=== PATIENT | male | born 1955 | race Caucasian/White ===

== ENCOUNTER 2021-09-03 08:51 | Inpatient (IN) | payer BC, OTHER ==
--- OUTSIDE RECORDS SUMMARY | 2021-09-03 08:55 | XMS REPORT | Continuity of Care Document ---
:1955 Author Organization [facility] t Address [address] [place] [address] Care Team Providers Name Role Phone GADHIA Attending Clinician Unavailable Doctor Unassigned, Name Attending Clinician Unavailable AMELIA Attending Clinician Unavailable MD VIGNESH THAYER Attending Clinician Unavailable Maya James PA-C Attending Clinician Marti LYN, M Attending Clinician Singer ENGLE Attending Clinician Catrina CARRILLO Attending Clinician Otf Fernandez MD Attending Clinician Attending Clinician Unavailable TONY Admitting Clinician Unavailable MD TONY Admitting Clinician Unavailable Otf Fernandez MD Admitting Clinician Payers Payer Name Policy Type Policy Number Effective Date Expiration Date S ource Problems Condition Condition Condition Status Onset Resolution Last Treating Co mments Source Name Details Category Date Date Treatment Clinician Date Acute Acute Disease Active Univers arterial arterial 6- ity of ischemic ischemic 00:00: [place] stroke, stroke, 00 Medical multifocal multifocal Br anch , , posterior posterior circulatio circulatio n n Occlusion 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 00:00: [place] of right of right 00 Medica l vertebral vertebral Bran ch artery artery Stroke of Stroke of Disease Active Uni vers uncertain uncertain - [place] of pathology pathology [place] High High Disease Active Univers cholestero cholestero it y of l l [facility] Meniere Meniere Disease Active Univers disease disease ity of [facility] Diabetes Diabetes Disease Active Unive rs ity of [facility] Allergies, Adverse Reactions, Alerts Allergy Allergy Status Severity Reaction(s) Onset Inactive Treating Comm ents Source Name Type Date Date Clinician NO KNOWN Drug Active Univers ALLERGIE Class ity of S [facility] Social History Social Habit Start Date Stop Date Quantity Comments Source Exposure to Not sure University of SARS-CoV-2 [place] Medical (event) Branch Tobacco use and 2021-01-08 2021-01-08 Never used Universit y of exposure 00:00:00 00:00:00 [facility] Alcohol intake 2021-01-08 2021-01-08 Current University of 00:00:00 00:00:00 non-drinker of [facility] alcohol Branch (finding) Tobacco Comment 2018-05-08 2018-05-08 Quit in 2015 Univers ity of 00:00:00 00:00:00 [facility] [birth year] [facility] Smoking Status Start Date Stop Date Source Former smoker 2021-01-08 00:00:00 2021-01-08 00:00:00 Universi ty [facility] Medications Ordered Filled Start Stop Current Ordering Indication Dosage Frequency Signature Comments Components Source Medication Medication Date Date Medication? Clinician (SIG) Name Name atorvastati Yes 80mg 80 mg, Univ ers n (LIPITOR) 6-29 Oral, QHS, it y of tablet 80 02:00: First dose [place] mg 00 (after Medical last Branch modificati on) on Tue01/12/21 at 2100, Until Discontinu ed, Routine glipiZIDE Yes 5mg Take 5 mg Uni vers (GLUCOTROL) 6-28 by mouth 3 it y of 5 mg tablet 23:11: (three) [place] 58 times Medical daily Branch before meals. Thyroid, Yes 120mg Take 120 Univ ers Pork, 6-28 mg by ity of (ARMOUR 23:11: mouth [place] THYROID) 58 daily. Medical 120 mg Tab Branch warfarin Yes 7.5mg Take 7.5 Univ ers (COUMADIN) 6-28 mg by ity of 7.5 mg 23:11: mouth. [place] tablet 58 Medical Branch metformin Yes 500mg Take 500 Uni vers ER 6-28 mg by ity of (GLUCOPHAGE 23:11: mouth 5 [place] as -XR) 500 mg 58 (five) Medica l 24 hr times Branch tablet daily. thyroid Yes 30mg Take 30 mg Univ ers (ARMOUR 6-28 by mouth ity of THYROID) 30 23:11: [place]. [place] mg tablet 58 Medical Branch Cinnamon Yes 1000mg Take 1,000 U nivers Bark 6-28 mg by ity of (CINNAMON) 23:11: mouth [place] 500 mg Cap 58 daily. Medical Branch triamterene Yes 1{tbl} Take 1 [place] -hydrochlor 6-28 tablet by ity of othiazid 23:11: mouth [place] 37.5-25 mg 58 daily. Medical tablet Branch multivit-mi Yes 1{tbl} Take 1 [place] n/FA/lycope 6-28 tablet by ity of n/lutein 23:11: mouth [place] (CENTRUM 58 daily. Medical SILVER MEN Branch ORAL) glipiZIDE Yes 10mg Take 10 mg [place] 10 mg 6-28 by mouth 3 ity of tablet 23:11: (three) [place] 58 times Medical daily Branch before meals. famotidine Yes 20mg Take 20 mg U nivers (PEPCID) 20 6-28 by mouth ity of mg tablet 23:11: daily. [place] 58 Medical Branch magnesium Yes 400mg Take 400 Uni vers carb,citrat 6-28 mg by ity of e,oxide 23:11: mouth [place] (MAGNESIUM 58 daily. Medical COMPLEX Branch ORAL) glipiZIDE Yes 5mg Take 5 mg Uni vers (GLUCOTROL) 6-28 by mouth 3 it y of 5 mg tablet 23:11: (three) [place] 58 times Medical daily Branch before meals. Thyroid, Yes 120mg Take 120 Univ ers Pork, 6-28 mg by ity of (ARMOUR 23:11: mouth [place] THYROID) 58 daily. Medical 120 mg Tab Branch warfarin Yes 7.5mg Take 7.5 Univ ers (COUMADIN) 6-28 mg by ity of 7.5 mg 23:11: mouth. [place] tablet 58 Medical Branch metformin Yes 500mg Take 500 Uni vers ER 6-28 mg by ity of (GLUCOPHAGE 23:11: mouth 5 [place] as -XR) 500 mg 58 (five) Medica l 24 hr times Branch tablet daily. thyroid Yes 30mg Take 30 mg Univ ers (ARMOUR 6-28 by mouth ity of THYROID) 30 23:11: [place]. [place] mg tablet 58 Medical Branch Cinnamon Yes 1000mg Take 1,000 U nivers Bark 6-28 mg by ity of (CINNAMON) 23:11: mouth [place] 500 mg Cap 58 daily. Medical Branch triamterene Yes 1{tbl} Take 1 [place] -hydrochlor 6-28 tablet by ity of othiazid 23:11: mouth [place] 37.5-25 mg 58 daily. Medical tablet Branch multivit-mi Yes 1{tbl} Take 1 [place] n/FA/lycope 6-28 tablet by ity of n/lutein 23:11: mouth [place] (CENTRUM 58 daily. Medical SILVER MEN Branch ORAL) glipiZIDE Yes 10mg Take 10 mg [place] 10 mg 6-28 by mouth 3 ity of tablet 23:11: (three) [place] 58 times Medical daily Branch before meals. famotidine Yes 20mg Take 20 mg U nivers (PEPCID) 20 6-28 by mouth ity of mg tablet 23:11: daily. [place] 58 Medical Branch magnesium Yes 400mg Take 400 Uni vers carb,citrat 6-28 mg by ity of e,oxide 23:11: mouth [place] (MAGNESIUM 58 daily. Medical COMPLEX Branch ORAL) glipiZIDE Yes 5mg Take 5 mg Uni vers (GLUCOTROL) 6-28 by mouth 3 it y of 5 mg tablet 23:11: (three) [place] 58 times Medical daily Branch before meals. Thyroid, Yes 120mg Take 120 Univ ers Pork, 6-28 mg by ity of (ARMOUR 23:11: mouth [place] THYROID) 58 daily. Medical 120 mg Tab Branch warfarin Yes 7.5mg Take 7.5 Univ ers (COUMADIN) 6-28 mg by ity of 7.5 mg 23:11: mouth. [place] tablet 58 Medical Branch metformin Yes 500mg Take 500 Uni vers ER 6-28 mg by ity of (GLUCOPHAGE 23:11: mouth 5 [place] as -XR) 500 mg 58 (five) Medica l 24 hr times Branch tablet daily. thyroid Yes 30mg Take 30 mg Univ ers (ARMOUR 6-28 by mouth ity of THYROID) 30 23:11: [place]. [place] mg tablet 58 Medical Branch Cinnamon Yes 1000mg Take 1,000 U nivers Bark 6-28 mg by ity of (CINNAMON) 23:11: mouth [place] 500 mg Cap 58 daily. Medical Branch triamterene Yes 1{tbl} Take 1 [place] -hydrochlor 6-28 tablet by ity of othiazid 23:11: mouth [place] 37.5-25 mg 58 daily. Medical tablet Branch multivit-mi Yes 1{tbl} Take 1 [place] n/FA/lycope 6-28 tablet by ity of n/lutein 23:11: mouth [place] (CENTRUM 58 daily. Medical SILVER MEN Branch ORAL) glipiZIDE Yes 10mg Take 10 mg [place] 10 mg 6-28 by mouth 3 ity of tablet 23:11: (three) [place] 58 times Medical daily Branch before meals. famotidine Yes 20mg Take 20 mg U nivers (PEPCID) 20 6-28 by mouth ity of mg tablet 23:11: daily. [place] 58 Medical Branch magnesium Yes 400mg Take 400 Uni vers carb,citrat 6-28 mg by ity of e,oxide 23:11: mouth [place] (MAGNESIUM 58 daily. Medical COMPLEX Branch ORAL) glipiZIDE Yes 5mg Take 5 mg Uni vers (GLUCOTROL) 6-28 by mouth 3 it y of 5 mg tablet 23:11: (three) [place] 58 times Medical daily Branch before meals. Thyroid, 0 Yes 120mg Take 120 Univ ers Pork, 6-28 mg by ity of (ARMOUR 23:11: mouth [place] THYROID) 58 daily. Medical 120 mg Tab Branch warfarin Yes 7.5mg Take 7.5 Univ ers (COUMADIN) 6-28 mg by ity of 7.5 mg 23:11: mouth. [place] tablet 58 Medical Branch metformin Yes 500mg Take 500 Uni vers ER 6-28 mg by ity of (GLUCOPHAGE 23:11: mouth 5 [place] as -XR) 500 mg 58 (five) Medica l 24 hr times Branch tablet daily. thyroid Yes 30mg Take 30 mg Univ ers (ARMOUR 6-28 by mouth ity of THYROID) 30 23:11: daily. [place] mg tablet 58 Medical Branch Cinnamon Yes 1000mg Take 1,000 U nivers Bark 6-28 mg by ity of (CINNAMON) 23:11: mouth [place] 500 mg Cap 58 daily. Medical Branch triamterene Yes 1{tbl} Take 1 [place] -hydrochlor 6-28 tablet by ity of othiazid 23:11: mouth [place] 37.5-25 mg 58 daily. Medical tablet Branch multivit-mi Yes 1{tbl} Take 1 [place] n/FA/lycope 6-28 tablet by ity of n/lutein 23:11: mouth [place] (CENTRUM 58 daily. Medical SILVER MEN Branch ORAL) glipiZIDE Yes 10mg Take 10 mg [place] 10 mg 6-28 by mouth 3 ity of tablet 23:11: (three) [place] 58 times Medical daily Branch before meals. famotidine Yes 20mg Take 20 mg U nivers (PEPCID) 20 6-28 by mouth ity of mg tablet 23:11: daily. [place] 58 Medical Branch magnesium Yes 400mg Take 400 Uni vers carb,citrat 6-28 mg by ity of e,oxide 23:11: mouth [place] (MAGNESIUM 58 daily. Medical COMPLEX Branch ORAL) warfarin Yes 7.5mg 7.5 mg, Unive rs (COUMADIN) 6-28 Oral, ity of tablet 7.5 22:00: DAILY AT [place] mg 00 1700, Medical First dose Branch (after last modificati on) on Tue01/12/21 at 1700, Until Discontinu ed, Routine
INR Goal Range: 2-3
IND ICATION (More than one indication for warfarin can be selected): DVT and/or PE ezetimibe-s 2020-2020- No 1{tbl} Take 1 Tab Univers imvastatin 6-28 06-28 by mouth ity of 10-80 19:09: 00:00 at [place] (VYTORIN 34 :00 bedtime. Medical ) Branch 10-80 mg tablet atorvastati 2021- No [id number] 80mg Take 1 Univers n 80 mg 01-12 tablet by ity of tablet 00:00: 04:59 mouth at [place] 00 :00 bedtime Medical for 360 Branch days. atorvastati 2021- No [id number] 80mg Take 1 Univers n 80 mg 01-12 tablet by ity of tablet 00:00: 04:59 mouth at [place] 00 :00 bedtime Medical for 360 Branch days. atorvastati 2021- No [id number] 80mg Take 1 Univers n 80 mg 01-12 tablet by ity of tablet 00:00: 04:59 mouth at [place] 00 :00 bedtime Medical for 360 Branch days. atorvastati 2021- No [id number] 80mg Take 1 Univers n 80 mg 01-12 tablet by ity of tablet 00:00: 04:59 mouth at [place] 00 :00 bedtime Medical for 360 Branch days. warfarin 2020- No 10mg 10 mg, Univer s (COUMADIN) 01-11 Oral, ity of tablet 10 22:00: 12:11 DAILY AT [place] as mg 00 :32 1700, Medical First dose Branch (after last modificati on) on 01/11/21 at 1700, Until Discontinu ed, Routine
INR Goal Range: 2-3
IND ICATION (More than one indication for warfarin can be selected): DVT and/or PE aspirin 81 2020- No [id number] 81mg Take 1 Univers mg chewable 01-11 tablet by it y of tablet 00:00: 04:59 mouth [place] 00 :00 daily for Medical 90 days. Branch vitamin 2020- No [id number] 1000ug Take 1 Univers B-12 1,000 01-11 tablet by ity of mcg tablet 00:00: 04:59 mouth [place] 00 :00 daily for Medical 90 days. Branch aspirin 81 2020- No [id number] 81mg Take 1 Univers mg chewable 01-11 tablet by it y of tablet 00:00: 04:59 mouth [place] 00 :00 daily for Medical 90 days. Branch vitamin 2020- No [id number] 1000ug Take 1 Univers B-12 1,000 01-11 tablet by ity of mcg tablet 00:00: 04:59 mouth [place] 00 :00 daily for Medical 90 days. Branch aspirin 81 2020- No [id number] 81mg Take 1 Univers mg chewable 01-11 tablet by it y of tablet 00:00: 04:59 mouth [place] 00 :00 daily for Medical 90 days. Branch vitamin 2020- No [id number] 1000ug Take 1 Univers B-12 1,000 01-11 tablet by ity of mcg tablet 00:00: 04:59 mouth [place] 00 :00 daily for Medical 90 days. Branch aspirin 81 2020- No [id number] 81mg Take 1 Univers mg chewable 01-11 tablet by it y of tablet 00:00: 04:59 mouth [place] 00 :00 daily for Medical 90 days. Branch vitamin 2020- No [id number] 1000ug Take 1 Univers B-12 1,000 01-11 tablet by ity of mcg tablet 00:00: 04:59 mouth [place] 00 :00 daily for Medical 90 days. Branch warfarin 2020- No 7.5mg 7.5 mg, Univ ers (COUMADIN) 01-10 Oral, ity of tablet 7.5 22:00: 13:58 DAILY AT [place] mg 00 :12 1700, Medical First dose Branch on 01/10/21 at 1700, Until Discontinu ed, Routine
INR Goal Range: 2-3
IND ICATION (More than one indication for warfarin can be selected): DVT and/or PE vitamin 2020- Yes 1000ug 1,000 mcg, [place] B-12 01-10 Oral, ity of (CYANOCOBAL 14:00: DAILY, [place] SANTO) 00 First dose Medical tablet on Sat Branch 1,000 mcg 01/10/21 at 0900, Until Discontinu ed, Routine polyethylen Yes 17g 17 g, Unive rs e glycol 01-10 Oral, ity of 3350 powder 14:00: DAILY, [place] 17 g 00 First dose Medical on Tue Branch 01/10/21 at 0900, Until Discontinu ed, Routine atorvastati 2020- No [id number] 40mg Take 1 Univers n 40 mg 01-10 tablet by ity of tablet 00:00: 00:00 mouth at [place] 00 :00 bedtime Medical for 90 Branch days. barium 2020- No [id number] 10mL 10 mL, Uni vers sulfate-NO 01-09 Oral, ity of CHARGE- 19:15: 19:20 ONCE, 1 [place] (VARIBAR 00 :00 dose, Fri Medica l NECTOR) 40 01/09/21 at Bra nch % (w/v) 1415, oral Routine suspension 10 mL barium 2020- No [id number] 40g 40 g, Univ ers sulfate 01-09 Oral, ity of (VARIBAR 19:15: 19:20 ONCE, 1 [place] THIN 00 :00 dose, Fri Medical LIQUID) 81 01/09/21 at Bra nch % (w/w) 1415, oral powder Routine 40 g sulfur 2020- No [id number] 5mL 5 mL, Univ ers hexafluorid 01-09 Intravenou i ty of e microsphr 17:15: 17:15 s, ONCE, 1 [place] (LUMASON) 00 :00 dose, Fri Medic al injection 5 01/09/21 at Br anch mL 1215, Routine
member of technical staff approving Restricted medication : MARIA LUISA GARCIA SALAM Saline Yes [id number] 6mL 6 mL, Unive rs Bubble 01-09 Injection, ity of Study 17:05: SEE-INSTRU [place] 59 CTIONS, Medical Starting Branch Tue01/09/21 at 1205, Until Discontinu ed, Routine aspirin Yes 81mg 81 mg, Univers chewable 01-09 Oral, ity of tablet 81 14:00: DAILY, [place] mg 00 First dose Medical on Fri Branch 01/09/21 at 0900, Until Discontinu ed, Routine sennosides- Yes 1{tbl} 1 tablet, [facility] docusate 01-09 Enteral, ity of sodium 14:00: DAILY, [place] (SENOKOT-S) 00 First dose Me dical 8.6-50 mg on Tue Branch per tablet 01/09/21 at 1 tablet 0900, Until Discontinu ed, Routine thyroid Yes 30mg 30 mg, Univers (ARMOUR 01-09 Oral, ity of THYROID) 11:00: QAM-0600, [place] tablet 30 00 First dose Medi nia mg on Tue Branch 01/09/21 at 0600, Until Discontinu ed, Routine atorvastati 2020- No 40mg 40 mg, Uni vers n (LIPITOR) 01-09 06-28 Oral, QHS, i ty of tablet 40 02:00: 18:59 First dose [place] mg 00 :01 on [facility] 01/08/21 at Branch 2100, Until Discontinu ed, Routine famotidine Yes 20mg 20 mg, Unive rs (PEPCID AC) 01-09 Oral, BID, it y of tablet 20 01:00: First dose [place] mg 00 on [facility] 01/08/21 at Branch 2000, Until Discontinu ed, Routine
Indicatio n for use: None of the above chlorhexidi Yes 15mL 15 mL, Univ ers ne -24 Oral ity of (PERIDEX) 23:00: ([place] 0.12 % 00 Spit Out), Medical mouthwash Q6H, First Bran ch 15 mL dose on [facility] 01/08/21 at 1800, Until Discontinu ed, Routine Sliding Yes Subcutaneo Univ ers Scale 6-24 us, TID ity of Insulin - 22:00: MEALS+HS, [place] Lispro 00 First dose Medical (HumaLOG) + on [facility] Branch Fsbg 01/08/21 at Testing 1700, Until Discontinu ed, Routine NaCl 0.9% 2020- No 1000mL at 42 Univ ers (NS) IV 01-08 06-27 mL/hr, IV ity of infusion 21:15: 03:37 Infusion, [place] 1,000 mL 00 :35 CONTINUOUS Medic al , Starting Branch [place] 01/08/21 at 1615, Until 01/10/21 at 2237, Routine enoxaparin No 1mg/kg 100 mg [place] (LOVENOX) 01-08 (rounded ity o f injection 20:15: 15:37 [place] 99.8 [place] 100 mg 00 :05 mg = 1 Medical mg/kg Branch ?99.8 kg), Subcutaneo us, Q12H ABX, First dose on [place] 01/08/21 at 1515, Until Discontinu ed, Routine famotidine 2020- No 40mg Take 40 mg Univers (PEPCID) 40 01-08 by mouth ity of mg tablet 20:02: 00:00 daily. [place] 39 :00 Medical Branch acetaminoph Yes 650mg 650 mg, [place] en 01-08 Enteral, ity of (TYLENOL) 19:55: Q6HPRN, [place] 160 mg/5 mL 06 Starting Medi nia liquid 650 [place] Branch mg 01/08/21 at 1455, Until Discontinu ed, Routine, Pain (scale 4-6), Temp >37.5 niCARdipine No 2.5mg/h 2.5-15 Univers (CARDENE 01-08 mg/hr ity of I.V.) 40 mg 19:35: 21:43 (12.5-75 [place] in NaCL 200 39 :40 mL/hr), IV Me dical mL (RTU) Infusion, Branch infusion TITRATE, SBP < 140, Starting [place] 01/08/21 at 1435
Initiate infusion at 2.5 mg/hr.&nbs p; Ti trate by 2.5 mg/hr every 5 minutes to 15 minutes as needed to achieve and maintain goal blood pressure. Maximum dose = 15 mg/hr. If goal not maintained at maximum allowed dose, contact prescriber .
clopidogreL No 300mg 300 mg, U nivers (PLAVIX) 01-08 Oral, ity of tablet 300 19:30: 18:34 ONCE, 1 [place] mg 00 :00 dose, [place] Medical 01/08/21 at Branch 1430, Routine aspirin 2020- No 325mg 325 mg, Unive rs E.C. 01-08 Oral, ity of (ECOTRIN) 19:30: 18:34 ONCE, 1 [place] tablet 325 00 :00 dose, [place] Medi nia mg 01/08/21 at Branch 1430, STAT iopamidol 2020- No [id number] 100mL 100 mL, Univers (ISOVUE 01-08 Intravenou ity o f 370-500 mL) 19:15: 17:55 s, ONCE, 1 [place] injection 00 :00 dose, [place] Medic al 100 mL 01/08/21 at Branch 1415, Routine metoclopram 2020- No 10mg 10 mg, Uni vers sahara HCl 01-08 Slow IV ity of (REGLAN) 19:00: 17:58 Push, [place] injection 00 :00 ONCE, 1 Medical 10 mg dose, [place] Branch 01/08/21 at 1400, CARMEN ondansetron 2020- No 4mg 4 mg, Slow Univers (ZOFRAN 01-08 IV Push, ity of (PF)) 18:45: 17:48 ONCE, 1 [place] injection 4 00 :00 dose, [place] Med ical mg 01/08/21 at Branch 1345, CARMEN NaCl 0.9% Yes 5mL 5 mL, Slow [place] (NS) 01-08 IV Push, ity of injection 5 17:30: PRN - SEE [place] mL 00 INSTRUCTIO Medical NS, Branch Starting [place] 01/08/21 at 1230, Until Discontinu ed, 10 mL Vital Signs Vital Name Observation Time Observation Value Comments Source Systolic blood 2021-01-12 20:28:00 137 mm[Hg] Univer sity of pressure [facility] Diastolic blood 2021-01-12 20:28:00 74 mm[Hg] Unive rsity of pressure [facility] Heart rate 2021-01-12 20:28:00 74 /min [facility] Body temperature 2021-01-12 20:28:00 [facility].17 [facility] Res[facility] rate 2021-01-12 20:28:00 16 /min [facility] Oxygen saturation in 2021-01-12 20:28:00 96 /min [facility] Arterial blood by [facility] Pulse oximetry Branch Body weight 2021-01-09 13:00:00 99.791 kg [facility] BMI 2021-01-09 13:00:00 29.84 kg/m2 [facility] Body height 2021-01-08 21:54:00 182.9 cm [facility] Procedures Procedure Date / Time Performing Clinician Source Performed EXTERNAL PROVIDER 2021-01-22 05:01:00 Doctor Unassigned, No [facility] RECORDS [facility] POCT GLUCOSE (AUTOMATED) 2021-01-12 20:29:00 Bryn Fernandez Uni versity of [facility] POCT GLUCOSE (AUTOMATED) 2021-01-12 17:34:00 Bryn Fernandez Uni versity of [facility] POCT GLUCOSE (AUTOMATED) 2021-01-12 12:30:00 Bryn Fernandez Uni versity of [facility] PROTHROMBIN TIME / INR 2021-01-12 10:34:00 Azra More Uni versity of [facility] POCT GLUCOSE (AUTOMATED) 2021-01-12 01:44:00 Bryn Fernandez Uni versity of [facility] POCT GLUCOSE (AUTOMATED) 2021-01-11 22:45:00 Bryn Fernandez Uni versity of [facility] POCT GLUCOSE (AUTOMATED) 2021-01-11 17:32:00 Roberta Fernandeznd Uni versity of [facility] POCT GLUCOSE (AUTOMATED) 2021-01-11 13:40:00 Roberta Fernandeznd Uni versity of [facility] PROTHROMBIN TIME / INR 2021-01-11 08:39:00 Azra More Uni versity of [facility] POCT GLUCOSE (AUTOMATED) 2021-01-11 01:31:00 Bryn Fernandez Uni versity of [facility] POCT GLUCOSE (AUTOMATED) 2021-01-10 22:13:00 Bryn Fernandez Uni [facility] PROTHROMBIN TIME / INR 2021-01-10 16:22:00 [facility] 2021-01-10 12:33:00 [facility] 2021-01-10 04:46:00 Bryn Fernandez [facility] POCT GLUCOSE (AUTOMATED) 2021-01-09 22:55:00 [facility] [place] MODIFIED BARIUM 2021-01-09 19:31:30 Zac Tilley iversmichael [facility] POCT GLUCOSE (AUTOMATED) 2021-01-09 17:00:00 Nikolay Fritz [facility] acute hospital TRANSTHORACIC ECHO (TTE) 2021-01-09 14:05:00 Arnoldo Tilley [facility] COMPLETE W/ CONTRAST Medical [facility] POCT GLUCOSE (AUTOMATED) 2021-01-09 12:43:00 Nikolay Fritz General acute hospital PROTHROMBIN TIME / INR 2021-01-09 08:35:00 Karla Tilley [facility] ACTIVATED PARTIAL 2021-01-09 08:35:00 Zac Tilley [facility] VITAMIN B12, LEVEL 2021-01-09 07:56:00 Rashmi Araujo [facility] FREE T4 2021-01-09 07:56:00 [facility] BASIC METABOLIC PANEL 2021-01-09 07:56:00 Zac Tilley [facility] (NA, K, CL, CO2, Medical Branch GLUCOSE, BUN, CREATININE, CA) CBC WITH DIFF 2021-01-09 07:56:00 [facility] FREE T3 2021-01-09 07:56:00 Julia James Salmon o [facility] MR STROKE BRAIN WO 2021-01-09 05:35:00 [facility] (AUTOM[facility]) 2021-01-09 01:47:00 Nikolay Fritz [facility] acute hospital URINE DRUG (IMMUNOASSAY) 2021-01-08 22:36:00 Arnoldo Tilley [facility] - COMPREHENSIVE DRUG Medical [facility] SCREEN URINALYSIS 2021-01-08 22:36:00 Zac Tilley [facility] POCT GLUCOSE (AUTOMATED) 2021-01-08 21:34:00 Nikolay Fritz [facility] acute hospital HB ECG ROUTINE & RHYTHM 2021-01-08 21:32:01 Blanquita Tilley [facility] STRIP [facility] XR STROKE CHEST 1 VW 2021-01-08 18:08:41 Poncho Perera [facility] CT STROKE ANGIOGRAM HEAD 2021-01-08 18:05:58 Poncho Perera [facility] acute [facility] CT STROKE ANGIOGRAM NECK 2021-01-08 18:05:58 Poncho Perera General acute hospital COVID-19 (ID NOW RAPID 2021-01-08 18:05:00 [facility] TESTING) Medical Branch LAB ONLY COVID 2021-01-08 18:05:00 Poncho Perera [facility] INTERPRETATION [facility] CONSENT/REFUSAL FOR 2021-01-08 17:56:41 Doctor Unassigned, No [facility] DIAGNOSIS AND TREATMENT Name Medical B[place] NOTICE OF PRIVACY 2021-01-08 17:55:48 Doctor Unassigned, No [facility] PRACTICES Name [facility] CT STROKE HEAD WO 2021-01-08 17:52:29 Poncho Perera [facility] CONTRAST Medical Branch MAGNESIUM 2021-01-08 17:38:00 Zac Tilley [facility] TROPONIN I 2021-01-08 17:38:00 Poncho Perera [facility] THYROID STIMULATING 2021-01-08 17:38:00 Zac Tilley [facility] HORMONE [facility] BASIC METABOLIC PANEL 2021-01-08 17:38:00 Poncho Perera [facility] (NA, K, CL, CO2, Medical Branch GLUCOSE, BUN, CREATININE, CA) LIPID PANEL 2021-01-08 17:38:00 Zac Tilley [facility] ([id number])(TOTAL Medical Branch CHOLESTEROL, TRIGLYCERIDES, HDL) CBC WITHOUT DIFF 2021-01-08 17:38:00 Poncho Perera [facility] GLYCOSYLATED HEMOGLOBIN 2021-01-08 17:38:00 Blanquita Tilley [facility] (A1C) [facility] PROTHROMBIN TIME / INR 2021-01-08 17:38:00 Poncho Perera [facility] ACTIVATED PARTIAL 2021-01-08 17:38:00 Pnocho [facility] [facility], located within [facility] FREE T3 2021-01-08 17:38:00 [facility] 2021-01-08 17:37:00 Doctor Unassigned, No [facility] Name [facility] HB ECG ROUTINE & RHYTHM 2021-01-08 17:28:57 Poncho Perera [facility] STRIP [facility] Branch AGREEMENTS 2021-01-08 05:01:00 Doctor Unassigned, No [facility] AUTHORIZATIONS AND Name Medical [facility] h IRREVOCABLE ASSIGNMENTS (FORM 2001) Encounters Start End Encounter Admission Attending Care Care Encounter Source Date/Time Date/Time Type Type Clinicians Facility Department ID 2021-09-02 2021-09-02 Outpatient [facility] [id number] [address] [place] 00:00:00 00:00:00 JENNIFER 523 Method i 2021-06-26 2021-06-26 Outpatient [facility] [id number] [address] [place] 00:00:00 00:00:00 JENNIFER 752 Method i 2021-06-26 2021-06-26 Outpatient [facility] [id number] [address] [place] 00:00:00 00:00:00 938 Method i 2021-06-26 2021-06-26 Outpatient [facility] [id number] [address] [place] 00:00:00 00:00:00 JENNIFER 750 Method i 2021-02-25 2021-02-25 Outpatient [facility] [id number] [address] [place] 00:00:00 00:00:[address] 2021-01-22 2021-01-22 Orders Doctor SOCRATES 1.2.840.114 [id number] [facility] 00:00:00 00:00:00 Only Unassigned, MARIA L 350.1.13.10 ity of [place] [facility] 4.2.7.2.[phone] [facility] 009 Branch 2021-01-14 2021-01-21 [id number] [address] [place] 00:00:00 00:00:00 DRAGAN [address] 2021-01-13 2021-01-13 Telephone Bulgarian, JOYAIT 1.2.840.114 [id number] Univers 00:00:00 00:00:00 [facility] 350.1.13.10 i [place] [place] [phone] [facility] 803 Branch 2021-01-13 2021-01-13 Transition Lola Kidd 1.2.840.114 [id number] Univers 00:00:00 00:00:00 of Care Mia Mar 350.1.13.10 [place] [place] [phone] [facility] 403 Branch 2021-01-08 2021-01-12 Hospital Poncho Perera 1.2.840.1 [id number] Univers 12:42:00 17:30:00 Encounter Nikolay Fritz 350.1.13.[address] [facility] 4.2.7 .2.[address] [place] [phone] [facility] 098 Branch 2021-01-08 2021-01-08 Emergency X , [facility] ERT [id number] Univers 12:42:00 12:42:00 PONCHO rodriguez [facility] Results Test Description Test Time Test Comments Results Result Comments Source SARS-CoV-2 (COVID-19) RNA [Presence] in Respiratory sp ecimen by 2021-01-15 11:33:35 BRYCE with probe detection Test Item Value Reference Range Interpretation Comme nts SARS-CoV-2 (COVID-19) RNA [Presence] in Respiratory Not detected No t-Detected specimen by BRYCE with probe detection (test code = 55090-3) Whether patient is employed in a healthcare setting (test code = 28609-2) Whether the patient has symptoms related to condition of interest (test code = 86236-9) Patient was hospitalized because of this condition (test code = 77236-7) Whether the patient was admitted to intensive care unit (ICU) for condition of interest (test code = 12790-8) Whether patient resides in a congregate care setting (test code = 32562-5) FREE [id number] 21:32:59 Test Item Value Reference Range Interpretation Comments FREE T3 (test code = 5423158949) 2.93 pg/mL 2.77-5.27 Lab Interpretation (test code = Normal 04762-9) [facility] GLUCOSE (AUTOMATED)2021-01-12 20:31:14 Test Item Value Reference Range Interpretation Comments POCT GLU (test code = 0858245331) 141 mg/dL 70-110 H Lab Interpretation (test code = Abnormal 06702-4) [facility] GLUCOSE (AUTOMATED)2021-01-12 17:35:15 Test Item Value Reference Range Interpretation Comments POCT GLU (test code = 5756672000) 121 mg/dL 70-110 H Lab Interpretation (test code = Abnormal 74057-3) [facility] BARIUM SWALLOW, (COOKIE)2021-01-12 15:29:31 Laryngeal penetration without aspiration to thin and nectar thick liquids. Please see the separate speech pathologist's report for recommendations andadditional findings. Preliminary Report Dictated by Resident: Jose Jordan I reviewed this study and agree. Jacquelyn, Neto Jasso MD., have reviewed this study and agree with theabove report.EXAM: [place] MODIFIED BARIUM SWALLOW HISTORY: 65 years-old; Male;dysphagia TECHNIQUE: A video swallowing exam with fluoroscopy was performed inconjunction with the speech pathologist who administered multipleconsistencies of barium. COMPARISON: None FINDINGS: Parti al elevation of the larynx and partial inversion of the epiglottis wasseen during the swallowing mechanism. Laryngeal penetration without evidence of aspiration is seen to thin andnectar thick liquids.No penetration is seen to pudding or solids. Postsurgical changes of posterior cervical spinal fusion are partiallyvisualized. [facility], Radiant Results Inft User - 01/12/2021 10:30 AM CDT EXAM: [place] MODIFIED BARIUM SWALLOWHISTORY: 65 years-old; Male; dysphagia TECHNIQUE: A video swallowing exam with fluoroscopy was performed inconjunction with the speech pathologist who administered multipleconsistencies of barium. COMPARISON: NoneFINDINGS:Partial elevation of the larynx and partial inversion of the epiglottis wasseen during the swallowing mechanism.Laryngeal penetration without evidence of aspiration is seen to thin andnectar thick liquids. No penetration is seen to pudding or solids.Postsurgical changes of posterior cervical spinal fusion are partiallyvisualized.IMPRESSIONLaryngeal penetration without aspiration to thin and nectar thick liquids.Please see the separate speech pathologist's report for recommendations andadditional findings.Preliminary Report Dictated by Resident: Jose Rutherford reviewed this study and agree.INeto MD., have reviewed this study and agree with theabove report.[facility] GLUCOSE (AUTOMATED)2021-01-12 12:32:11 Test Item Value Reference Range Interpretation Comments POCT GLU (test code = 5861980197) 109 mg/dL 70-110 Lab Interpretation (test code = Normal 80667-8) [facility] / [id number] 10:45:18 Test Item Value Reference Range Interpretation Comments PROTIME PATIENT (test See_Comment H [Auto mated message] code = 5964-2) The system Quovo generated this result transmitted ref erence range: 10.1 - 1 2.6 Seconds. The reference range was not used to int erpret this result as normal/abnormal . INR (test code = 6301-6) Nor mal INR <1.1; Warfarin Therap eutic range 2.0 to 3. 0 or 2.5 to 3.5, dep ending upon the indica tions. Lab Interpretation (test Abnormal code = 27799-5) [facility] GLUCOSE (AUTOMATED)2021-01-12 01:46:23 Test Item Value Reference Range Interpretation Comments POCT GLU (test code = 1610949495) 122 mg/dL 70-110 H Lab Interpretation (test code = Abnormal 89826-6) [facility] GLUCOSE (AUTOMATED)2021-01-11 22:46:49 Test Item Value Reference Range Interpretation Comments POCT GLU (test code = 1937408185) 96 mg/dL 70-110 Lab Interpretation (test code = Normal 11315-5) [facility] GLUCOSE (AUTOMATED)2021-01-11 17:39:16 Test Item Value Reference Range Interpretation Comments POCT GLU (test code = 5579861102) 146 mg/dL 70-110 H Lab Interpretation (test code = Abnormal 50015-0) [facility] GLUCOSE (AUTOMATED)2021-01-11 13:43:14 Test Item Value Reference Range Interpretation Comments POCT GLU (test code = 0974742281) 119 mg/dL 70-110 H Lab Interpretation (test code = Abnormal 32297-1) [facility] HospitalPROT[facility]OMBIN [facility] / [id number] 08:54:02 Test Item Value Reference Range Interpretation Comments PROTIME PATIENT (test See_Comment H [Auto mated message] code = 5964-2) The system Quovo generated this result transmitted ref erence range: 10.1 - 1 2.6 Seconds. The reference range was not used to int erpret this result as normal/abnormal . INR (test code = 6301-6) Nor mal INR <1.1; Warfarin Therap eutic range 2.0 to 3. 0 or 2.5 to 3.5, dep ending upon the indica tions. Lab Interpretation (test Abnormal code = 70515-0) [facility] GLUCOSE (AUTOMATED)2021-01-11 01:31:58 Test Item Value Reference Range Interpretation Comments POCT GLU (test code = 7060435933) 210 mg/dL 70-110 H Lab Interpretation (test code = Abnormal 99983-0) [facility] Hospital[facility] ONLY COVID [id number] 01:17:28COVID DMT InterpretationInterpretation/Recommendations: Molecular NAAT Tests for Active Infection with the SARS-CoV-2 Virus: The patient has currently tested negative for the SARS-CoV-2 virus that causes COVID-19 illness. This most likely indicates that the patient does not have an active infection with the SARS-CoV-2 virus. However, infection is not completely ruled out as the false negative rate for molecular NAAT testing using a nasopharyngeal sample can be up to 30%, mostly dependent on the timing of sample collection in relation to illness onset and any deficiencies in sampling techniques. If the patient has symptoms concerning for COVID-19 illness, a repeat NAAT test (PCR, Rapid ID Now, etc.) should be performed, at which time the SARS-CoV-2 virus - if present - may have reached a detectable viral load (usually peaking by the end of the first week of symptoms). Tests for IgM and/or IgGAntibodies to the SARS-CoV-2 Virus: If the patient develops COVID-19 illness in the future, testingfor IgM and IgG antibodies approximately 3 weeks after illness onset will likely indicate if the patient has produced antibodies to the SARS-CoV-2 virus. However, some patients may take longer to develop detectable antibodies, while some patients who were infected with SARS-CoV-2 may never develop antibodies. While antibodies to SARS-CoV-2 may provide some degree of immunity, at this time the strength and duration of the antibody response is unknown. ? ? Interpretation Result Comments:These interpretation comments are basedupon all COVID-19 testing the patient has had at [facility], including molecular NAAT testing (more commonly known as PCR testing and Rapid ID Now testing) and antibody testing. It does not take into accountany testing that a patient has had outside of the [facility] medical record. [facility] SERVICESCOVID [id number] Rapid ID NOW (no units) ? ? Date ? Value ? 01/08/2021 ? Not Detected ? [facility]AUT[facility])2021-01-10 22:14:44 Test Item Value Reference Range Interpretation Comments POCT GLU (test code = 9022638360) 103 mg/dL 70-110 Lab Interpretation (test code = Normal 33626-5) [facility] HospitalPROTHROMBIN TIME / [id number] 16:48:17 Test Item Value Reference Range Interpretation Comments PROTIME PATIENT (test See_Comment H [Auto mated message] code = 5964-2) The system Quovo generated this result transmitted ref erence range: 10.1 - 1 2.6 Seconds. The reference range was not used to int erpret this result as normal/abnormal . INR (test code = 6301-6) Nor mal INR <1.1; Warfarin Therap eutic range 2.0 to 3. 0 or 2.5 to 3.5, dep ending upon the indica tions. Lab Interpretation (test Abnormal code = 79888-7) [facility] GLUCOSE (AUTOMATED)2021-01-10 12:34:37 Test Item Value Reference Range Interpretation Comments POCT GLU (test code = 0637699085) 106 mg/dL 70-110 Lab Interpretation (test code = Normal 81852-1) [facility] GLUCOSE (AUTOMATED)2021-01-10 04:47:26 Test Item Value Reference Range Interpretation Comments POCT GLU (test code = 9345080804) 118 mg/dL 70-110 H Lab Interpretation (test code = Abnormal 93140-9) [facility] GLUCOSE (AUTOMATED)2021-01-09 23:01:40 Test Item Value Reference Range Interpretation Comments POCT GLU (test code = 1981790232) 143 mg/dL 70-110 H Lab Interpretation (test code = Abnormal 00345-9) [facility] GLUCOSE (AUTOMATED)2021-01-09 17:03:09 Test Item Value Reference Range Interpretation Comments POCT GLU (test code = 8630754479) 177 mg/dL 70-110 H Lab Interpretation (test code = Abnormal 02606-1) [facility] HospitalVITAMIN B12, [id number] 14:03:51 Test Item Value Reference Range Interpretation Comments VIT B12 (test code = 471 pg/mL 240-930 8170719203) NAVI (test code = NAVI) Biotin has been reported to cause a positive bias, interpret results relative to patient's use of biotin. Lab Interpretation (test Normal code = 89353-9) [facility] HospitalMR STROKE BRAIN WO [id number] 13:19:55 Impression: No acute intracranial abnormality. No acute/subacute infarct. Left frontal convexity 0.9cm meningioma. Likely supra and infratentorial foci of chronic microhemorrhages in nonspecific distribution with amyloid angiopathy and hypertensive etiologiesin the differential. Preliminary Report Dictated by Resident: Carmel Orozco MD., have reviewed this study and agree with theabove report.EXAMINATION: MR STROKE BRAIN WO CONTRAST HISTORY: Neuro deficit, acute, stroke suspected COMPARISON: ?CT head without contrast 01/08/2021 TECHNIQUE: Multiplanar and multisequence MRI imaging of the brain wasobtained without contrast. FINDINGS: The ventricles and cerebral sulci are normal in caliber and configuration.Left frontal convexity 0.9 cm T1 hyperintense dural based lesion withdiffusion restriction and susceptibility signal loss consistent withmeningioma. No intracranial mass effect, midline shift, hydrocephalus orpathological extra-axial fluid collection is present. The basal cisternsare unremarkable. No restricted diffusion is present to suggest acute infarct. Scattered deepwhite matter T2/FLAIR hyperintensities are nonspecific and likelyrepresents sequela of chronic microvascular ischemia. Supra andinfratentorial foci of susceptibility signal loss likely representmicrohemorrhages. Loss of intradural right vertebral artery flow void. No abnormal fluidsignal is present in the mastoid air cells or paranasal air sinuses. Rightpseudophakia. [facility], Radiant Results Inft User - 01/09/2021 8:21 AM CDT EXAMINATION: MR STROKE BRAIN WO CONTRASTHISTORY: Neuro deficit, acute, stroke suspected COMPARISON: CT head without contrast 01/08/2021TECHNIQUE: Multiplanar and multisequence MRI imaging of the brain wasobtained without contrast.FINDINGS:The ventricles and cerebral sulci are normal in caliber and configuration.Left fro ntal convexity 0.9 cm T1 hyperintense dural based lesion withdiffusion restriction and susceptibility signal loss consistent withmeningioma. No intracranial mass effect, midline shift, hydrocephalus orpathological extra- axial fluid collection is present. The basal cisternsare unremarkable.No restricted diffusion is present to suggest acute infarct. Scattered deepwhite matter T2/FLAIR hyperintensitiesare nonspecific and likelyrepresents sequela of chronic microvascular ischemia. Supra andinfratentorial foci of susceptibility signal loss likely representmicrohemorrhages.Loss of intradural right vertebral artery flow void. No abnormal fluidsignal is present in the mastoid air cells or paranasal air sinuses. Rightpseudophakia. IMPRESSIONImpression:No acute intracranial abnormality. No acute/subacuteinfarct.Left frontal convexity 0.9 cm meningioma.Likely supra and infratentorial foci of chronic microhemorrhages in nonspecific distribution with amyloid angiopathy and hypertensive etiologiesin the differential.Preliminary Report Dictated by Resident: Lucho Bridges MD., have reviewed this study and agree with theabove report. [facility] GLUCOSE (AUTOMATED)2021-01-09 12:46:12 Test Item Value Reference Range Interpretation Comments POCT GLU (test code = 9405343132) 108 mg/dL 70-110 Lab Interpretation (test code = Normal 31327-1) [facility] [id number] 11:12:35 Test Item Value Reference Range Interpretation Comments FREE T4 (test code = See_Comment [Autom ated message] 2833077532) The system etrigg generated this result transmitted ref erence range: 0.78 - 2 .20 ng/dL:. The ref erence range was not u sed to interpret this result as normal/abnor mal. Lab Interpretation (test Normal code = 02328-1) [facility] METABOLIC PANEL (NA, K, CL, CO2, GLUCOSE, BUN, CREATININE, CA)2021-01-09 10:58:35 Test Item Value Reference Range Interpretation Comments NA (test code = 140 mmol/L 135-145 6753600883) K (test code = 4.5 mmol/L 3.5-5.0 4526833178) CL (test code = 100 mmol/L 98-108 6348604451) CO2 TOTAL (test code = 33 mmol/L 23-31 H 9369771475) AGAP (test code = 2-16 3764906457) BUN (test code = 15 mg/dL 7-23 2231433852) GLUCOSE (test code = 102 mg/dL 70-110 8866469086) CREATININE (test code = 0.89 mg/dL 0.60-1.25 6991427483) CALCIUM (test code = 9.4 mg/dL 8.6-10.6 4994225291) eGFR (test code = mL/min/1.73m2 8815666372) NAVI (test code = NAVI) Association of Glomerular Filtration Rate (GFR) and Staging of Kidney Disease* + --+ --+ ------+| GFR (mL/min/1.73 m2) ?| With Kidney Damage ?| ?Without Kidney Damage+ --------+ --------+ +| ?>90 ?| ?Stage one ?| ? Normal ?+ ---+ ---+ -------+| ?60-89 ?| ?Stage two ?| ? Decreased GFR ? + --+ --+ ------+| ?30-59 ?| ?Stage three ?| ? Stage three ? + --+ --+ ------+| ?15-29 ?| ?Stage four ? | ? Stage four ?+ ---+ ---+ -------+| ?<15 (or dialysis) ? ?| ?Stage five ? | ? Stage five ?+ ---+ ---+ -------+ *Each stage assumes the associated GFR level has been in effect for at least three months. ?Stages 1 to 5, with or without kidney disease, indicate chronic kidney disease. Notes: Determination of stages one and two (with eGFR >59mL/min/1.73 m2) requires estimation of kidney damage for at least three months as defined by structural or functional abnormalities of the kidney, manifested by either:Pathological abnormalities or Markers of kidney damage (including abnormalities in the composition of the blood or urine or abnormalities in imaging tests). Lab Interpretation Abnormal (test code = 25512-1) [facility] [id number] 08:53:41 Test Item Value Reference Range Interpretation Comments FREE T3 (test code = 3836337374) 3.88 pg/mL 2.77-5.27 Lab Interpretation (test code = Normal 11458-5) [facility] HospitalPROTHROMBIN TIME / [id number] 08:52:45 Test Item Value Reference Range Interpretation Comments PROTIME PATIENT (test See_Comment H [Auto mated message] code = 5964-2) The system Quovo generated this result transmitted ref erence range: 10.1 - 1 2.6 Seconds. The reference range was not used to int erpret this result as normal/abnormal . INR (test code = 6301-6) Nor mal INR <1.1; Warfarin Therap eutic range 2.0 to 3. 0 or 2.5 to 3.5, dep ending upon the indica tions. Lab Interpretation (test Abnormal code = 82131-1) [facility] HospitalACTIVATED PARTIAL THRMPLAS [id number] 08:52:45 Test Item Value Reference Range Interpretation Comments APTT Patient (test code See_Comment H [Au tomated message] = 5683-2) The system nodilaic h generated this result transmitted ref erence range: 26 - 36 Seconds. The reference range was not used to int erpret this result as normal/abnormal . Lab Interpretation (test Abnormal code = 88893-4) [facility] HospitalCBC WITH [id number] 08:06:38 Test Item Value Reference Range Interpretation Comments WBC (test code = See_Comment [Automated 7306-2) message] The sy stem which generated this result transmitted reference range : 4.20 - 10.70 10*3/?L. The reference range was not used to interpret this result as normal/abnormal . RBC (test code = See_Comment [Automated 989-8) message] The sy stem which generated this result transmitted reference range : 4.26 - 5.52 10*6/?L. The reference range was not used to interpret this result as normal/abnormal . HGB (test code = 14.1 g/dL 12.2-16.4 718-7) HCT (test code = 44.3 % 38.4-49.3 4544-3) MCV (test code = 81.7 fL 81.7-95.6 787-2) MCH (test code = 26.0 pg 26.1-32.7 L 785-6) MCHC (test code = 31.8 g/dL 31.2-35.0 786-4) RDW-SD (test code = 43.8 fL 38.5-51.6 65449-4) RDW-CV (test code = 15.1 % 12.1-15.4 788-0) PLT (test code = See_Comment [Automated 777-3) message] The sy stem which generated this result transmitted reference range : 150 - 328 10*3/ ?L. The reference r katerine was not used to interpret this result as normal/abnormal . MPV (test code = 9.5 fL 9.8-13.0 L 14801-1) NRBC/100 WBC (test See_Comment [Automat ed code = 8152080460) message] The system which generated this result transmitted reference range : 0.0 - 10.0 /100 WBCs. The refer ence range was not u sed to interpret th is result as normal/abnormal . NRBC x10^3 (test code <0.01 See_Comment [Auto mated = 5267024100) message] The s ystem which generated this result transmitted reference range : 10*3/?L. The reference range was not used to interpret this result as normal/abnormal . GRAN MAT (NEUT) % 73.1 % (test code = 770-8) IMM GRAN % (test code 0.30 % = 7972639913) LYMPH % (test code = 14.0 % 736-9) MONO % (test code = 10.7 % 5905-5) EOS % (test code = 1.1 % 713-8) BASO % (test code = 0.8 % 706-2) GRAN MAT x10^3(ANC) 5.76 10*3/uL 1.99-6.95 (test code = 0062009290) IMM GRAN x10^3 (test <0.03 0.00-0.06 code = 9255853030) LYMPH x10^3 (test code 1.10 10*3/uL 1.09-3.23 = 731-0) MONO x10^3 (test code 0.84 10*3/uL 0.36-1.02 = 742-7) EOS x10^3 (test code = 0.09 10*3/uL 0.06-0.53 711-2) BASO x10^3 (test code 0.06 10*3/uL 0.01-0.09 = 704-7) Lab Interpretation Abnormal (test code = 13792-6) [facility] HospitalPOCT GLUCOSE (AUTOMATED)2021-01-09 01:57:48 Test Item Value Reference Range Interpretation Comments POCT GLU (test code = 4707426778) 90 mg/dL 70-110 Lab Interpretation (test code = Normal 61789-1) [facility] HospitalGLYCOSYLATED HEMOGLOBIN (A1C)2021-01-09 01:36:48 Test Item Value Reference Range Interpretation Comments HGB A1C (test code = 8.6 % 4.0-5.7 H 4548-4) NAVI (test code = NAVI) Reference RangesNormal: <5.7%Prediabetes: 5.7 - 6.4%Diabetes: > 6.5% Lab Interpretation (test Abnormal code = 08661-5) [facility] HospitalTHYROID STIMULATING [id number] 00:20:20 Test Item Value Reference Range Interpretation Comments TSH (test code = <0.02 See_Comment L Biotin has been 6878685116) reported to cau se a negative bias, interpret resul ts relative to pat valeri's use of biotin. [Automated mess age] The system etrigg generated this result transmitted ref erence range: 0.45 - 4 .70 mIU/L. The refe rence range was not u sed to interpret this result as normal/abnor mal. Lab Interpretation (test Abnormal code = 41548-1) [facility] HospitalURINALYSIS2021-06-24 23:25:30 Test Item Value Reference Range Interpretation Comments APPEARANCE (test code = Hazy Clear A 1262631565) COLOR (test code = Straw Yellow A 8096165195) PH (test code = 4.8-8.0 8997095122) SP GRAVITY (test code = 1.003-1.030 9922120380) GLU U QUAL (test code = Normal Normal 6126154902) BLOOD (test code = Negative Negative 7355935831) KETONES (test code = Negative Negative 1294436733) PROTEIN (test code = Negative Negative 2887-8) UROBILIN (test code = Normal Normal 9133324295) BILIRUBIN (test code = Negative Negative 8791018802) NITRITE (test code = Negative Negative 2123787065) LEUK AARON (test code = Negative Negative 3996242070) RBC/HPF (test code = See_Comment [Autom ated message] 5043360712) The system etrigg generated this result transmitted ref erence range: 0 - 3 HP F. The reference range was not used to int erpret this result as normal/abnormal . WBC/HPF (test code = See_Comment [Autom ated message] 8298859282) The system etrigg generated this result transmitted ref erence range: 0 - 5 HP F. The reference range was not used to int erpret this result as normal/abnormal . BACTERIA (test code = Negative Negative 4190384869) Lab Interpretation (test Abnormal code = 97807-7) [facility] HospitalDRUG SCREEN PANEL 2 [id number] 23:23:43 Test Item Value Reference Range Interpretation Comments AMPHET (test code = Negative Negative 3808365984) TONIE U (test code = Negative Negative 8494283179) BENZO U (test code = Negative Negative 7966832305) Cocaine Metabolite (test Negative Negative code = 2144290490) METHADONE (test code = Negative Negative 3021451556) OPIATES (test code = Negative Negative 7965890281) PCP (test code = Negative Negative 1305973462) THC (test code = Negative Negative 7655716103) NAVI (test code = NAVI) Urine Drug Cutoff Ranges Cocaine: ? 150 ng/mLBenzodiazepines: ? ? 200 ng/mLMethadone: ? 300 ng/mLAmphetamine: ? 1,000 ng/mLOpiates: ? 300 ng/mLCannabinoids: ?50 ng/mLPhencyclidine: ? ? ? 25 ng/mLBarbiturates: ?200 ng/mL The results are to be used only for medical (i.e., treatment) purposes. Unconfirmed screening results must not be used for non-medical purposes (e.g., employment testing, legal testing). Lab Interpretation (test Normal code = 59726-6) [facility] Hospital[facility] (27549)(TOTAL CHOLESTEROL, TRIGLYCERIDES, HDL)2021-01-08 22:10:58 Test Item Value Reference Range Interpretation Comments CHOL (test code = 139 mg/dL 120-200 4780241099) HDL (test code = 35 mg/dL >40 L 0502058273) HDLC RATIO (test code = See_Comment [Au tomated message] [id number]) The system etrigg generated this result transmit shanta reference range : <=5.0. The refe rence range was not u sed to interpret th is result as normal/abnormal . TRIG (test code = 165 mg/dL 30-170 8482513994) LDL CHOL (test code = 71 mg/dL See_Comment [Auto mated message] 55535-7) The system etrigg generated this result transmit shanta reference range : <=160. The refe rence range was not u sed to interpret th is result as normal/abnormal . VLDL (test code = 33 mg/dL 5-60 7300863599) Lab Interpretation (test Abnormal code = 12487-7) [facility] GLUCOSE (AUTOMATED)2021-01-08 21:37:29 Test Item Value Reference Range Interpretation Comments POCT GLU (test code = 9441755317) 179 mg/dL 70-110 H Lab Interpretation (test code = Abnormal 29519-5) [facility] ACUTE STROKE HEAD WO [id number] 20:25:08 No acute intracranial findings. A small meningioma is seen overlying the left frontal lobe. No underlyingparenchymal changes are seen. Preliminary Report Dictated by Resident: Usman Alex I, Zak England MD., have reviewed this study and agree with the abovereport.CT STROKE HEAD WO CONTRAST HISTORY: 65 years-old Male; Neuro deficit, acute, stroke suspected, ataxia. COMPARISON: None. TECHNIQUE: Axial CT of the head was performed. Coronal and sagittalreformatted images were generated. FINDINGS: The ventricles and cerebral sulci are normal in caliber and configuration.No hydrocephalus, midline shift or pathological extra-axial fluidcollection is present. The basal cisterns are unremarkable. There is no acute intracranial hemorrhage or significant mass effect.Scattered periventricular hypodensities are nonspecific, but likelyrepresent sequelae of microvascular ischemic disease. The simon-white matterdifferentiation is preserved. A partially calcified meningioma is seen overlying the leftfrontal lobe,measuring 1.2 cm (2:19). No underlying parenchymal changes are seen. The ASPECTS score is estimated to be 10. The mastoid air cells and paranasal air sinuses are clear. [facility], Radiant Results Inft User - 01/08/2021 3:[address] STROKE HEAD WO CONTRASTHISTORY: 65 years-old Male; Neuro deficit, acute, stroke suspected, ataxia.COMPARISON: None.TECHNIQUE: Axial CT of the head was performed. Coronal and sagittalreformatted imageswere generated.FINDINGS:The ventricles and cerebral sulci are normal in caliber and configuration.Nohydrocephalus, midline shift or pathological extra-axial fluidcollection is present. The basal cisterns are unremarkable.There is no acute intracranial hemorrhage or significant mass effect.Scattered pe riventricular hypodensities are nonspecific, but likelyrepresent sequelae of microvascular ischemic disease. The simon-white matterdifferentiation is preserved.A partially calcified meningioma is seen overlying the left frontal lobe,measuring 1.2 cm (2:19). No underlying parenchymal changes are seen.The ASPECTS score is estimated to be 10.The mastoid air cells and paranasal air sinuses are clear. IMPRESSIONNo acute intracranial findings. A small meningioma is seen overlying the left frontal lobe. No underlyingparenchymal changes are seen.Preliminary Report Dictated by Resident: Zak Li MD., have reviewed this study and agree with the abovereport. [facility]2021-[facility] 20:15:38 Test Item Value Reference Range Interpretation Comments MAGNESIUM (test code = 9718487165) 1.8 mg/dL 1.7-2.4 Lab Interpretation (test code = Normal 24955-4) [facility] ANG[facility] [id number] 20:02:27 Severe stenosis is identified at the origin of the right vertebral arterywith nonvisualization of the right intracranial vertebral artery. Thesefindings would indicate occlusion or very high-grade stenosis at thesesegments. The remaining right vertebral artery demonstrates contrastopacification. Severe narrowing of the right common carotid artery at its origin withnoncalcified atherosclerotic disease. The stenosis at this site is close to80% and consistent with flow limitation. Moderate to severe narrowing of the left posterior cerebral artery seen inits P2 segment. This is greater than 50% and concerning for flowlimitation. No other flow-limiting stenosis is identified in the head and neckarteries. Jbfe-do-quyfmudi multifocal atherosclerotic disease is seen, withsome vessels approaching 50% narrowing. These are discussed in the body thereport. The findings of this study have been discussed with and acknowledged by over the phone on 01/09/2020 at 13:20 ?with readback. Preliminary Report Dictated by Resident: Zak Rosario MD., have reviewed this study and agree with the abovereport.CT STROKE ANGIOGRAM NECK, CT STROKE ANGIOGRAM HEAD HISTORY: 65 years-old; Male; Acute Stroke Rad: please obtain POCTcreatinine prior to CTA head/neck TECHNIQUE: CTA of the head and neck with coronal, sagittal reformats, andMIPS reconstruction was performed. COMPARISON: ?None. FINDINGS: CTA NECK: There is a three-vessel aortic arch. The vessels originating from the archare patent. Zdtn-cc-tbveykhi atherosclerotic disease is seen in this regionwhich is a mixture of calcified andnoncalcified atherosclerotic disease. Scattered mild atherosclerotic disease is seen in the left subclavianartery with moderate narrowing of the right distal subclavian artery isseen. No flow-limiting s tenosis is identified. Moderate to severe narrowing of the right common carotid artery shortlyafter its origin (6:178). This is close to 80% and meets criteria for flowlimitation. The common carotid artery distal to this demonstrates mildmultifocal atherosclerotic disease without other significant stenosis. Mild calcified atherosclerotic disease is seen in the right carotidbifurcation with less than 50% stenosis. Mild multifocal atherosclerotic disease is seen of the left common carotidartery, most conspicuous at its origin. The stenosis is less than 50% andnot flow-limiting. Mild atherosclerotic disease is identified in the leftcarotid bifurcation. This is less than 50% are not flow-limiting. The leftcervical ICA is patent. The arteries originate from the subclavian arteries bilaterally. Moderateatherosclerotic disease is suspected in the left vertebral artery originwhich is borderline for flowlimitation. The left vertebral artery isdominant. Severe atherosclerotic disease is seen at the origin of the right vertebralartery with partial nonvisualization. Distal to this point the rightsubclavian artery demonstrates contrast opacification. No other cervicalstenosis is identified in the right vertebral artery. ? CTA HEAD: Mild to moderate calcified atherosclerotic disease is seen in the cavernousand supraclinoid ICAs. The stenosis is more prominent in the supraclinoidsegments bilaterally, where it is close to 50% and borderline for flowlimitation. An anterior communicating artery is seen. The NIKOLAY and MCAbranches are unremarkable. Incidentally noted is a meningioma overlying theleft frontallobe measuring 1.4 cm (3:56). No sizable posterior communicating arteries identified. There is severestenosis of the left CURB MACHINE OPERATOR in its P2 segment. The distal branches are patent. The right CURB MACHINE OPERATOR and basilar artery are normal in caliber. There is nonvisualization of the right intracranial vertebral artery themajority of its course with small amount of opacification in its distalsegment, likely due to retrograde filling. The left intracranial vertebralartery demonstrates moderate atherosclerotic disease without flow-limitingstenosis. Bilateral AICA/PICA variants are suspected. The intracranialvenous sinuses are grossly patent. [facility], Radiant Results Inft User - 01/08/2021 3:[address] STROKE ANGIOGRAM NECK, CT STROKE ANGIOGRAM HEADHISTORY: 65 years-old; Male; Acute Stroke Rad: please obtain POCTcreatinine prior to CTA head/neckTECHNIQUE: CTA of the head and neck with coronal, sagittal reformats, andMIPS reconstruction was performed.COMPARISON: None.FINDINGS:CTA NECK:There is a three-vessel aortic arch. The vessels originating from the arc hare patent. Wpmt-bp-smdwwcoo atherosclerotic disease is seen in this regionwhich is a mixture of calcified and noncalcified atherosclerotic disease.Scattered mild atherosclerotic disease is seen in the left subclavianartery with moderate narrowing of the right distal subclavian artery isseen. No flow-limiting stenosis is identified.Moderate to severe narrowing of the right common carotid artery shortlyafter its origin (6:178). This is close to 80% and meets criteria for flowlimitation. The common carotid artery distal to this demonstrates mildmultifocal atherosclerotic disease without other significant stenosis.Mild calcified atherosclerotic disease is seen in the right carotidbifurcation with less than 50% stenosis.Mild multifocal atherosclerotic disease is seen of the left common carotidartery, most conspicuous at its origin. The stenosis is less than 50% andnot flow-limiting. Mild atherosclerotic disease is identified in the leftcarotid bifurcation. This is less than 50% are not flow-limiting. The leftcervical ICA is patent.The arteries originate from the subclavian arteries bilaterally. Moderateatherosclerotic disease is suspected in the left vertebral artery originwhich is borderline for flow limitation. The left vertebral artery isdominant.Severe atherosclerotic disease is seen at theorigin of the right vertebralartery with partial nonvisualization. Distal to this point the rightsubclavian artery demonstrates contrast opacification. No other cervicalstenosis is identified in the right vertebral artery. CTA HEAD: Mild to moderate calcified atherosclerotic disease is seen in the cavernousand supraclinoid ICAs. The stenosis is more prominent in the supraclinoidsegments bilaterally,where it is close to 50% and borderline for flowlimitation. An anterior communicating artery is seen. The NIKOLAY and MCAbranches are unremarkable. Incidentally noted is a meningioma overlying theleft frontal lobe measuring 1.4 cm (3:56).No sizable posterior communicating arteries identified. There is severestenosis of the left CURB MACHINE OPERATOR in its P2 segment. The distal branches are patent.The right CURB MACHINE OPERATOR and basilar artery are normal in caliber.There is nonvisualization of the right intracranial vertebral artery t hemajority of its course with small amount of opacification in its distalsegment, likely due to retrograde filling. The left intracranial vertebralartery demonstrates moderate atherosclerotic disease without flow- limitingstenosis. Bilateral AICA/PICA variants are suspected. The intracranialvenous sinuses are grossly patent.IMPRESSIONSevere stenosis is identified at the origin of the right vertebral arterywith nonvisualization of the right intracranial vertebral artery. Thesefindings would indicate occlusion or very high-grade stenosis at thesesegments. The remaining right vertebral artery demonstrates contrastopacification.Severe narrowing of the right common carotid artery at its origin withnoncalcified atherosclerotic disease. The stenosis at this site is close to80% and consistent with flow kaufman itation.Moderate to severe narrowing of the left posterior cerebral artery seen inits P2 segment. This is greater than 50% and concerning for flowlimitation.No other flow-limiting stenosis is identified in the head and neckarteries. Wtnl-zc-sfvhaqjs multifocal atherosclerotic disease is seen, withsomevessels approaching 50% narrowing. These are discussed in the body thereport.The findings of this study have been discussed with and acknowledged by over the phone on 01/09/2020 at 13:20 withreadback.Preliminary Report Dictated by Resident: Zak Li MD., have reviewed this study and agree with the abovereport.[facility] [id number] 20:02:27 Severe stenosis is identified at the origin of the right vertebral arterywith nonvisualization of the right intracranial vertebral artery. Thesefindings would indicate occlusion or very high-grade sten osis at thesesegments. The remaining right vertebral artery demonstrates contrastopacification. Severe narrowing of the right common carotid artery at its origin withnoncalcified atherosclerotic disease. The stenosis at this site is close to80% and consistent with flow limitation. Moderate to severe narrowing of the left posterior cerebral artery seen inits P2 segment. This is greater than 50% and concerning for flowlimitation. No other flow-limiting stenosis is identified in the head and neckarteries. Skdi-pa-olhwsxke multifocal atherosclerotic disease is seen, withsome vessels approaching 50% narrowing. These are discussed in the body thereport. The findings of this study have been discussed with and acknowledged by over the phone on 01/09/2020 at 13:20 ?with readback. Preliminary Report Dictated by Resident: Zak Rosario MD., have reviewed this study and agree with the abovereport.CT STROKE ANGIOGRAM NECK, CT STROKE ANGIOGRAM HEAD HISTORY: 65 years-old; Male; Acute Stroke Rad: please obtain POCTcreatinine prior to CTA head/neck TECHNIQUE: CTA of the head and neck with coronal, sagittal reformats, andMIPS reconstruction was performed. COMPARISON: ?None. FINDINGS: CTA NECK: There is a three-vessel aortic arch. The vessels originating from the archare patent. Frkt-pv-zcgrlmbi atherosclerotic disease is seen in this regionwhich is a mixture of calcified andnoncalcified atherosclerotic disease. Scattered mild atherosclerotic disease is seen in the left subclavianartery with moderate narrowing of the right distal subclavian artery isseen. No flow-limiting s tenosis is identified. Moderate to severe narrowing of the right common carotid artery shortlyafter its origin (6:178). This is close to 80% and meets criteria for flowlimitation. The common carotid artery distal to this demonstrates mildmultifocal atherosclerotic disease without other significant stenosis. Mild calcified atherosclerotic disease is seen in the right carotidbifurcation with less than 50% stenosis. Mild multifocal atherosclerotic disease is seen of the left common carotidartery, most conspicuous at its origin. The stenosis is less than 50% andnot flow-limiting. Mild atherosclerotic disease is identified in the leftcarotid bifurcation. This is less than 50% are not flow-limiting. The leftcervical ICA is patent. The arteries originate from the subclavian arteries bilaterally. Moderateatherosclerotic disease is suspected in the left vertebral artery originwhich is borderline for flowlimitation. The left vertebral artery isdominant. Severe atherosclerotic disease is seen at the origin of the right vertebralartery with partial nonvisualization. Distal to this point the rightsubclavian artery demonstrates contrast opacification. No other cervicalstenosis is identified in the right vertebral artery. ? CTA HEAD: Mild to moderate calcified atherosclerotic disease is seen in the cavernousand supraclinoid ICAs. The stenosis is more prominent in the supraclinoidsegments bilaterally, where it is close to 50% and borderline for flowlimitation. An anterior communicating artery is seen. The NIKOLAY and MCAbranches are unremarkable. Incidentally noted is a meningioma overlying theleft frontallobe measuring 1.4 cm (3:56). No sizable posterior communicating arteries identified. There is severestenosis of the left CURB MACHINE OPERATOR in its P2 segment. The distal branches are patent. The right CURB MACHINE OPERATOR and basilar artery are normal in caliber. There is nonvisualization of the right intracranial vertebral artery themajority of its course with small amount of opacification in its distalsegment, likely due to retrograde filling. The left intracranial vertebralartery demonstrates moderate atherosclerotic disease without flow-limitingstenosis. Bilateral AICA/PICA variants are suspected. The intracranialvenous sinuses are grossly patent. [facility], Radiant Results Inft User - 01/08/2021 3:[address] STROKE ANGIOGRAM NECK, CT STROKE ANGIOGRAM HEADHISTORY: 65 years-old; Male; Acute Stroke Rad: please obtain POCTcreatinine prior to CTA head/neckTECHNIQUE: CTA of the head and neck with coronal, sagittal reformats, andMIPS reconstruction was performed.COMPARISON: None.FINDINGS:CTA NECK:There is a three-vessel aortic arch. The vessels originating from the arc hare patent. Ixps-dm-fslcgcls atherosclerotic disease is seen in this regionwhich is a mixture of calcified and noncalcified atherosclerotic disease.Scattered mild atherosclerotic disease is seen in the left subclavianartery with moderate narrowing of the right distal subclavian artery isseen. No flow-limiting stenosis is identified.Moderate to severe narrowing of the right common carotid artery shortlyafter its origin (6:178). This is close to 80% and meets criteria for flowlimitation. The common carotid artery distal to this demonstrates mildmultifocal atherosclerotic disease without other significant stenosis.Mild calcified atherosclerotic disease is seen in the right carotidbifurcation with less than 50% stenosis.Mild multifocal atherosclerotic disease is seen of the left common carotidartery, most conspicuous at its origin. The stenosis is less than 50% andnot flow-limiting. Mild atherosclerotic disease is identified in the leftcarotid bifurcation. This is less than 50% are not flow-limiting. The leftcervical ICA is patent.The arteries originate from the subclavian arteries bilaterally. Moderateatherosclerotic disease is suspected in the left vertebral artery originwhich is borderline for flow limitation. The left vertebral artery isdominant.Severe atherosclerotic disease is seen at theorigin of the right vertebralartery with partial nonvisualization. Distal to this point the rightsubclavian artery demonstrates contrast opacification. No other cervicalstenosis is identified in the right vertebral artery. CTA HEAD: Mild to moderate calcified atherosclerotic disease is seen in the cavernousand supraclinoid ICAs. The stenosis is more prominent in the supraclinoidsegments bilaterally,where it is close to 50% and borderline for flowlimitation. An anterior communicating artery is seen. The NIKOLAY and MCAbranches are unremarkable. Incidentally noted is a meningioma overlying theleft frontal lobe measuring 1.4 cm (3:56).No sizable posterior communicating arteries identified. There is severestenosis of the left CURB MACHINE OPERATOR in its P2 segment. The distal branches are patent.The right CURB MACHINE OPERATOR and basilar artery are normal in caliber.There is nonvisualization of the right intracranial vertebral artery t hemajority of its course with small amount of opacification in its distalsegment, likely due to retrograde filling. The left intracranial vertebralartery demonstrates moderate atherosclerotic disease without flow- limitingstenosis. Bilateral AICA/PICA variants are suspected. The intracranialvenous sinuses are grossly patent.IMPRESSIONSevere stenosis is identified at the origin of the right vertebral arterywith nonvisualization of the right intracranial vertebral artery. Thesefindings would indicate occlusion or very high-grade stenosis at thesesegments. The remaining right vertebral artery demonstrates contrastopacification.Severe narrowing of the right common carotid artery at its origin withnoncalcified atherosclerotic disease. The stenosis at this site is close to80% and consistent with flow kaufman itation.Moderate to severe narrowing of the left posterior cerebral artery seen inits P2 segment. This is greater than 50% and concerning for flowlimitation.No other flow-limiting stenosis is identified in the head and neckarteries. Ieav-qr-xcfkafzw multifocal atherosclerotic disease is seen, withsomevessels approaching 50% narrowing. These are discussed in the body thereport.The findings of this study have been discussed with and acknowledged by over the phone on 01/09/2020 at 13:20 withreadback.Preliminary Report Dictated by Resident: Zak Li MD., have reviewed this study and agree with the abovereport.[facility] HospitalCOVID[facility] (ID NOW RAPID TESTING)2021-01-08 18:33:57 Test Item Value Reference Range Interpretation Comments SARS-CoV-2 Rapid ID NOW Not Detected Not Detected (test code = 13250-3) NAVI (test code = NAVI) ID NOW COVID-19 Assay is an isothermal nucleic acid amplification test intended for the qualitative detection of nucleic acid from SARS-CoV-2 viral RNA in nasopharyngeal (BINDER FOLDER OPERATOR) specimens. It is used under Emergency Use Authorization (EUA) by FDA. The limit of detection (LOD) of the assay is 125 Genome Equivalents/mL. A positive result is indicative of the presence of SARS-CoV-2 RNA. ?Clinical correlation with patient history and other diagnostic information is necessary to determine patient infection status. A negative (Not Detected) result does not preclude SARS-CoV-2 infection. In patients with clinical symptoms and other tests that are consistent with SARS-CoV-2 infection, negative results should be treated as presumptive negative and a new specimen should be tested with alternative PCR molecular test. Invalid: Please collect a new specimen for repeat patient testing if clinically indicated. Lab Interpretation Normal (test code = 29274-5) [facility] HospitalXR [facility] 1 [id number] 18:16:58 HISTORY: Stroke. TECHNIQUE: Portable AP view of the chest is obtained. No prior chest studyavailablefor comparison. FINDINGS: No acute pneumonia. No pneumothorax or pleural effusion orpulmonary congestion detected. Cardiac size is within upper normal limits.Questionable resection of posterior portionright first rib and bony bridgebetween mid segment of right first and second ribs. CONCLUSIONS: No signs of acute cardiopulmonary disease.[facility], Radiant Results Inft User - 01/08/2021 1:18 PM CDT HISTORY: Stroke.TECHNIQUE: Portable AP view ofthe chest is obtained. No prior chest studyavailable for comparison.FINDINGS: No acute pneumonia. Nopneumothorax or pleural effusion orpulmonary congestion detected. Cardiac size is within upper normal limits.Questionable resection of posterior portion right first rib and bony bridgebetween mid segment of right first and second ribs.CONCLUSIONS: No signs of acute cardiopulmonary disease.[facility] HospitalTroponin I - Code [id number] 18:03:34 Test Item Value Reference Interpretation Comments Range TROPONIN I (test 0.004 ng/mL See_Comment [Automated code = [id number]) message] The system which generated this result transmitted reference range : <=0.034. The reference range was not used to interpret this result as normal/abnormal . NAVI (test code = Reference (Normal) NAVI) Range (defined by the 99th percentile reference limit): <= 0.034 ng/mL Note: Cardiac troponin begins to rise 3-4 hours after the onset of ischemia. Repeat in 4-6 hours if the sample was drawn within 3-4 hours of the onset of the symptom and found normal. Diagnosis of myocardial injury is made with acute changes in cTn concentrations with at least one serial sample above the 99th percentile upper reference limit (URL), taken together with the patient's clinical presentation. Biotin has been reported to cause a negative bias, interpret results relative to patient's use of biotin. Lab Interpretation Normal (test code = 79960-8) [facility] - Code [id number] 17:53:11 Test Item Value Reference Range Interpretation Comments APTT Patient (test See_Comment [Automat ed code = 3173-2) message] The system which generated this result transmitted reference range : 23 - 38 Seconds . The reference range was not used to interpr et this result as normal/abnormal . NAVI (test code = NAVI) The RUST patient population mean normal value for aPTT is 30 seconds. Lab Interpretation Normal (test code = 54064-4) [facility] (NA, K, CL, CO2, Glucose, BUN, Creatinine, CA) - Code [id number] 17:52:11 Test Item Value Reference Range Interpretation Comments NA (test code = 136 mmol/L 135-145 6248805782) K (test code = 3.9 mmol/L 3.5-5.0 1932197858) CL (test code = 98 mmol/L 98-108 6702416029) CO2 TOTAL (test code = 26 mmol/L 23-31 9220689302) AGAP (test code = 2-16 1813964308) BUN (test code = 17 mg/dL 7-23 9979157913) GLUCOSE (test code = 178 mg/dL 70-110 H 1273444812) CREATININE (test code = 0.84 mg/dL 0.60-1.25 4039211533) CALCIUM (test code = 9.9 mg/dL 8.6-10.6 9886896905) eGFR (test code = mL/min/1.73m2 1091023677) NAVI (test code = NAVI) Association of Glomerular Filtration Rate (GFR) and Staging of Kidney Disease* + --+ --+ ------+| GFR (mL/min/1.73 m2) ?| With Kidney Damage ?| ?Without Kidney Damage+ --------+ --------+ +| ?>90 ?| ?Stage one ?| ? Normal ?+ ---+ ---+ -------+| ?60-89 ?| ?Stage two ?| ? Decreased GFR ? + --+ --+ ------+| ?30-59 ?| ?Stage three ?| ? Stage three ? + --+ --+ ------+| ?15-29 ?| ?Stage four ? | ? Stage four ?+ ---+ ---+ -------+| ?<15 (or dialysis) ? ?| ?Stage five ? | ? Stage five ?+ ---+ ---+ -------+ *Each stage assumes the associated GFR level has been in effect for at least three months. ?Stages 1 to 5, with or without kidney disease, indicate chronic kidney disease. Notes: Determination of stages one and two (with eGFR >59mL/min/1.73 m2) requires estimation of kidney damage for at least three months as defined by structural or functional abnormalities of the kidney, manifested by either:Pathological abnormalities or Markers of kidney damage (including abnormalities in the composition of the blood or urine or abnormalities in imaging tests). Lab Interpretation Abnormal (test code = 45232-6) [facility] / [facility]R - Code [id number] 17:51:11 Test Item Value Reference Range Interpretation Comments PROTIME PATIENT (test See_Comment H [Auto mated message] code = 5964-2) The system [employer] generated this result transmitted ref erence range: 12.0 - 1 4.7 Seconds. The reference range was not used to int erpret this result as normal/abnormal . INR (test code = 6301-6) Nor mal INR <1.1; Warfarin Therap eutic range 2.0 to 3. 0 or 2.5 to 3.5, dep ending upon the indica tions. Lab Interpretation (test Abnormal code = 15949-3) [facility] without [facility] - Code [id number] 17:43:29 Test Item Value Reference Range Interpretation Comments WBC (test code = 6690-2) See_Comment [A utomated message] The system etrigg generated this result transmit shanta reference range : 4.20 - 10.70 10*3/?L. The reference range was not used to interpret this result as normal/abnormal . RBC (test code = 789-8) See_Comment [Au tomated message] The system etrigg generated this result transmit shanta reference range : 4.26 - 5.52 10* 6/?L. The reference r katerine was not used to interpret this result as normal/abnormal . HGB (test code = 718-7) 14.0 g/dL 12.2-16.4 HCT (test code = 4544-3) 43.7 % 38.4-49.3 MCH (test code = 785-6) 26.2 pg 26.1-32.7 MCV (test code = 787-2) 81.7 fL 81.7-95.6 MCHC (test code = 786-4) 32.0 g/dL 31.2-35.0 PLT (test code = 777-3) See_Comment [Au tomated message] The system etrigg generated this result transmit shanta reference range : 150 - 328 10*3/?L. The reference range was not used to interpret this result as normal/abnormal . MPV (test code = 9.0 fL 9.8-13.0 L 25714-3) RDW-CV (test code = 14.8 % 12.1-15.4 788-0) RDW-SD (test code = 42.9 fL 38.5-51.6 02705-1) NRBC x10^3 (test code = <0.01 See_Comment [Au tomated message] [id number]) The system etrigg generated this result transmit shanta reference range : 10*3/?L. The reference range was not used to interpret this result as normal/abnormal . NRBC/100 WBC (test code See_Comment [Au tomated message] = [id number]) The system Yovigo generated this result transmit shanta reference range : 0.0 - 10.0 /100 WBC s. The reference r katerine was not used to interpret this result as normal/abnormal . IPF % (test code = 5653298782) Lab Interpretation (test Abnormal code = 17532-0) [facility])2021-01-08 17:41:41 Test Item Value Reference Range Interpretation Comments POCT GLU (test code = 7398468036) 170 mg/dL 70-110 H Lab Interpretation (test code = Abnormal 51881-7) [facility]"
--- NOTE | 2021-09-03 09:12 | RAD REPORT ---
EXAM DESCRIPTION: CT - Ct Stroke Brain Wo Cont - 09/03/2021 9:03 am CLINICAL HISTORY: CONFUSED COMPARISON: Head Brain W/Wo Con dated 11/17/2018; Head Brain W/Wo Con dated 01/21/2017; Iac W And Wo Con t dated 05/30/2020 TECHNIQUE: All CT scans are performed using dose optimization technique as appropriate and may inclu de automated exposure control or mA/KV adjustment according to patient size. FINDINGS: No intracranial hemorrhage, hydrocephalus or extra-axial fluid collection.No areas of brai n edema or evidence of midline shift. Chronic small vessel ischemic changes. The paranasal sinuses and mastoids are clear. The calvarium is intact. Hyperdense mass along the inne r table of the skull of the left parietal calvarium consistent with a meningioma. This is unchanged. IMPRESSION: No acute intracranial abnormality.
[2021-09-03 09:25] LABS: Hematocrit 42.5 % (39.6-49.0); Lymphocytes % 18.1 % (15.3-44.8); MPV 7.4 fL (7.6-11.3); RBC Red Blood Cell Count 5.31 M/uL (4.33-5.43)
[2021-09-03 09:29] LABS: Protime INR 1.45
--- NOTE | 2021-09-03 09:32 | RAD REPORT ---
EXAM DESCRIPTION: RAD - Chest Single View - 09/03/2021 9:26 am CLINICAL HISTORY: SOB COMPARISON: CHEST PA AND LAT 2 VIEW dated 09/15/2015 FINDINGS: Lines: None. Lungs: No evidence of edema or pneumonia. Pleural: No significant pleural effusions or pneumothorax. Cardiac: The heart size is within normal limits. Bones: No acute fractures. Other: IMPRESSION: No acute cardiopulmonary disease.
[2021-09-03] MEDS ORDERED: INSULIN -REGULAR HUMAN 50 UNIT/0.5 ML ML ONE (09:36)
[2021-09-03 09:37] LABS: Potassium 4.3 mmol/L (3.5-5.1)
--- NOTE | 2021-09-03 11:37 | ER ---
Nurse's Notes [facility] Name: Twin Gamez Age: 66 yrs Sex: Male : 1955 Arrival Date: 09/03/2021 Time: 08:52 Bed 3 Private MD: Diagnosis: Altered mental status, unspecified;Idqeeabu-Lganb-dzmei Presentation: 09/03 08:52 Acuity: CHIARA 2 08:52 Ebola Screen: Patient denies exposure to infectious person. Patient denies travel to an Ebola-affected area in the 21 days before illness onset. Risk Assessment: Do you want to hurt yourself or someone else? Patient reports no desire to harm self or others. Onset of symptoms was September 03, 2021. 08:52 Method Of Arrival: EMS: [facility] 08:54 Chief complaint: EMS states: Not feeling like self. Slurred speech noted, but may be ss residual from CVA last year. Upon arrival to ED, pt c/o dizziness and worsening slurred speech. Coronavirus screen: Client denies travel out of the [place] in the last 14 days. An acute neurological deficit is present. The charge nurse has been notified. The patients blood glucose was checked prior to arriving to the hospital and was found to be hyperglycemic. Initial Sepsis Screen: Does the patient meet any 2 criteria? No. Patient's initial sepsis screen is negative. Does the patient have a suspected source of infection? No. Patient's initial sepsis screen is negative. 08:54 Care prior to arrival: VS 155/82 BGL 282. Triage Assessment: 20:35 The onset of the patients symptoms was September 03, 2021 at 08:00. General: Appears in sm5 no apparent distress. 20:36 Neuro: Reports. 5 Stroke Activation: Symptom onset < 3 hours Physician: Stroke Attending; Name: ; Notified At: ; Arrived At: Physician: Chief Stroke Resident; Name: ; Notified At: ; Arrived At: Physician: Stroke Resident; Name: ; Notified At: ; Arrived At: Physician: ED Attending; Name: ; Notified At: ; Arrived At: Physician: ED Resident; Name: ; Notified At: ; Arrived At: Historical: - Allergies: 09:00 No Known Allergies; ss - Home Meds: 09:00 glipizide 10 mg Oral tab [Active]; triamterene-hydrochlorothiazid 37.5-25 mg Oral tab 1 ss tab once daily [Active]; [place] Thyroid 180 mg Oral tab 1 tab once daily [Active]; Metformin 500 mg tablets. 1000 mg in AM and 1500 in PM Oral [Active]; Warfarin 7.5 mg and 3.5 mg Tuesday \\\\ Tuesday Oral [Active]; aspirin 325 mg Oral TbEC 1 tab once daily [Active]; Pepcid 20 mg Oral tab 1 tab once daily [Active]; magnesium oxide 400 mg magnesium Oral tab [Active]; - PMHx: 09:00 Cancer, Lung; Diabetes - NIDDM; Hypertension; Thyroid problem; Diabetes mellitus; CVA; ss - Immunization history:: Adult Immunizations unknown. - Social history:: Smoking status: unknown. Screenin:26 Abuse screen: Denies threats or abuse. Denies injuries from another. Nutritional cb5 screening: No deficits noted. Tuberculosis screening: No symptoms or risk factors identified. 20:35 Fall Risk No fall in past 12 months (0 pts). Secondary diagnosis (15 points) CVA, IV sm5 access (20 points). Ambulatory Aid- None/Bed Rest/Nurse Assist (0 pts). Gait- Weak (10 pts.). Mental Status- Oriented to own ability (0 pts). Total Guillen Fall Scale indicates High Risk Score (45 or more points). Fall prevention measures have been instituted. Side Rails Up X 2 Placed Close to Nursing Station Frequent Obs/Assessments Occuring Family Present and informed to notify staff if the need to leave the bedside. Assessment: 08:52 General: Appears distressed, uncomfortable, obese, well groomed, well developed, cb5 Behavior is anxious, restless, confused. Pain: Denies pain. Neuro: Babinski See NIH scale. Cardiovascular: Heart tones S1 S2 Capillary refill < 3 seconds Pulses are all present. Rhythm is regular. Respiratory: No deficits noted. GI: No deficits noted. : No deficits noted. Derm: Skin is intact, with poor turgor. Musculoskeletal: No deficits noted. 08:57 Reassessment: Code Stroke called. Dr. Lora at bedside. Pt going to CT now. ss 09:20 Patient has been NPO before screening. The patient is alert, and able to follow ss commands. The patient exhibits slurred or garbled speech. Provider notified of the indication for Speech Therapy consult. The patient is exhibiting difficulty speaking. The patient does not exhibit difficulty understanding words. The patient is able to swallow own secretions with no drooling or need for suction. The patient failed the bedside swallow screening. The patient will be kept NPO until cleared by Speech Therapy or Physician. 10:14 The patient did not tolerate 90mL of water. Drooling, immediate coughing, gurgling, or cb5 clearing of the throat was noted. Bedside swallow screening discontinued. Patient kept NPO until cleared by Speech Therapy or Physician. Provider notified of bedside swallow screening results: Norris Lora MD. 11:15 Reassessment: Patient and/or family updated on plan of care and expected duration. Pain cb5 level reassessed. 12:08 General: Hospitalist at bedside with patient and family. cb5 Vital Signs: 08:52 BP 180 / 66; Pulse 97; Resp 20; Temp 98.6; Pulse Ox 98% ; Weight 113.4 kg; Height 5 ft. cb5 9 in. (175.26 cm); Pain 0/10; 09:00 BP 161 / 68; Pulse 93; Resp 20; Pulse Ox 97% ; Pain 0/10; cb5 09:30 BP 164 / 65; Pulse 89; Resp 16; Pulse Ox 98% ; Pain 0/10; cb5 09:45 BP 188 / 7; Pulse 90; Resp 18; Pulse Ox 97% ; Pain 0/10; cb5 10:00 BP 160 / 99; Pulse 88; Resp 18; Pulse Ox 96% ; Pain 0/10; cb5 10:15 BP 128 / 55; Pulse 81; Resp 16; Pulse Ox 97% ; Pain 0/10; cb5 10:30 BP 147 / 65; Pulse 79; Resp 16; Pulse Ox 97% ; Pain 0/10; cb5 11:00 BP 131 / 49; Pulse 76; Resp 16; Pulse Ox 97% ; Pain 0/10; cb5 11:30 BP 133 / 57; Pulse 75; Resp 16; Pulse Ox 98% ; Pain 0/10; cb5 12:00 BP 131 / 96; Pulse 73; Resp 16; Pulse Ox 98% ; Pain 0/10; cb5 19:00 BP 167 / 68; Pulse 73; Resp 18; Pulse Ox 97% on R/A; mk 19:55 BP 156 / 70; Pulse 73; Resp 18; Pulse Ox 98% on R/A; mk 08:52 Body Mass Index 36.92 (113.40 kg, 175.26 cm) cb5 Steven Coma Score: 19:00 Eye Response: spontaneous(4). Verbal Response: oriented(5). Motor Response: obeys mk commands(6). Total: 15. 19:55 Eye Response: spontaneous(4). Verbal Response: oriented(5). Motor Response: obeys mk commands(6). Total: 15. NIH Stroke Scale Scores: 08:52 NIHSS Score: 10 cb5 10:00 NIHSS Score: 6 cb5 ED Course: 08:52 Patient arrived in ED. ds1 08:54 Norris Lora MD is Attending Physician. kdr 09:00 Arm band placed on right wrist. ss 09:03 CT Stroke Brain w/o Contrast In Process Unspecified. EDMS 09:04 Triage completed. ss 09:15 Laura Morales, RN is Primary Nurse. ss 09:21 Basic Metabolic Panel Sent. mh5 09:21 CBC with Diff Sent. mh5 09:21 Protime (+inr) Sent. mh5 09:21 Ptt, Activated Sent. mh5 09:21 Initial lab(s) drawn, by ED staff, sent to lab. EKG done, by ED staff, reviewed by 5 Norris Lora MD. 09:22 Patient has correct armband on for positive identification. Placed in gown. Bed in low mh5 position. Call light in reach. Side rails up X2. Adult w/ patient. Warm blanket given. air sampling and monitoring on. Pulse ox on. NIBP on. 09:24 COVID-19 SARS RT PCR (Document "Date of Onset" if Symptomatic) Sent. mh5 09:24 SARS-COV-2 RT PCR Sent. mh5 09:25 COVID swab sent to lab. mh5 09:26 Stroke CXR 1 View In Process Unspecified. EDMS 09:39 SARS-COV-2 RT PCR Sent. cb5 09:53 initiated transfer to [facility]. bd 09:57 pt denied at [facility] due to no beds at this time. bd 11:36 Raphael Chun MD is Hospitalizing Provider. kdr 19:14 Report given to EBONI Murillo. cb5 19:21 Primary Nurse role handed off by Laura Morales RN mw2 20:34 No provider procedures requiring assistance completed. Patient admitted, IV remains in [address] Administered Medications: 09:35 Drug: Insulin Regular Human 6 units {Co-Signature: vg1 (Janiya Hunt RN).} Route: cb5 IVP; Site: right antecubital; Outcome: 11:36 Decision to Hospitalize by Provider. kdr 20:27 Patient left the ED. mw2 20:35 Admitted to Med/surg accompanied by tech, via stretcher, with chart. [facility] 20:35 Condition: stable 20:35 Instructed on the need for admit. NIH Stroke Scale - NIH Stroke Score Date: 09/03/2021 Time: 08:52 Total Score = 10 1a. Level of Consciousness (LOC) - 0(Alert) 1b. Level of Consciousness (LOC) (Month \\T\\ Age) - 1(One) 1c. LOC Commands (Open \\T\\ Closes Eyes/Gym Supervisor) - 1(One) 2. Best Gaze (Lateral Gaze Paresis) - 0(Normal) 3. Visual Field Loss - 0(No visual loss) 4. Facial Palsy - 1(Minor Paralysis) 5a. Left Arm: Motor (10-second hold) - 2(Drift, some effort against gravity) 5b. Right Arm: Motor (10-second hold) - 0(No drift) 6a. Left Leg: Motor (5-second hold - always test supine) - 2(Drift, some effort against gravity) 6b. Right Leg: Motor (5-second hold - always test supine) - 0(No drift) 7. Limb Ataxia (finger/nose \\T\\ heel/baum - test with eyes open) - 0(Absent) 8. Sensory Loss (pinprick arms/legs/face) - 1(Mild to moderate loss) 9. Best Language: Aphasia (description/naming/reading) - 1(Mild to moderate aphasia) 10. Dysarthria (speech clarity - read or repeat words) - 1(Mild to Moderate) 11. Extinction and Inattention (visual/tactile/auditory/spatial/personal) - 0(No abnormality) Initials: 5 NIH Stroke Scale - NIH Stroke Score Date: 09/03/2021 Time: 10:00 Total Score = 6 1a. Level of Consciousness (LOC) - 0(Alert) 1b. Level of Consciousness (LOC) (Month \\T\\ Age) - 0(Both) 1c. LOC Commands (Open \\T\\ Closes Eyes/Gym Supervisor) - 0(Both) 2. Best Gaze (Lateral Gaze Paresis) - 0(Normal) 3. Visual Field Loss - 0(No visual loss) 4. Facial Palsy - 1(Minor Paralysis) 5a. Left Arm: Motor (10-second hold) - 1(Drift) 5b. Right Arm: Motor (10-second hold) - 0(No drift) 6a. Left Leg: Motor (5-second hold - always test supine) - 1(Drift) 6b. Right Leg: Motor (5-second hold - always test supine) - 0(No drift) 7. Limb Ataxia (finger/nose \\T\\ heel/baum - test with eyes open) - 0(Absent) 8. Sensory Loss (pinprick arms/legs/face) - 1(Mild to moderate loss) 9. Best Language: Aphasia (description/naming/reading) - 1(Mild to moderate aphasia) 10. Dysarthria (speech clarity - read or repeat words) - 1(Mild to Moderate) 11. Extinction and Inattention (visual/tactile/auditory/spatial/personal) - 0(No abnormality) Initials: cb5 Signatures: Dispatcher [employer] Kaylyn Hernandez Kevin, MD MD [facility] Anayeli Man ds1 Miley Dumont RN RN ss Martinez, Maria Crystal Rangel mw2 Lidia eBebe RN RN sm5 Kotarski, Madeline, RN RN mk Boman, Colleen, RN RN cb5 Janiya Hunt RN vg1 Corrections: (The following items were deleted from the chart) 10:19 10:18 VAN Scoring: Arm Drift: cb5 cb5
--- NOTE | 2021-09-03 11:37 | EDPHYS ---
Physician Documentation [facility] Name: Twin Gamez Age: 66 yrs Sex: Male : 1955 Arrival Date: 09/03/2021 Time: 08:52 Bed 3 Private MD: ED Physician Norris Lora HPI: 09/03 09:25 This 66 yrs old Unknown Male presents to ER via EMS with complaints of S/S of Possible kdr Stroke. 09:25 The patient's problem is reported as a facial droop, on right, weakness, Speech kdr changes. Onset: The symptoms/episode began/occurred suddenly, just prior to arrival. Duration: The episode is continuous. Context: the episode(s) was witnessed, by a bystander, symptoms became apparent Just prior to arrival, occurred at home, occurred while the patient was Patient was at work. Possible contributing factors include:. The symptoms are alleviated by nothing. The symptoms are aggravated by Patient is anxious. Associated signs and symptoms: Pertinent positives: weakness, More shaking, more difficulty speaking. According to his his speech seems a little bit worse. Is residual from his prior stroke with right-sided weakness. Sometimes according to the he drags his right foot when he gets tired. Today she thinks he is anxious about this condition and his ongoing symptoms as well as having worsening of his speech. Severity of symptoms: At their worst the symptoms were mild moderate just prior to arrival, in the emergency department the symptoms are unchanged. Patient's baseline: Neuro: alert and fully oriented, Motor: Patient moves all extremities with possibly some slight weakness on the right, Ambulation: Speech: slurred, The patient has a previous history of. Patient has had a prior stroke involving the same deficits including altered speech and right-sided weakness. The patient has not recently seen a physician. Historical: - Allergies: 09:00 No Known Allergies; ss - Home Meds: 09:00 glipizide 10 mg Oral tab [Active]; triamterene-hydrochlorothiazid 37.5-25 mg Oral tab 1 ss tab once daily [Active]; [place] Thyroid 180 mg Oral tab 1 tab once daily [Active]; Metformin 500 mg tablets. 1000 mg in AM and 1500 in PM Oral [Active]; Warfarin 7.5 mg and 3.5 mg Tuesday \\T\\ Tuesday Oral [Active]; aspirin 325 mg Oral TbEC 1 tab once daily [Active]; Pepcid 20 mg Oral tab 1 tab once daily [Active]; magnesium oxide 400 mg magnesium Oral tab [Active]; - PMHx: 09:00 Cancer, Lung; Diabetes - NIDDM; Hypertension; Thyroid problem; Diabetes mellitus; CVA; ss - Immunization history:: Adult Immunizations unknown. - Social history:: Smoking status: unknown. ROS: 09:25 Constitutional: Negative for fever, chills, and weight loss, Eyes: Negative for injury, kdr pain, redness, and discharge, Neck: Negative for injury, pain, and swelling, Cardiovascular: Negative for chest pain, palpitations, and edema, Respiratory: Negative for shortness of breath, cough, wheezing, and pleuritic chest pain, Abdomen/GI: Negative for abdominal pain, nausea, vomiting, diarrhea, and constipation, Back: Negative for injury and pain, MS/Extremity: Negative for injury and deformity, Skin: Negative for injury, rash, and discoloration, Psych: Negative for depression, anxiety, suicide ideation, homicidal ideation, and hallucinations, Allergy/Immunology: Negative for hives, rash, and allergies, Endocrine: Negative for neck swelling, polydipsia, polyuria, polyphagia, and marked weight changes, Hematologic/Lymphatic: Negative for swollen nodes, abnormal bleeding, and unusual bruising. 09:25 Neuro: Positive for speech changes, weakness, Speech changes. Exam: 09:17 ECG was reviewed by the Attending Physician. kdr 09:25 Constitutional: This is a well developed, well nourished patient who is awake, alert, kdr and in no acute distress. Head/Face: Normocephalic, atraumatic. Eyes: Pupils equal round and reactive to light, extra-ocular motions intact. Lids and lashes normal. Conjunctiva and sclera are non-icteric and not injected. Cornea within normal limits. Periorbital areas with no swelling, redness, or edema. Neck: Trachea midline, no thyromegaly or masses palpated, and no cervical lymphadenopathy. Supple, full range of motion without nuchal rigidity, or vertebral point tenderness. No Meningismus. Chest/axilla: Normal chest wall appearance and motion. Nontender with no deformity. No lesions are appreciated. Cardiovascular: Regular rate and rhythm with a normal S1 and S2. No gallops, murmurs, or rubs. Normal PMI, no JVD. No pulse deficits. Respiratory: Lungs have equal breath sounds bilaterally, clear to auscultation and percussion. No rales, rhonchi or wheezes noted. No increased work of breathing, no retractions or nasal flaring. Abdomen/GI: Soft, non-tender, with normal bowel sounds. No distension or tympany. No guarding or rebound. No evidence of tenderness throughout. Back: No spinal tenderness. No costovertebral tenderness. Full range of motion. Skin: Warm, dry with normal turgor. Normal color with no rashes, no lesions, and no evidence of cellulitis. MS/ Extremity: Pulses equal, no cyanosis. Neurovascular intact. Full, normal range of motion. 09:25 Neuro: Orientation: is normal, Mentation: is normal, Motor: Gait: not tested. 11:37 Radiologist reports: No acute changes kdr Vital Signs: 08:52 BP 180 / 66; Pulse 97; Resp 20; Temp 98.6; Pulse Ox 98% ; Weight 113.4 kg; Height 5 ft. cb5 9 in. (175.26 cm); Pain 0/10; 09:00 BP 161 / 68; Pulse 93; Resp 20; Pulse Ox 97% ; Pain 0/10; cb5 09:30 BP 164 / 65; Pulse 89; Resp 16; Pulse Ox 98% ; Pain 0/10; cb5 09:45 BP 188 / 7; Pulse 90; Resp 18; Pulse Ox 97% ; Pain 0/10; cb5 10:00 BP 160 / 99; Pulse 88; Resp 18; Pulse Ox 96% ; Pain 0/10; cb5 10:15 BP 128 / 55; Pulse 81; Resp 16; Pulse Ox 97% ; Pain 0/10; cb5 10:30 BP 147 / 65; Pulse 79; Resp 16; Pulse Ox 97% ; Pain 0/10; cb5 11:00 BP 131 / 49; Pulse 76; Resp 16; Pulse Ox 97% ; Pain 0/10; cb5 11:30 BP 133 / 57; Pulse 75; Resp 16; Pulse Ox 98% ; Pain 0/10; cb5 12:00 BP 131 / 96; Pulse 73; Resp 16; Pulse Ox 98% ; Pain 0/10; cb5 19:00 BP 167 / 68; Pulse 73; Resp 18; Pulse Ox 97% on R/A; mk 19:55 BP 156 / 70; Pulse 73; Resp 18; Pulse Ox 98% on R/A; mk 08:52 Body Mass Index 36.92 (113.40 kg, 175.26 cm) cb5 NIH Stroke Scale Scores: 08:52 NIHSS Score: 10 cb5 10:00 NIHSS Score: 6 cb5 Steven Coma Score: 19:00 Eye Response: spontaneous(4). Verbal Response: oriented(5). Motor Response: obeys mk commands(6). Total: 15. 19:55 Eye Response: spontaneous(4). Verbal Response: oriented(5). Motor Response: obeys mk commands(6). Total: 15. MDM: 11:36 Patient medically screened. kdr 11:36 Data reviewed: vital signs, nurses notes, lab test result(s), radiologic studies. kdr Counseling: I had a detailed discussion with the patient and/or guardian regarding: the historical points, exam findings, and any diagnostic results supporting the discharge/admit diagnosis, lab results, radiology results, the need for further work-up and treatment in the hospital. ED course: The patient has had prior care at [facility] and requested to be transferred there. On our inquiry, we were informed that there were no beds available at this time at [facility]. Patient subsequently agreed to stay here and be admitted to Dr. Chun. I discussed with Dr. Harvey. He will see the patient in consult to evaluate his current status and consider possible work-up for epilepsy and/or seizures. 09/03 08:56 Order name: Basic Metabolic Panel [facility] 09/03 08:56 Order name: CBC with Diff kdr 09/03 08:56 Order name: Protime (+inr) kdr 09/03 08:56 Order name: Ptt, Activated kdr 09/03 09:11 Order name: COVID-19 SARS RT PCR (Document "Date of Onset" if Symptomatic) bd 09/03 09:12 Order name: SARS-COV-2 RT PCR [facility] 09/03 09:21 Order name: Glucose, Ancillary Testing; Complete Time: 09:23 [facility] 09/03 09:42 Order name: Glucose, Ancillary Testing [facility] 09/03 12:36 Order name: Hemoglobin A1c [facility] 09/03 12:36 Order name: Lipid Profile [facility] 09/03 12:36 Order name: Thyroid Stimulating Hormone [facility] 09/03 12:36 Order name: CBC with Automated Diff [facility] 09/03 12:36 Order name: CBC with Automated Diff [facility] 09/03 12:36 Order name: CBC with Automated Diff [facility] 09/03 08:56 Order name: CT Stroke Brain w/o Contrast; Complete Time: 09:23 kdr 09/03 08:56 Order name: Stroke CXR 1 View kdr 09/03 12:26 Order name: MRA Head Wo Cont [facility] 09/03 12:28 Order name: MRA Neck W/Wo Cont [facility] 09/03 12:36 Order name: CBC with Automated Diff [facility] 09/03 12:36 Order name: Comprehensive Metabolic Panel [facility] 09/03 12:36 Order name: Comprehensive Metabolic Panel [facility] 09/03 12:36 Order name: Comprehensive Metabolic Panel [facility] 09/03 12:36 Order name: Comprehensive Metabolic Panel [facility] 09/03 12:36 Order name: Protime (+INR) [facility] 09/03 12:36 Order name: Protime (+INR) [facility] 09/03 12:36 Order name: Protime (+INR) [facility] 09/03 12:36 Order name: Protime (+INR) [facility] 09/03 17:38 Order name: Glucose, Ancillary Testing [facility] 09/03 08:56 Order name: EKG; Complete Time: 08:57 kdr 09/03 08:56 Order name: Accucheck; Complete Time: 09:19 kdr 09/03 08:56 Order name: Cardiac monitoring; Complete Time: 09:19 kdr 09/03 08:56 Order name: EKG - Nurse/Tech; Complete Time: 09:20 kdr 09/03 08:56 Order name: IV Saline Lock; Complete Time: 09:20 kdr 09/03 08:56 Order name: Labs collected and sent; Complete Time: 09:20 kdr 09/03 08:56 Order name: NPO; Complete Time: 09:20 kdr 09/03 08:56 Order name: O2 Per Protocol; Complete Time: 09:20 kdr 09/03 08:56 Order name: O2 Sat Monitoring; Complete Time: 09:20 kdr 09/03 08:56 Order name: Stroke Swallow Screen; Complete Time: 09:20 kdr 09/03 12:28 Order name: Brain W/Wo Cont [facility] 09/03 12:36 Order name: CONS Physician Consult [facility] 09/03 12:36 Order name: Physical Therapy Consult [facility] 09/03 12:36 Order name: NPO [facility] 09/03 12:37 Order name: Speech Therapy Consult [facility] EC: Rate is 96 beats/min. Rhythm is regular, Sinus Rhythm with Right bundle branch block. kdr QRS Esmond is Normal. MI interval is normal. QRS interval is normal. QT interval is normal. Clinical impression: NSR w/ Non-specific ST/T Changes. Administered Medications: 09:35 Drug: Insulin Regular Human 6 units {Co-Signature: vg1 (Janiya Hunt RN).} Route: cb5 IVP; Site: right antecubital; Disposition Summary: 09/03/21 11:36 Hospitalization Ordered Hospitalization Status: Observation kdr Provider: Raphael Chun Location: Telemetry/MedSurg (observation) kdr Condition: Fair kdr Problem: new kdr Symptoms: have improved kdr Bed/Room Type: Standard [facility] Room Assignment: 201(09/03/21 18:35) bd Diagnosis - Altered mental status, unspecified kdr - Weakness - Right-sided kdr Forms: - Medication Reconciliation Form kdr - SBAR form kdr NIH Stroke Scale - NIH Stroke Score Date: 09/03/2021 Time: 08:52 Total Score = 10 1a. Level of Consciousness (LOC) - 0(Alert) 1b. Level of Consciousness (LOC) (Month \\T\\ Age) - 1(One) 1c. LOC Commands (Open \\T\\ Closes Eyes/Eye Clinic Manager) - 1(One) 2. Best Gaze (Lateral Gaze Paresis) - 0(Normal) 3. Visual Field Loss - 0(No visual loss) 4. Facial Palsy - 1(Minor Paralysis) 5a. Left Arm: Motor (10-second hold) - 2(Drift, some effort against gravity) 5b. Right Arm: Motor (10-second hold) - 0(No drift) 6a. Left Leg: Motor (5-second hold - always test supine) - 2(Drift, some effort against gravity) 6b. Right Leg: Motor (5-second hold - always test supine) - 0(No drift) 7. Limb Ataxia (finger/nose \\T\\ heel/baum - test with eyes open) - 0(Absent) 8. Sensory Loss (pinprick arms/legs/face) - 1(Mild to moderate loss) 9. Best Language: Aphasia (description/naming/reading) - 1(Mild to moderate aphasia) 10. Dysarthria (speech clarity - read or repeat words) - 1(Mild to Moderate) 11. Extinction and Inattention (visual/tactile/auditory/spatial/personal) - 0(No abnormality) Initials: cb5 NIH Stroke Scale - NIH Stroke Score Date: 09/03/2021 Time: 10:00 Total Score = 6 1a. Level of Consciousness (LOC) - 0(Alert) 1b. Level of Consciousness (LOC) (Month \\T\\ Age) - 0(Both) 1c. LOC Commands (Open \\T\\ Closes Eyes/Eye Clinic Manager) - 0(Both) 2. Best Gaze (Lateral Gaze Paresis) - 0(Normal) 3. Visual Field Loss - 0(No visual loss) 4. Facial Palsy - 1(Minor Paralysis) 5a. Left Arm: Motor (10-second hold) - 1(Drift) 5b. Right Arm: Motor (10-second hold) - 0(No drift) 6a. Left Leg: Motor (5-second hold - always test supine) - 1(Drift) 6b. Right Leg: Motor (5-second hold - always test supine) - 0(No drift) 7. Limb Ataxia (finger/nose \\T\\ heel/baum - test with eyes open) - 0(Absent) 8. Sensory Loss (pinprick arms/legs/face) - 1(Mild to moderate loss) 9. Best Language: Aphasia (description/naming/reading) - 1(Mild to moderate aphasia) 10. Dysarthria (speech clarity - read or repeat words) - 1(Mild to Moderate) 11. Extinction and Inattention (visual/tactile/auditory/spatial/personal) - 0(No abnormality) Initials: cb5 Signatures: Dispatcher [employer] EDMS Kaylyn Raya Kevin, MD MD [facility] Miley Dumont RN RN Lidia Watts RN RN sm5 Laura Morales, EBONI RN cb5 Janiya Hunt RN vg1 Corrections: (The following items were deleted from the chart) 12:26 11:40 MR STROKE PROTOCOL+MRI.RAD.BRZ ordered. EDMS EDMS 18:35 11:36 kdr bd
[2021-09-03] MEDS ORDERED: GLUCAGON 1 MG/VIAL IM PRN (12:34)
[2021-09-03] MEDS ORDERED: D50W 25 GM/50 ML SYRINGE IV PRN (12:34)
--- NOTE | 2021-09-03 13:21 | P.HP ---
Certification for Inpatient Patient admitted to: Inpatient With expected LOS: >2 Midnights Patient will require the following post-hospital care: Home Health Services Practitioner: I am a practitioner with admitting privileges, knowledge of patient current condition, hospital course, and medical plan of care. Services: Services provided to patient in accordance with Admission requirements found in Title 42 Section 412.3 of the Code of Federal Regulations Patient History Date of Service: 09/03/21 Primary Care Provider: Gerardo sánchez. Reason for admission: cva History of Present Illness: Patient of Dr. Gerardo Sánchez He has a history of diabetes, cva in December of last year. He is on Coumadin for multiple blood clots. The patient had a history of lung cancer treated by Dr. Campos. He had a follow up yesterday with his Neurologist Dr. Maya Avalos.([phone]) He had some obstructions in his carotids and possible vertebral. He was otherwise doing well. He went to work this morning felt that his sugars were low. However the patient started having some weakness and dropping o his left face. He had similar symptoms last December. However then it resolved in a day or so. He came to the ER. Had a negative CT scan. The patient has been having some improvement of his speech. However nursing reports that he failed a bedside swallow evaluation Allergies No Known Allergies Allergy (Verified 09/04/14 14:56) Home Medications: Antiox.mv No.10/Omeg3s/Lut/Dina [I-Caps with Lutein-[place] 3 Sfg] 1 each PO DAILY 09/04/14 Cyanocobalamin (Vitamin B-12) [B-12] 2,500 mcg SL DAILY 09/04/14 Ezetimibe/Simvastatin [Vytorin 10-80 mg Tablet] 1 tab PO DAILY 09/04/14 Famotidine [Pepcid] 40 mg PO DAILY 09/04/14 Furosemide [Lasix] 40 mg PO DAILY 09/04/14 Glipizide [Glipizide ER] 5 mg PO TID 09/04/14 Losartan Potassium [Cozaar*] 50 mg PO DAILY 09/04/14 Metformin ER [Glucophage ER] 500 mg PO DAILY 09/04/14 Thyroid Tab [[place] Thyroid] 30 mg PO DAILY 09/04/14 Thyroid,Pork [[place] Thyroid] 120 mg PO DAILY 09/04/14 Warfarin Sodium 7.5 mg PO DAILY 09/04/14 atenoloL [Tenormin*] 25 mg PO DAILY 09/04/14 - Past Medical/Surgical History Diabetic: Yes -: HTN -: DM -: GERD -: Hypothyroidism -: Lymphedema -: Sleep Apnea -: Obesity -: LLE [employer] 1994 -: Hernia repair -: Right shoulder -: Right knee -: Right elbow -: Bilateral hands - Social History Alcohol use: No Review of Systems 10-point ROS is otherwise unremarkable General: Weakness Neurological: Weakness, Change in Speech, Other (drooping of the left side of te face ) Physical Examination - Physical Exam General: Alert, In no apparent distress HEENT: Atraumatic, PERRLA, Mucous membr. moist/pink, EOMI, Sclerae nonicteric Neck: Supple, 2+ carotid pulse no bruit, No LAD, Without JVD or thyroid abnormality Respiratory: Clear to auscultation bilaterally, Normal air movement Cardiovascular: Regular rate/rhythm, Normal S1 S2 Gastrointestinal: Normal bowel sounds, No tenderness Musculoskeletal: No tenderness Integumentary: No rashes Neurological: Normal gait, Normal speech, Normal tone, Cranial nerves 3-12 intact, Normal affect, Abnormal speech, Abnormal strength (4/5), Abnormal tone Lymphatics: No axilla or inguinal lymphadenopathy - Studies Laboratory Data (last 24 hrs) 09/03/21 09:12: PT 16.7 H, INR 1.45, APTT 38.9 H 09/03/21 09:12: WBC 5.70, Hgb 13.9, Hct 42.5, Plt Count 233 09/03/21 09:12: Sodium 135 L, Potassium 4.3, BUN 17, Creatinine 1.15, Glucose 316 H Assessment and Plan - Problems (Diagnosis) (1) CVA (cerebral vascular accident) Current Visit: Yes Status: Acute Plan: Will admit him to the hospital. Start him on aspirin. Consult Dr. Harvey, PT. Get a speech eval. Will try to get his mra from [facility]. Have tried getting in touch with Dr. Salazar. Qualifiers: CVA mechanism: unspecified Qualified Code(s): I63.9 - Cerebral infarction, unspecified (2) Recurrent pulmonary emboli Current Visit: Yes Status: Chronic Plan: restart his warfarin. He is subtherapeutic (3) Diabetes Current Visit: No Status: Acute Plan: He is on metformin and glipizied. Will hold these for now. Will keep him on a low dose sliding scale Qualifiers: Diabetes mellitus type: type 2 Diabetes mellitus half-way insulin use: without half-way use Chronic kidney disease stage: stage 1 (4) Hypothyroidism Current Visit: No Status: Acute Plan: check a tsh and start the patient on his home medications. Qualifiers: Hypothyroidism type: unspecified Qualified Code(s): E03.9 - Hypothyroidism, unspecified Discharge Plan: Home Plan to discharge in: 48 Hours - Advance Directives Does patient have a Living Will: No Does patient have a Durable POA for Healthcare: No - Code Status/Comfort Care Code Status Assessed: Yes Code Status: Full Code Physician Review: Patient Assessed, Agree with Above Assessment and Plan Critical Care: No Time Spent Managing Pts Care (In Minutes): 50
--- NOTE | 2021-09-03 14:05 | RAD REPORT ---
EXAM DESCRIPTION: MRI - Brain W/Wo Cont - 09/03/2021 1:52 pm CLINICAL HISTORY: CONFUSED, slurred speech, left-sided weakness, history of CVA January 2021 COMPARISON: MRA Head Wo Cont dated 09/03/2021; Ct Stroke Brain Wo Cont dated 09/03/2021 TECHNIQUE: Sagittal and axial T1-weighted images were obtained. Axial PD/heavily T2-weighted and T2- FLAIR images were obtained along with axial DWI/ADC mapping sequences. Coronal heavily T2 weighted s equence obtained. Axial and coronal post-contrast T1-weighted images were also obtained. A 20 ml Mul tihance contrast following utilized. FINDINGS: No intracranial hemorrhage, mass or acute infarction. There is no edema or shift of midli ne structures. No extra-axial fluid collections. Littlejohn-matter/white matter junction is preserved. Atro phy and chronic ischemic changes are mild. Ventricles are in proportion to volume loss. Signal voids are seen as a normal finding in the major intracranial vessels. No globe or orbital content abnormali ty. Post-contrast images show no abnormal enhancement of brain parenchyma. A 13 millimeter sessile enhanc ing mass along the dura lateral left frontal lobe is an incidental meningioma. This is calcified on t he CT study. Mastoid air cells and paranasal sinuses are clear. IMPRESSION: No acute infarction changes are present. No hemorrhage, new mass lesion or other acute i ntracranial finding. Mild atrophy chronic ischemic change.
--- NOTE | 2021-09-03 14:12 | RAD REPORT ---
EXAM DESCRIPTION: MRI - MRA Neck W/Wo Cont - 09/03/2021 1:52 pm CLINICAL HISTORY: Confusion, slurred speech, stroke-like symptoms COMPARISON: CT head same date, MRI head same date TECHNIQUE: MR angiography of the cervical vasculature performed. Coronal imaging plane acquisition u tilized. A 20 MultiHance contrast volume was utilized. Coronal reformatted images were generated and reviewed. Vertical axis 3D rotational projections obtained using maximum intensity projection protoco l. FINDINGS: Aortic arch is 3 vessel configuration. Innominate and left subclavian artery origins are u nremarkable. The left common carotid artery proximal 3 cm are limited in detail due to the venous con trast contamination of the brachiocephalic vein. Greater than 50% stenosis in this region is not susp ected. Remainder of the left common carotid artery shows no significant or suspicious finding. Left i nternal carotid artery also without significant atherosclerotic change or luminal narrowing. The proximal 2.5 cm of the right common carotid artery is abnormal with significant atherosclerotic c hange and luminal narrowing estimated at 60-70%. More distal portions of the right common carotid art ymra and the right internal carotid artery show no significant disease. Approximately 50% stenosis seen at the origin of the left vertebral artery which is the dominant vess el. The much smaller right vertebral artery origin is poorly visualized and cannot be accurately asse ssed. Remainder of each vertebral artery shows no dissection or significant atherosclerotic change. B asilar artery is unremarkable. IMPRESSION: Approximately 60-70% stenosis involving the proximal most 2.5 cm of the right common car otid artery. Approximately 50% stenosis present at the origin of the left vertebral artery which is the dominant v essel. Much smaller right vertebral artery origin could not be adequately visualized.
--- NOTE | 2021-09-03 14:15 | RAD REPORT ---
EXAM DESCRIPTION: MRI - MRA Head Wo Cont - 09/03/2021 1:52 pm CLINICAL HISTORY: Slurred speech, confusion, stroke-like symptoms, history of CVA January 2021 COMPARISON: MRI brain same date, CT head same date TECHNIQUE: Axial and coronal 3D [id number] image acquisition was performed. 3D rotational images were generated with source and reconstruction images reviewed. Horizontal and vertical axis rotation al views generated using MIP protocol. FINDINGS: The dominant distal left vertebral artery and basilar artery show no abnormalities. The mu ch smaller distal right vertebral artery is incompletely visualized. No significant right posterior c erebral artery finding. There is high-grade stenosis of the left posterior cerebral artery at the P1- P2 junction. The anterior cerebral and middle cerebral arteries show no named branch occlusion or significant athe rosclerotic change. No vasculitis seen. Distal internal carotid arteries are without significant find ing. IMPRESSION: Significant stenosis seen in the left posterior cerebral artery. No other significant atherosclerotic change, named branch occlusion or vasculitis.
[2021-09-03] MEDS: NA CHLORIDE 0.9% 1,000 ML IV SCH ×2 (15:00→22:10)
[2021-09-03] MEDS ORDERED: NA CHLORIDE 0.9% 1,000 ML ONE (15:04)
--- NOTE | 2021-09-03 15:16 | P.HP ---
Date of Service: 09/03/21 Have discussed the Patient with Dr. Maya Salazar He has had a recent MRI/ MRA. 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 He did not have any sign of stroke. Dr. Avalos suspected poor blood sugar control and microvascular disease being the cause of his dizziness. Have spent an additional 20min discussing this
[2021-09-03] MEDS: INSULIN -REGULAR HUMAN 50 UNIT/0.5 ML ML SQ SCH ×2 (16:30→21:00)
[2021-09-03] MEDS ORDERED: WARFARIN SODIUM 5 MG TAB PO SCH (17:00)
[2021-09-03] MEDS ORDERED: WARFARIN SODIUM 5 MG TAB ONE (17:24)
[2021-09-03] MEDS ORDERED: ATORVASTATIN 40 MG TAB PO SCH (21:00)
[2021-09-03] MEDS ORDERED: EZETIMIBE 10 MG TAB PO SCH (21:00)
[2021-09-03 21:40] VITALS: O2SAT 98
[2021-09-04 06:55] LABS: Hematocrit 40.2 % (39.6-49.0); Lymphocytes % 15.7 % (15.3-44.8); MPV 7.7 fL (7.6-11.3); RBC Red Blood Cell Count 5.02 M/uL (4.33-5.43)
[2021-09-04 07:03] LABS: Protime INR 2.14
[2021-09-04 07:19] LABS: Albumin 2.9 g/dL (3.4-5.0); Bilirubin Total 0.4 mg/dL (0.2-1.0); Potassium 4.2 mmol/L (3.5-5.1); Protein, Total 6.5 g/dL (6.4-8.2); Thyroid Stimulating Hormone 0.006 uIU/mL (0.360-3.740)
[2021-09-04] MEDS: INSULIN -REGULAR HUMAN 50 UNIT/0.5 ML ML SQ SCH ×2 (07:30→13:08)
[2021-09-04] MEDS ORDERED: THYROID PORK 120 MG PO SCH (09:00)
[2021-09-04] MEDS ORDERED: THYROID 30 MG TAB PO SCH (09:00)
[2021-09-04] MEDS ORDERED: SIMVASTATIN PO SCH (09:00)
[2021-09-04] MEDS ORDERED: ASPIRIN EC 81 MG TAB PO SCH (09:00)
[2021-09-04] MEDS ORDERED: FAMOTIDINE 20 MG TAB PO SCH (09:00)
[2021-09-04] MEDS ORDERED: atenoloL 25 MG TAB PO SCH (09:00)
[2021-09-04] MEDS ORDERED: LOSARTAN POTASSIUM 50 MG TABLET PO SCH (09:00)
[2021-09-04] MEDS ORDERED: EZETIMIBE PO SCH (09:00)
[2021-09-04] MEDS: NA CHLORIDE 0.9% 1,000 ML IV SCH (11:09)
--- NOTE | 2021-09-04 12:13 | P.DS ---
Admission Date: 09/03/21 Discharge Date: 09/04/21 Primary Care Provider: Gerardo sánchez. Disposition: ROUTINE DISCHARGE Reason for Admission: cva - Problems (1) CVA (cerebral vascular accident) Current Visit: Yes Status: Acute Qualifiers: CVA mechanism: unspecified Qualified Code(s): I63.9 - Cerebral infarction, unspecified (2) Recurrent pulmonary emboli Current Visit: Yes Status: Chronic (3) Diabetes Current Visit: No Status: Acute Qualifiers: Diabetes mellitus type: type 2 Diabetes mellitus usp insulin use: without termite exterminator helper use Chronic kidney disease stage: stage 1 (4) Hypothyroidism Current Visit: No Status: Acute Qualifiers: Hypothyroidism type: unspecified Qualified Code(s): E03.9 - Hypothyroidism, unspecified Brief History of Present Illness: Patient of Dr. Gerardo Sánchez He has a history of diabetes, cva in December of last year. He is on Coumadin for multiple blood clots. The patient had a history of lung cancer treated by Dr. Campos. He had a follow up yesterday with his Neurologist Dr. Maya Avalos.([phone]) He had some obstructions in his carotids and possible vertebral. He was otherwise doing well. He went to work this morning felt that his sugars were low. However the patient started having some weakness and dropping o his left face. He had similar symptoms last December. However then it resolved in a day or so. He came to the ER. Had a negative CT scan. The patient has been having some improvement of his speech. However nursing reports that he failed a bedside swallow evaluation Hospital Course: Patient admitted for a tia. He had a negative ct. MRI/MRA showed no acute infract. 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 The patient has fully recovered the use of his face and strenght. Per Dr. Avalos the stenosis was on the previous MRA done sometimes in the last month. He has a suppressed tsh. will advise that he stop the 30mcg of thyroid and just continue the 120mcg of thyroid medications. Vital Signs/Physical Exam: Temp Pulse Resp BP Pulse Ox 97.1 F 76 18 158/73 H 98 09/04/21 08:00 09/04/21 08:32 09/04/21 08:00 09/04/21 08:32 09/04/21 08:00 General: Alert, In no apparent distress HEENT: Atraumatic, PERRLA, EOMI Neck: Supple, JVD not distended Respiratory: Clear to auscultation bilaterally, Normal air movement Cardiovascular: Regular rate/rhythm, Normal S1 S2 Gastrointestinal: Normal bowel sounds, No tenderness Musculoskeletal: No tenderness Integumentary: No rashes Neurological: Normal speech, Normal tone, Normal affect Lymphatics: No axilla or inguinal lymphadenopathy Laboratory Data at Discharge: WBC 6.40 K/uL (4.3-10.9) 09/04/21 06:21 Hgb 13.3 g/dL (13.6-17.9) L 09/04/21 06:21 Hct 40.2 % (39.6-49.0) 09/04/21 06:21 Plt Count 231 K/uL (152-406) 09/04/21 06:21 PT 24.8 SECONDS (9.5-12.5) H 09/04/21 06:21 INR 2.14 09/04/21 06:21 APTT 38.9 SECONDS (24.3-36.9) H 09/03/21 09:12 Sodium 137 mmol/L (136-145) 09/04/21 06:21 Potassium 4.2 mmol/L (3.5-5.1) 09/04/21 06:21 BUN 13 mg/dL (7-18) 09/04/21 06:21 Creatinine 0.89 mg/dL (0.55-1.3) 09/04/21 06:21 Glucose 180 mg/dL (74-106) H 09/04/21 06:21 Total Bilirubin 0.4 mg/dL (0.2-1.0) 09/04/21 06:21 AST 21 U/L (15-37) 09/04/21 06:21 ALT 32 U/L (12-78) 09/04/21 06:21 Alkaline Phosphatase 107 U/L (45-117) 09/04/21 06:21 Triglycerides 194 mg/dL (<150) H 09/04/21 06:21 Cholesterol 129 mg/dL (<200) 09/04/21 06:21 HDL Cholesterol 30 mg/dL (40-60) L 09/04/21 06:21 Cholesterol/HDL Ratio 4.30 09/04/21 06:21 Home Medications: Ezetimibe/Simvastatin [Vytorin 10-80 mg Tablet] 1 tab PO DAILY 09/04/14 Famotidine [Pepcid] 20 mg PO DAILY 09/04/14 Glipizide [Glipizide ER] 15 mg PO TID 09/04/14 Metformin ER [Glucophage ER] 500 mg PO SEECOM 09/04/14 Thyroid,Pork [[place] Thyroid] 180 mg PO DAILY 09/04/14 Warfarin Sodium 7.5 mg PO SEECOM 09/04/14 Aspirin Tab [Fiordaliza Aspirin*] 1 tab PO DAILY 09/03/21 Cinnamon Bark [Cinnamon] 1 cap PO DAILY 09/03/21 Magnesium Oxide [Magnesium] 400 mg PO DAILY 09/03/21 Multivit-Mins/Iron/Folic/Lycop [Centrum Men's Tablet] 1 tab PO DAILY 09/03/21 Mv-Mn/Iron/Folic Acid/Herb 190 [Vitamin D3 Complete Caplet] 400 mg PO DAILY 09/03/21 Triamterene/Hydrochlorothiazid [Triamterene-Hctz 37.5-25 mg Cp] 1 cap PO DAILY 09/03/21 Turmeric Root Extract [Turmeric Curcumin] 1 cap PO DAILY 09/03/21 Diet: ADA Activity: Ad joanie Followup: Raphael Chun MD [Primary Care Provider] - Time spent managing pt's care (in minutes): 30
[2021-09-04 12:34] VITALS: BP 165/73; TEMP 97.8
--- NOTE | 2021-09-04 13:09 | EKG ---
Test Date: 2021-09-03 Test Time: 09:09:21 Internet Security Specialist: ELLIS MEASUREMENT RESULTS: Intervals: Rate: 96 NC: 198 QRSD: 130 QT: 392 QTc: 495 [place]: P: 55 NC: 198 QRS: -41 T: 10 INTERPRETIVE STATEMENTS: Sinus rhythm with fusion complexes and premature atrial complexes with aberrant conduction Left axis deviation Right bundle branch block Abnormal ECG Compared to ECG 01/02/1998 14:57:00 Atrial premature complex(es) now present Fusion complex(es) now present Aberrant conduction of supraventricular beat(s) now present Left-axis deviation now present Right bundle-branch block now present Incomplete right bundle-branch block no longer present Electronically Signed On 09-04-21 13:03:21 ENERGY ATTORNEY by Vinny Rojo
[2021-09-04 13:11] VITALS: BMI 36.9
--- NOTE | 2021-09-04 18:57 | CON ---
Consultation called because of possible stroke. History Of Present Illness: Mr. Gamez is a 66-year-old patient with hypertension and diabetes natan kee, who has had a prior stroke and is on Coumadin, comes to [facility] with dizziness, co nfusion, and some difficulty with coordination and perhaps facial drooping as well. He said he had b een feeling a little dizzy, thought his blood sugars might have been low, but he went to work and he took 2 sugar pills, felt a little better, but when he got to work and went to a meeting, he started t o feel unwell again. Coworkers summoned emergency services and came to [facility]. He had a head CT scan that was done at 9:03 a.m. on 09/03 and he arrived at the emergency room at 8:52 on , however, the onset of his symptoms could not be clearly identified. He said somewhere early in the morning, which was several hours previously and he was not felt to be a candidate for tissue plas minogen activator as he could not determine onset of his symptoms. His initial NIH Stroke Scale was around 10 because of the aphasic component and left-sided weakness with numbness and furthermore, he was on Coumadin, which had an INR of 1.45, was subtherapeutic. He was actually loaded Cou madin and today, his INR is 2.14. The patient did say his symptoms did resolve by the time he had go t up to his room. His brain MRI done yesterday did not show an acute ischemic or hemorrhagic change. The study showed atrophy and chronic ischemic change with ventricles increase in volume and proport ion to the loss of brain. There was an incidental finding of a 13 mm sessile dural left frontal meni ngioma. His blood work revealed essentially unremarkable complete blood count with differential. Chemistries showed blood sugars to be elevated to 304 to 316. Hemoglobin A1c elevated at 9.3. Initial sodium s lightly low at 135, calcium normal at 9.1. His total cholesterol was 129, LDL cholesterol 60, HDL ch olesterol 30. Thyroid-stimulating hormone is very low at 0.006. COVID-19 testing was negative. Past Medical History: Lung cancer, [facility] Mckinney; hypothyroidism; hyperte nsion; diabetes mellitus; prior stroke. Allergies: NO KNOWN DRUG ALLERGIES. Home Medications: Glipizide 10 mg daily, triamterene/hydrochlorothiazide 37.5/25 daily, [place] Thyro id 180 mg oral tablet daily, metformin 500 mg tablets 2 in the morning and 3 at night, Coumadin 7.5 m g Tuesday through Tuesday and 3.5 mg Tuesday and Tuesday, aspirin 325 mg daily, Pepcid 20 mg daily, mag nesium oxide 400 mg daily. Family History: Noncontributory. Physical Examination: Vital Signs: Blood pressure 165/73, pulse 78, respiratory rate 18, temperature 97.8, oxygen saturati on 94% to 98% on room air. Weight 250 pounds, height 5 feet 9 inches, BMI 36.9. General: Mr. Gamez is resting in bed. His is at bedside. He is in no acute distress. HEENT: He is normocephalic, atraumatic. His sclerae are anicteric. Oropharynx is moist and pink. Neck: Supple. Chest: Clear. Heart: Regular. Extremities: Show no significant cyanosis or edema. Neurologic: He has no expressive or receptive aphasias as this point. His face appears symmetric. Slight decrease in the nasolabial fold on the left. His sensation is intact in V1, V2, V3 bilaterall y. His upper and lower extremities show no obvious differences in strength nor sensation. He has sy mmetric reflexes are depressed in the extremities. Coordination is intact and slow gait. He has goo d stance and stride. At this point, NIH Stroke Scale 2. Assessment: Mr. Gamez is a 66-year-old patient with multiple stroke risk factors, including hyper tension, diabetes mellitus with uncontrolled blood sugars, and his hypothyroidism, very low TSH, prio r stroke, and he came in with subtherapeutic level of Coumadin. Coumadin is now in a therapeutic ran ge. He is also on aspirin. Plan: 1.Continue current medication regimen. 2.He will follow up with his neurologist in [place]. 3.He was instructed on importance of being compliant with medications, in addition to having the INR checked on a regular basis. 4.He may return to work on Tuesday with no restrictions. CRISELDA/KASHIF Voice ID: [id number] Report ID: [id number]
== END 2021-09-04 14:01 | disposition home or self-care (01) | DRG 69 ==
LOC: SUPCPDRO 08:51 → ER 08:51 → ERHOLD 12:28 → 2ND 18:40
PROVIDERS: ADMIT Internal Medicine; ATTEND Internal Medicine
DX: G45.9 Transient cerebral ischemic attack, unspecified (principal); I69.351 Hemiplegia and hemiparesis following cerebral infarction affecting right dominant side; I27.82 Chronic pulmonary embolism; I12.9 Hypertensive chronic kidney disease with stage 1 through stage 4 chronic kidney disease, or unspecified chronic kidney disease; N18.1 Chronic kidney disease, stage 1; E11.22 Type 2 diabetes mellitus with diabetic chronic kidney disease; E03.9 Hypothyroidism, unspecified; F41.9 Anxiety disorder, unspecified; R29.710 NIHSS score 10; R29.810 Facial weakness; Z79.84 Long term (current) use of oral hypoglycemic drugs; Z79.01 Long term (current) use of anticoagulants; Z85.118 Personal history of other malignant neoplasm of bronchus and lung; Z79.890 Hormone replacement therapy; Z79.82 Long term (current) use of aspirin; Z79.899 Other long term (current) drug therapy; Z20.822 Contact with and (suspected) exposure to COVID-19
CPT/HCPCS: 36415; 70450; 70544; 70549; 70553; 71045; 80048; 80053; 80061; 82947; 83036; 84443; 85025; 85610; 85730; 92610; 93005; 96374; 99285; A9577; J7030; U0003

== ENCOUNTER 2023-11-07 08:16 | Observation (INO) | payer OTHER, BC ==
[2023-11-07] MEDS ORDERED: ONDANSETRON 4 MG/2 ML VIAL ONE (08:50)
[2023-11-07] MEDS ORDERED: FENTANYL CITR 100 MCG/2 ML ONE ×2 (08:51→09:59)
[2023-11-07 09:23] LABS: Absolute Eosinophils 0.1 K/uL (0-0.5); Absolute Lymphocytes (CBC) 0.8 K/uL (0.7-4.9); Absolute Monocytes 0.6 K/uL (0.1-1.3); Absolute Neutrophil 5.8 K/uL (1.8-8.0); Basophils % 0.7 % (0-1.3); Eosinophils % 1.3 % (0-4.4); Hematocrit 45.9 % (39.6-49.0); Hemoglobin 14.4 g/dL (13.6-17.9); Lymphocytes % 11.2 % (15.3-44.8); MCH 24.1 pg (27.0-35.0); MCHC 31.3 g/dL (32.0-36.0); MCV 76.8 fL (80-100); MPV 7.5 fL (7.6-11.3); Monocytes % 8.7 % (3.3-12.3); Neutrophils % 78.1 % (41.7-73.7); Platelets 257 thou/uL (152-406); RBC Red Blood Cell Count 5.98 M/uL (4.33-5.43); Red Cell Distribution Width 18.7 % (12.1-15.2)
[2023-11-07 09:27] LABS: PT Prothrombin Time 21.6 SECONDS (9.5-12.5)
--- NOTE | 2023-11-07 09:33 | RAD REPORT ---
EXAM DESCRIPTION: CT - Head C Spine Cap Wo Con - 11/07/2023 8:45 am CLINICAL HISTORY: TRAUMA COMPARISON: Lung Cancer Screening CT W/O dated 09/12/2023; Ct Stroke Brain Wo Cont dated 09/03/2021 TECHNIQUE: Head and cervical spine CT images were obtained without IV contrast. Chest, abdomen, and pelvis CT images were obtained following intravenous administration of 90 mL Isovue-300. Multiplanar reformats were generated and reviewed. All CT scans are performed using dose optimization technique as appropriate and may include automated exposure control or mA/KV adjustment according to patient size. FINDINGS: CT HEAD: No intracranial hemorrhage, mass effect, or edema. Calcified 12 mm meningioma overlying the left oper culum. Moderate patchy symmetric deep white hypodensities, nonspecific, but suggestive of chronic sma ll vessel ischemic changes. No evidence of acute territorial infarct. No midline shift or abnormal fl uid collection. The ventricles are normal in caliber and configuration for age. Basal cisterns are pa tent. Mastoid aircells and paranasal sinuses are clear. No acute skull fracture. CT CERVICAL SPINE: No acute cervical spine fracture or subluxation. Sequelae of posterior decompression and posterior ap proach hardware fusion spanning C3-C7. Vertebral body heights are well maintained. Multilevel degener ative changes contributing to degrees of neural foraminal narrowing, up to severe on the left at C6-7 . No hyperattenuating canal hematoma. Prevertebral and paraspinous soft tissues are unremarkable. CT CHEST: No pneumothorax, pulmonary contusion or pleural fluid collection. Bilobed smoothly marginated 1.9 x 1 .2 cm peribronchovascular right middle lobe nodule, stable. Fusion deformity along the right first an d second ribs is stable. No mediastinal hematoma and the aorta and pulmonary arteries are unremarkabl e. No chest will mass or abnormal axillary finding. No displaced rib fracture or other significant marian ny finding. CT ABDOMEN/ PELVIS: No evidence of traumatic injury to solid abdominal viscera. Gallbladder and biliary tree are unremark able. No bowel injury or significant finding. No free air, free fluid or abnormal fat stranding. No u rinary bladder abnormality. No significant bony finding. IMPRESSION: No acute traumatic findings. Stable incidental findings as above including a small left frontal convexity calcified meningioma and a right middle lobe bilobed 1.9 cm lung nodule.
[2023-11-07 09:42] LABS: AST/SGOT 14 U/L (15-37); Albumin 3.6 g/dL (3.4-5.0); Albumin/Globulin Ratio 0.9 (1.1-1.8); Alkaline Phosphatase 93 U/L (45-117); Anion Gap 6.2 mEq/L (5.0-15.0); BUN Blood Urea Nitrogen 25 mg/dL (7-18); Bicarbonate 33 mEq/L (21-32); Bilirubin Total 0.6 mg/dL (0.2-1.0); Globulin 4.1 g/dL (2.3-3.5); Glomerular Filtration Rate 60 ml/min (=/>90); Glucose Level 171 mg/dL (74-106); NT PRO-BNP 93 pg/mL (<125); Potassium 4.2 mEq/L (3.5-5.1); Protein, Total 7.7 g/dL (6.4-8.2); Sodium Level 135 mEq/L (136-145); Troponin High Sensitivity 13.7 pg/mL (<58.9)
[2023-11-07 09:43] LABS: ALT/SGPT < 10 U/L (16-61)
--- NOTE | 2023-11-07 10:01 | RAD REPORT ---
EXAM DESCRIPTION: Jose Rt Single View11/07/2023 9:22 am CLINICAL HISTORY: CHEST PAIN COMPARISON: Chest Pa And Lat (2 Views) dated 08/15/2023; Chest Single View dated 09/03/2021; CHEST PA AND LAT 2 VIEW dated 09/15/2015 TECHNIQUE: Portable AP view of the chest. FINDINGS: The lungs are clear. No pneumothorax or effusion. The cardiomediastinal contours are unre markable. IMPRESSION: No acute cardiopulmonary process.
--- NOTE | 2023-11-07 10:11 | ER ---
Nurse's Notes [facility] Name: Twin Gamez Age: 68 yrs Sex: Male : 1955 Arrival Date: 11/07/2023 Time: 08:16 Bed 16 Private MD: Diagnosis: Syncope;Repeated falls;Contusion of back wall of thorax Presentation: 11/06 08:18 Chief complaint: Patient states: dizzy and fell this morning. Pt states "I've fallen aa5 about 3 times over the last week and I am not sure if I hit my head or not". 08:18 Coronavirus screen: At this time, the client does not indicate any symptoms associated aa5 with coronavirus-19. Ebola Screen: Patient denies travel to an Ebola-affected area in the 21 days before illness onset. Initial Sepsis Screen: Does the patient meet any 2 criteria? No. Patient's initial sepsis screen is negative. Does the patient have a suspected source of infection? No. Patient's initial sepsis screen is negative. Risk Assessment: Do you want to hurt yourself or someone else? Patient reports no desire to harm self or others. 08:18 Acuity: CHIARA 2 aa5 08:18 Method Of Arrival: Ambulatory aa5 08:18 Onset of symptoms was October 2023. aa5 Historical: - Allergies: 08:19 No Known Allergies; aa5 - PMHx: 08:18 Cancer; Lung; Cancer; CVA; diabetes mellitus; Hypertension; Thyroid problem; aa5 Parkinson's disease; - Immunization history:: Adult Immunizations up to date. - Infectious Disease History:: Denies. - Social history:: Smoking status: Patient/guardian denies using tobacco. Screenin:30 [facility] [place] ED Fall Risk Assessment (Adult) History of falling in the last 3 months, rs5 including since admission No falls in past 3 months (0 pts) Confusion or Disorientation No (0 pts) Intoxicated or Sedated No (0 pts) Impaired Gait No (0 pts) Mobility Assist Device Used No (0 pt) Altered Elimination No (0 pt) Score/Fall Risk Level 0 - 2 = Low Risk Oriented to surroundings, Maintained a safe environment. 08:30 Abuse screen: Denies threats or abuse. Nutritional screening: No deficits noted. rs5 Tuberculosis screening: No symptoms or risk factors identified. Assessment: 08:30 General: Appears in no apparent distress. uncomfortable, Behavior is calm, cooperative. rs5 Pain: Complains of pain in upper back Pain does not radiate. Pain currently is 9 out of 10 on a pain scale. Quality of pain is described as aching, Is continuous. Neuro: Level of Consciousness is awake, alert, obeys commands, Oriented to person, place, time, situation. Cardiovascular: Patient's skin is warm and dry. Rhythm is regular. Respiratory: Airway is patent Respiratory effort is even, unlabored, Respiratory pattern is regular, symmetrical. GI: Abdomen is round non-distended, Abd is soft and non tender X 4 quads. : No signs and/or symptoms were reported regarding the genitourinary system. EENT: No signs and/or symptoms were reported regarding the EENT system. Derm: Skin is intact, Skin is pink, warm \\T\\ dry. Musculoskeletal: Range of motion: intact in all extremities, Pt states "I've fallen 3 times over the past few days and I don't know why, I just get kind of weak and I fall" no bruising or redness noted anywhere on pt's body. Pt denies LOC when he falls. 09:20 Reassessment: Patient and/or family updated on plan of care and expected duration. Pain rs5 level reassessed. Patient is alert, oriented x 3, equal unlabored respirations, skin warm/dry/pink. Patient states feeling better. Patient states symptoms have improved. 10:00 Reassessment: Patient and/or family updated on plan of care and expected duration. Pain rs5 level reassessed. Patient is alert, oriented x 3, equal unlabored respirations, skin warm/dry/pink. Pain: Complains of pain in upper back Pain currently is 8 out of 10 on a pain scale. Quality of pain is described as aching, Is continuous. 10:01 Reassessment: provider notified pt is experiencing pain. rs5 10:44 Reassessment: Patient and/or family updated on plan of care and expected duration. Pain rs5 level reassessed. Patient is alert, oriented x 3, equal unlabored respirations, skin warm/dry/pink. Patient denies pain at this time. Patient states feeling better. Patient states symptoms have improved. 12:10 Reassessment: No changes from previously documented assessment. rs5 13:15 Reassessment: No changes from previously documented assessment. rs5 Vital Signs: 08:18 BP 168 / 64; Pulse 74; Resp 19 S; Temp 97.8(TE); Pulse Ox 97% on R/A; Weight 108.86 kg aa5 (R); Height 5 ft. 8 in. (R); 13:00 BP 150 / 76; Pulse 73; Resp 18; Pulse Ox 99% on R/A; rs5 08:18 Body Mass Index 36.49 (108.86 kg, 172.72 cm) aa5 ED Course: 08:19 Patient arrived in ED. mg5 08:19 Yelena Vizcaino FNP [facility]. jh7 08:19 Blake Otero DO is Attending Physician. jh7 08:26 Arm band placed on Patient placed in an exam room, on a stretcher. aa5 08:30 Patient has correct armband on for positive identification. Placed in gown. Bed in low rs5 position. Call light in reach. Side rails up X2. 08:32 Inserted saline lock: 20 gauge in left antecubital area, using aseptic technique. Blood rs5 collected. 08:32 No provider procedures requiring assistance completed. rs5 08:38 Triage completed. aa5 08:46 CT Traumagram (Head C Spine CAP wo con) In Process Unspecified. EDMS 08:49 Jay Martinez, RN is Primary Nurse. rs5 09:23 XRAY Chest (1 view) In Process Unspecified. EDMS 10:08 Mc Fu is Hospitalizing Provider. jh7 13:40 Patient admitted, IV remains in place. rs5 Administered Medications: 08:50 Drug: Ondansetron IVP 4 mg IVP once; over 2 minutes Route: IVP; Site: left antecubital; rs5 09:05 Follow up: Response: No adverse reaction rs5 08:52 Drug: fentaNYL (PF) IVP 50 mcg IVP once Route: IVP; Site: left antecubital; rs5 09:10 Follow up: Response: No adverse reaction rs5 10:07 Drug: fentaNYL (PF) IVP 50 mcg IVP once Route: IVP; Site: left antecubital; rs5 10:30 Follow up: Response: No adverse reaction rs5 Medication: 10:44 VIS not applicable for this client. rs5 Outcome: 10:10 Decision to Hospitalize by Provider. 7 13:40 Admitted to Med/surg accompanied by tech, with chart, rs5 13:40 Condition: stable rs5 13:40 Instructed on the need for admit, Demonstrated understanding of instructions, 13:44 Patient left the ED. rs5 Signatures: Dispatcher BryanHost Brianna Chapman RN RN [email or web address] Yelena Vizcaino FNP FNP Jay Baron RN RN [id number] Martine Ramos 5 Corrections: (The following items were deleted from the chart) 08:38 08:18 PMHx: Diabetes - NIDDM; mary hernandez
--- NOTE | 2023-11-07 10:11 | EDPHYS ---
Physician Documentation [facility] Name: Twin Gamez Age: 68 yrs Sex: Male : 1955 Arrival Date: 11/07/2023 Time: 08:16 Bed 16 Private MD: ED Physician Blake Otero HPI: 11/06 08:19 This 68 yrs old Male presents to ER via Unassigned with complaints of Fall Injury, Back jh7 Pain. 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 The patient reports that he was walking his dog, suddenly became dizzy, and syncopized. He states that he woke up with his dog licking his face. Reports that this is the third fall he has had in 8 days. He states that he hit his head, has severe back pain, and reports difficulty breathing. Denies chest pain, fever, cough, loss of bowel or bladder, numbness, and tingling. Denies loss of sensation and motor function.. Historical: - Allergies: 08:19 No Known Allergies; aa5 - PMHx: 08:18 Cancer; Lung; Cancer; CVA; diabetes mellitus; Hypertension; Thyroid problem; aa5 Parkinson's disease; - Immunization history:: Adult Immunizations up to date. - Infectious Disease History:: Denies. - Social history:: Smoking status: Patient/guardian denies using tobacco. ROS: 08:19 Constitutional: Per HPI jh7 Exam: 08:19 Head/Face: Normocephalic, atraumatic. Eyes: Pupils equal round and reactive to light, jh7 extra-ocular motions intact. Lids and lashes normal. Conjunctiva and sclera are non-icteric and not injected. Cornea within normal limits. Periorbital areas with no swelling, redness, or edema. Neck: Trachea midline, no thyromegaly or masses palpated, and no cervical lymphadenopathy. Supple, full range of motion without nuchal rigidity, or vertebral point tenderness. No Meningismus. Cardiovascular: Regular rate and rhythm with a normal S1 and S2. No gallops, murmurs, or rubs. Normal PMI, no JVD. No pulse deficits. Abdomen/GI: Soft, non-tender, with normal bowel sounds. No distension or tympany. No guarding or rebound. No evidence of tenderness throughout. Skin: Warm, dry with normal turgor. Normal color with no rashes, no lesions, and no evidence of cellulitis. MS/ Extremity: Pulses equal, no cyanosis. Neurovascular intact. Full, normal range of motion. Neuro: Awake and alert, GCS 15, oriented to person, place, time, and situation. Cranial nerves II-XII grossly intact. Sensory grossly intact. 08:19 Constitutional: The patient appears alert, awake, in obvious pain, 08:19 Respiratory: the patient does not display signs of respiratory distress, Respirations: normal, Breath sounds: decreased breath sounds, that are mild, are scattered, Shallow breathing secondary to pain, 08:19 Back: pain, that is severe, of the thoracic area, T4-T6, Vital Signs: 08:18 BP 168 / 64; Pulse 74; Resp 19 S; Temp 97.8(TE); Pulse Ox 97% on R/A; Weight 108.86 kg aa5 (R); Height 5 ft. 8 in. (R); 13:00 BP 150 / 76; Pulse 73; Resp 18; Pulse Ox 99% on R/A; rs5 08:18 Body Mass Index 36.49 (108.86 kg, 172.72 cm) aa5 MDM: 08:19 Patient medically screened. [facility] 10:10 Differential diagnosis: closed head injury, contusion, fracture, multiple trauma, [facility] Syncope, vasovagal syncope, AMI, NSTEMI, electrolyte abnormality, dehydration, intracranial bleed, CVA. Data reviewed: vital signs, nurses notes, lab test result(s), EKG, radiologic studies, CT scan. Consideration of Admission/Observation Patient was admitted/placed on observation. Management of patient was discussed with the following: Hospitalist: Dr. Fu. I considered the following discharge prescriptions or medication management in the emergency department Medications were administered in the Emergency Department. See MAR. Independent interpretation of the following test(s) in the Emergency Department EKG: See my EKG interpretation above. Historians other than the Patient: Spouse/Significant Other: . Care significantly affected by the following chronic conditions: Diabetes, Hypertension. Counseling: I had a detailed discussion with the patient and/or guardian regarding the historical points, exam findings, and any diagnostic results supporting the discharge/admit diagnosis, the need for further work-up and treatment in the hospital. Response to treatment: the patient's symptoms have mildly improved after treatment. ED course: The patient remained hemodynamically stable throughout the ER visit. Reviewed all labs and CT scan. The patient will be admitted due to multiple syncopal episodes within the past 8 days. All relevant clinical information was relayed to hospitalist.. 11/06 08:31 Order name: CBC with Diff; Complete Time: 09:44 [facility] 11/06 08:31 Order name: Type And Screen; Complete Time: 09:58 [facility] 11/06 08:31 Order name: Urinalysis w/ reflexes; Complete Time: 10:56 [facility] 11/06 08:31 Order name: Troponin High Sensitivity; Complete Time: 09:44 [facility] 11/06 08:31 Order name: CMP; Complete Time: 09:44 [facility] 11/06 08:31 Order name: PT-INR; Complete Time: 09:44 [facility] 11/06 08:31 Order name: PROBNP; Complete Time: 09:44 [facility] 11/06 12:24 Order name: T4 Free; Complete Time: 12:49 EDMS 11/06 12:24 Order name: Thyroid Stimulating Hormone; Complete Time: 12:49 EDMS 11/06 12:53 Order name: Glucose, Ancillary Testing EDMS 11/06 08:31 Order name: CT Traumagram (Head C Spine CAP wo con); Complete Time: 09:44 [facility] 11/06 08:31 Order name: XRAY Chest (1 view); Complete Time: 10:03 [facility] 11/06 08:31 Order name: Labs collected and sent; Complete Time: 09:26 [facility] 11/06 08:31 Order name: EKG - Nurse/Tech; Complete Time: 09:25 [facility] EC:18 Rate is 71 beats/min. Rhythm is regular. Left axis deviation noted. CO interval is jh7 normal at 192 msec. QRS interval is normal at 150 msec. QT interval is normal at 422 msec. No Q waves. T waves are Normal. Clinical impression: Sinus Rhythm with fusion complexes and right bundle branch block. Administered Medications: 08:50 Drug: Ondansetron IVP 4 mg IVP once; over 2 minutes Route: IVP; Site: left antecubital; rs5 09:05 Follow up: Response: No adverse reaction rs5 08:52 Drug: fentaNYL (PF) IVP 50 mcg IVP once Route: IVP; Site: left antecubital; rs5 09:10 Follow up: Response: No adverse reaction rs5 10:07 Drug: fentaNYL (PF) IVP 50 mcg IVP once Route: IVP; Site: left antecubital; rs5 10:30 Follow up: Response: No adverse reaction rs5 Disposition: 12:24 I was immediately available on-site in the Emergency Department for consultation in the ms3 care of the patient. Disposition Summary: 11/07/23 10:10 Hospitalization Ordered Notes: Hospitalization Status: Inpatient Admission [facility] Provider: Mc Fu [facility] Condition: Stable [facility] Problem: new [facility] Symptoms: have worsened [facility] Bed/Room Type: Standard [facility] Location: Telemetry/MedSurg (Inpatient)(11/07/23 12:45) bd Room Assignment: [facility](11/07/23 12:45) bd Diagnosis - Syncope [facility] - Repeated falls [facility] - Contusion of back wall of thorax [facility] Forms: - Medication Reconciliation Form [facility] - SBAR form [facility] - Leadership Thank You Letter [facility] Signatures: Dispatcher [employer] EDMS Kaylyn Raya bd Brianna Flores, RN RN aa5 Blake Otero DO DO ms3 Yelena Vizcaino, BUFFET RUNNER BUFFET RUNNER 7 Jya Martinez RN RN rs5 Corrections: (The following items were deleted from the chart) 08:31 08:31 CBC+H.LAB.BRZ ordered. EDMS EDMS 08:31 08:31 TYPE AND SCREEN+BB.LAB.BRZ ordered. EDMS EDMS 08:31 08:31 Urinalysis+U.LAB.BRZ ordered. EDMS EDMS 08:31 08:31 Troponin High Sensitivity+C.LAB.BRZ ordered. EDMS EDMS 08:31 08:31 COMPREHENSIVE METABOLIC PANEL+C.LAB.BRZ ordered. EDMS EDMS 08:31 08:31 PROTIME (+INR)+COAG.LAB.BRZ ordered. EDMS EDMS 08:31 08:31 PROBNP+C.LAB.BRZ ordered. EDMS EDMS 08:32 08:31 Head C Spine Cap Wo Con+CT.RAD.BRZ ordered. EDMS EDMS 08:32 08:32 Chest Single View+RAD.RAD.BRZ ordered. 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 The patient reports that he was walking his dog, suddenly became dizzy, and syncopized. He states that he woke up with his dog licking his face. Reports that this is the third fall he has had in 8 days. He states that he hit his head, has severe back pain, and reports difficulty breathing. Denies chest pain, fever, cough, loss of bowel or bladder, numbness, and tingling. Denies loss of sensation and motor function.. [facility] 11:12 10:10 Telemetry/MedSurg (Inpatient) [facility] 11:12 10:10 [facility] 12:45 11:12 [facility] ER HOLD [facility] 12:45 11:12 ERHOLD- bd
--- NOTE | 2023-11-07 10:46 | P.HP ---
Certification for Inpatient Patient admitted to: Inpatient With expected LOS: >2 Midnights Patient will require the following post-hospital care: None Practitioner: I am a practitioner with admitting privileges, knowledge of patient current condition, hospital course, and medical plan of care. Services: Services provided to patient in accordance with Admission requirements found in Title 42 Section 412.3 of the Code of Federal Regulations Patient History Date of Service: 11/07/23 Reason for admission: syncopal episode History of Present Illness: Twin Gamez is a 68 year old male with Pmhx Lung Cancer, CVA, diabetes mellitus, Hypertension, Thyroid problem, Parkinson's disease sent to the ED with chief complaint of syncopal episodes while walking his dog. He reports suddenly becoming dizzy and then woke up with his dog licking his face. He has fallen 3 times in 8 days, each syncopal episode was while walking outside with his dog. He reports not taking his thyroid medication due to running out. He lost his PCP and needs to find a new one. His neurologist changed his Parkinson's medications due to his previous syncopal episodes and his first dose was this morning. Business Project Manager informed him of a murmur. Will evaluate further with an echo. BP 168 / 64; Pulse 74; Resp 19 S; Temp 97.8(TE); Pulse Ox 97% on R/A. Laboratory evaluation sodium 135, CO2 33, BUN/creatinine 25/1.29, GFR 60, serum glucose 171, troponin 13.7, BNP 93. CXR "The lungs are clear. No pneumothorax or effusion. The cardiomediastinal contours are unremarkable. IMPRESSION: No acute cardiopulmonary process" EKG Rate is 71 beats/min. Rhythm is regular. Left axis deviation noted. MA interval is normal at 192 msec. QRS interval is normal at 150 msec. QT interval is normal at 422 msec. No Q waves. T waves are Normal. Clinical impression: Sinus Rhythm with fusion complexes and right bundle branch block. Traumascan negative for acute findings Twin will be admitted to hospitalist service for further evaluation and treatment for syncopal episodes. Allergies No Known Allergies Allergy (Verified 09/04/14 14:56) Home Medications: Ezetimibe/Simvastatin [Vytorin 10-80 mg Tablet] 1 tab PO DAILY 09/04/14 Famotidine [Pepcid] 20 mg PO DAILY 09/04/14 Glipizide [Glipizide ER] 15 mg PO TID 09/04/14 Metformin ER [Glucophage ER] 500 mg PO SEECOM 09/04/14 Thyroid,Pork [Wisner Thyroid] 180 mg PO DAILY 09/04/14 Warfarin Sodium 7.5 mg PO SEECOM 09/04/14 Aspirin Tab [Fiordaliza Aspirin*] 1 tab PO DAILY 09/03/21 Cinnamon Bark [Cinnamon] 1 cap PO DAILY 09/03/21 Magnesium Oxide [Magnesium] 400 mg PO DAILY 09/03/21 Multivit-Mins/Iron/Folic/Lycop [Centrum Men's Tablet] 1 tab PO DAILY 09/03/21 Mv-Mn/Iron/Folic Acid/Herb 190 [Vitamin D3 Complete Caplet] 400 mg PO DAILY 09/03/21 Triamterene/Hydrochlorothiazid [Triamterene-Hctz 37.5-25 mg Cp] 1 cap PO DAILY 09/03/21 Turmeric Root Extract [Turmeric Curcumin] 1 cap PO DAILY 09/03/21 Thyroid,Pork [Wisner Thyroid] 60 mg PO DAILY 30 Days #30 tablet 09/04/21 Thyroid,Pork [Wisner Thyroid] 90 mg PO DAILY 30 Days #30 tablet 09/04/21 - Past Medical/Surgical History Diabetic: Yes -: HTN -: DM -: GERD -: Hypothyroidism -: Lymphedema -: Sleep Apnea -: Obesity -: LLE [place] Filter 1994 -: Hernia repair -: Right shoulder -: Right knee -: Right elbow -: Bilateral hands -: Cataract rt eye - Family History Father -: Heart disease Mother -: Heart disease, Lung disease, Diabetes, Kidney disease - Social History Alcohol use: No CD- Drugs: No Caffeine use: No Review of Systems Respiratory: Shortness of Breath Neurological: Other (dizzy) Physical Examination - Physical Exam General: Alert, In no apparent distress, Oriented x3 HEENT: Atraumatic, Normocephalic, PERRLA Neck: Supple, 2+ carotid pulse no bruit Respiratory: Clear to auscultation bilaterally, Normal air movement Cardiovascular: Normal pulses, Regular rate/rhythm, Normal S1 S2, Systolic murmur Capillary refill: <2 Seconds Gastrointestinal: Normal bowel sounds, Soft and benign, No tenderness, Distended (obese) Musculoskeletal: No tenderness, No warmth Integumentary: No rashes Neurological: Abnormal speech (mild aphasia) - Studies Laboratory Data (last 24 hrs) 11/07/23 11/07/23 11/07/23 09:09 09:09 09:09 WBC 7.40 Hgb 14.4 Hct 45.9 Plt Count 257 PT 21.6 H INR 2.00 Sodium 135 L Potassium 4.2 BUN 25 H Creatinine 1.29 Glucose 171 H Total Bilirubin 0.6 AST 14 L ALT < 10 L Alkaline Phosphatase 93 Assessment and Plan - Plan Assessment and plan Syncopal episode x 3 Trauma, Frequent falls History of Parkinson's -CXR "The lungs are clear. No pneumothorax or effusion. The cardiomediastinal contours are unremarkable. IMPRESSION: No acute cardiopulmonary process" -Traumascan negative for acute findings -orthostatics -ECHO -Continue home medications -Fall precaution History of diabetes mellitus -Accu-Chek with sliding scale insulin -Serum glucose 171 FELICIA -BUN/creatinine 25/1.29, GFR 60 -Gentle hydration History of lung cancer History of DVT history of CVA History of hypothyroidism -Taking Coumadin at home, INR 2 -Continue home medication -TSH/Free T4 pending DVT PPx Coumadin Full code LOS 2 days Discharge Plan: Home Plan to discharge in: 48 Hours - Advance Directives Does patient have a Living Will: No Does patient have a Durable POA for Healthcare: No
[2023-11-07 10:55] LABS: Specific Gravity 1.028 (1.005-1.030); Sqamous Epithelial None Seen /HPF (None Seen); Urine Bacteria None Seen /HPF (<20); Urine Bilirubin NEGATIVE (Negative); Urine Blood Negative (Negative); Urine Clarity Clear (Clear); Urine Color Light-Yellow (Yellow); Urine Culture Reflex Order NOT NEEDED; Urine Glucose 4+ (Over) (Negative); Urine Ketones NEGATIVE (Negative); Urine Microscopic Reflex YN ORDER UMIC; Urine Nitrite NEGATIVE (Negative); Urine Protein 1+ (Negative); Urine RBC <5 /HPF (None Seen); Urine Urobilinogen Normal (Normal); Urine WBC <5 /HPF (<5)
[2023-11-07] MEDS: INSULIN REGULAR (HUMAN) 100 UNIT/ML SQ SCH (11:30)
[2023-11-07 12:24] LABS: Thyroid Stimulating Hormone 2.81 uIU/mL (0.358-3.740)
[2023-11-07] MEDS ORDERED: HYDROCODONE/APAP 5/325 MG TAB PO PRN (14:13)
[2023-11-07] MEDS ORDERED: ACETAMINOPHEN 500 MG TAB PO PRN (14:13)
[2023-11-07] MEDS: HYDRALAZINE HCL 20 MG/ML VIAL IV PRN (14:25)
[2023-11-07] MEDS: MORPHINE 2 MG/ML SYR IV PRN (14:25)
[2023-11-07 14:33] VITALS: BMI 36.5
[2023-11-07 15:07] VITALS: O2SAT 98
[2023-11-08 04:12] LABS: Albumin 3.2 g/dL (3.4-5.0); Albumin/Globulin Ratio 0.9 (1.1-1.8); Anion Gap 12.1 mEq/L (5.0-15.0); Bilirubin Total 0.6 mg/dL (0.2-1.0); Globulin 3.6 g/dL (2.3-3.5); Magnesium 2.1 mg/dL (1.6-2.4); Phosphorus 2.9 mg/dL (2.5-4.9); Potassium 4.1 mEq/L (3.5-5.1); Protein, Total 6.8 g/dL (6.4-8.2)
[2023-11-08] MEDS: THYROID 30 MG TAB PO SCH (05:13)
[2023-11-08] MEDS: HOME MED 1 EA UNK (Dapagliflozin Propanediol [Farxiga] 10 MG Tablet) PO SCH (08:46)
[2023-11-08] MEDS: ISOSORBIDE MONO SR 30 MG TAB PO SCH (08:50)
[2023-11-08] MEDS: GLIPIZIDE S.A. 5 MG TAB PO SCH (08:50)
[2023-11-08] MEDS: METOPROLOL TAR 25 MG TAB PO SCH (08:50)
[2023-11-08] MEDS: CARBIDOPA/LEVODOPA 25/100 TAB PO SCH (10:16)
[2023-11-08 12:23] VITALS: BP 121/59; TEMP 97.1
--- NOTE | 2023-11-08 13:57 | P.DS ---
Admission Date: 11/07/23 Discharge Date: 11/08/23 Disposition: ROUTINE DISCHARGE Discharge Condition: GOOD Reason for Admission: syncopal episode Brief History of Present Illness: Twin Gamez is a 68 year old male with Pmhx Lung Cancer, CVA, diabetes mellitus, Hypertension, Thyroid problem, Parkinson's disease sent to the ED with chief complaint of syncopal episodes while walking his dog. He reports suddenly becoming dizzy and then woke up with his dog licking his face. He has fallen 3 times in 8 days, each syncopal episode was while walking outside with his dog. Hospital Course: Patient was admitted to the hospital for syncope. He reports he had a few episodes similar to this in the past few weeks. He does have history of Parkinson's and his dose of carbidopa levodopa was recently increased although some the episodes did occur prior to this dose increase. He is admitted to the hospital cardiac enzymes were negative x 3, he was monitored in telemetry and did not have significant arrhythmias. Orthostatic vital signs were obtained and negative. Patient ambulated with a walker around the floor multiple times and not have any symptoms of dizziness/near syncope. Patient/and of the other report that he does have a walker and other assistive devices at home, recommend patient uses these assistive devices at least for the next few weeks. Please continue your home medications as prescribed You should follow-up with your primary care doctor, neurologist in the next 1 to 2 weeks. Also recommend follow-up with cardiology in 1 to 2 weeks. Resume outpatient physical therapy Vital Signs/Physical Exam: Temp Pulse Resp BP Pulse Ox 97.1 F 66 14 121/59 L 92 11/08/23 12:00 11/08/23 12:00 11/08/23 12:00 11/08/23 12:11/08/23 12:00 General: Alert, In no apparent distress, Oriented x3 HEENT: Atraumatic, PERRLA Neck: Supple, JVD not distended Respiratory: Clear to auscultation bilaterally, Normal air movement Cardiovascular: Regular rate/rhythm, Normal S1 S2 Gastrointestinal: Normal bowel sounds, No tenderness Musculoskeletal: No tenderness Integumentary: No rashes Neurological: Normal speech, Normal tone, Normal affect Laboratory Data at Discharge: WBC 7.40 thou/uL (4.3-10.9) 11/07/23 09:09 Hgb 14.4 g/dL (13.6-17.9) 11/07/23 09:09 Hct 45.9 % (39.6-49.0) 11/07/23 09:09 Plt Count 257 thou/uL (152-406) 11/07/23 09:09 PT 21.6 SECONDS (9.5-12.5) H 11/07/23 09:09 INR 2.00 11/07/23 09:09 Sodium 139 mEq/L (136-145) 11/08/23 03:28 Potassium 4.1 mEq/L (3.5-5.1) 11/08/23 03:28 BUN 20 mg/dL (7-18) H 11/08/23 03:28 Creatinine 1.15 mg/dL (0.70-1.30) 11/08/23 03:28 Glucose 146 mg/dL (74-106) H 11/08/23 03:28 Phosphorus 2.9 mg/dL (2.5-4.9) 11/08/23 03:28 Magnesium 2.1 mg/dL (1.6-2.4) 11/08/23 03:28 Total Bilirubin 0.6 mg/dL (0.2-1.0) 11/08/23 03:28 AST 16 U/L (15-37) 11/08/23 03:28 ALT 18 U/L (16-61) 11/08/23 03:28 Alkaline Phosphatase 92 U/L (45-117) 11/08/23 03:28 Triglycerides 251 mg/dL (<150) H 11/08/23 03:28 Cholesterol 150 mg/dL (<200) 11/08/23 03:28 HDL Cholesterol 33 mg/dL (40-60) L 11/08/23 03:28 Cholesterol/HDL Ratio 4.55 11/08/23 03:28 Home Medications: Ezetimibe/Simvastatin [Vytorin 10-80 mg Tablet] 1 tab PO DAILY 09/04/14 Glipizide [Glipizide ER] 15 mg PO TID 09/04/14 Aspirin Tab [Fiordaliza Aspirin*] 1 tab PO DAILY 09/03/21 Cinnamon Bark [Cinnamon] 1 cap PO DAILY 09/03/21 Multivit-Mins/Iron/Folic/Lycop [Centrum Men's Tablet] 1 tab PO DAILY 09/03/21 Turmeric Root Extract [Turmeric Curcumin] 1 cap PO DAILY 09/03/21 Dapagliflozin Propanediol [Farxiga] 10 mg PO DAILY 11/07/23 Isosorbide Mononitrate [Isosorbide Mononitrate ER] 30 mg PO DAILY 11/07/23 Metoprolol Tartrate 12.5 mg PO BID 11/07/23 Thyroid,Pork [Administration Physician Thyroid] 120 mg PO DAILY 11/07/23 Triamterene/Hydrochlorothiazid [Triamterene-Hctz 37.5-25 mg Tb] 1 each PO DAILY 11/07/23 Warfarin Sodium 7.5 mg PO DAILY 11/07/23 Physician Discharge Instructions: Patient was admitted to the hospital for syncope. He reports he had a few episodes similar to this in the past few weeks. He does have history of Parkinson's and his dose of carbidopa levodopa was recently increased although some the episodes did occur prior to this dose increase. He is admitted to the hospital cardiac enzymes were negative x 3, he was monitored in telemetry and did not have significant arrhythmias. Orthostatic vital signs were obtained and negative. Patient ambulated with a walker around the floor multiple times and not have any symptoms of dizziness/near syncope. Patient/and of the other report that he does have a walker and other assistive devices at home, recommend patient uses these assistive devices at least for the next few weeks. Please continue your home medications as prescribed You should follow-up with your primary care doctor, neurologist in the next 1 to 2 weeks. Also recommend follow-up with cardiology in 1 to 2 weeks. Resume outpatient physical therapy Diet: ADA Activity: Change positions slowly Followup: Gerardo Toth MD [Primary Care Provider] - 1-2 Weeks Time spent managing pt's care (in minutes): 35
[2023-11-08] MEDS ORDERED: WARFARIN SODIUM 7.5 MG TAB PO SCH ×2 (17:00)
[2023-11-08 18:09] LABS: PT Prothrombin Time 23.4 SECONDS (9.5-12.5)
--- NOTE | 2023-11-08 20:56 | PN ---
This is a Code 44 note regarding conversion of the patient from an inpatient to an observation status . Brief Note: The patient is a 68-year-old gentleman who was admitted with syncope. The medical maribeth p was negative. The patient had started a new Parkinson's medication and was walking without the madelaine ropriate support that he needs to ambulate such as a walker, and fell. He has had multiple falls in the recent past. His workup was negative, and he was advised on not walking without his walker and t aking extreme caution, and making sure the ground that he walks on is stable for him. Upon review of the chart, I agree that this is a Code 44 and I approve the Code 44. /MODL Voice ID: [id number] Report ID: [id number]
--- NOTE | 2023-11-09 07:13 | ECHO ---
HEIGHT: 5 ft 8 in WEIGHT: 240 lb 0 oz DATE OF STUDY: 11/08/[address]: Dwayne Dill MD 2-DIMENSIONAL: YES M.MODE: YES DOPPLER: YES COLOR FLOW: YES TDS: PORTABLE: YES DEFINITY: BUBBLE STUDY: DIAGNOSIS: SYNCOPAL EPISODE TIMES THREE, MURMUR CARDIAC HISTORY: CATHERIZATION: NO SURGERY: NO PROSTHETIC VALVE: NO PACEMAKER: NO MEASUREMENTS (cm) DIASTOLIC (NORMALS) SYSTOLIC (NORMALS) IVSd 1.1 (0.6-1.2) LA Diam 3.0 (1.9-4.0) LVEF 50% LVIDd 4.3 (3.5-5.7) LVIDs 3.2 (2.0-3.5) %FS 25% LVPWd 1.2 (0.6-1.2) Ao Diam 2.9 (2.0-3.7) 2 DIMENSIONAL ASSESSMENT: RIGHT ATRIUM: NORMAL LEFT ATRIUM: NORMAL RIGHT VENTRICLE: NORMAL LEFT VENTRICLE: NORMAL TRICUSPID VALVE: NOT WELL SEEN MITRAL VALVE: MITRAL ANNULAR CALCIFICATION PULMONIC VALVE: NOT WELL SEEN AORTIC VALVE: CALCIFIED AORTIC VALVE PERICARDIAL EFFUSION: NONE AORTIC ROOT: NORMAL LEFT VENTRICULAR WALL MOTION: NORMAL DOPPLER/COLOR FLOW: SEE BELOW COMMENTS: 1. POOR WINDOWS 2. NORMAL LEFT VENTRICULAR EJECTION FRACTION 55-60% TECHNOLOGIST: SUJATA MEYER
[2023-11-12] MEDS ORDERED: WARFARIN SODIUM 2.5 MG TAB PO SCH (17:00)
[2023-11-12] MEDS ORDERED: WARFARIN SODIUM 1 MG TAB PO SCH (17:00)
== END 2023-11-08 14:16 | disposition home or self-care (01) ==
LOC: ER 08:16 → ERHOLD 10:59 → INTOOBSV 10:59 → 4TH 12:55
PROVIDERS: ADMIT Internal Medicine; ATTEND Hospitalist
DX: R55 Syncope and collapse (principal); G20.A1 Parkinson's disease without dyskinesia, without mention of fluctuations; S20.229A Contusion of unspecified back wall of thorax, initial encounter; W18.39XA Other fall on same level, initial encounter; Y93.89 Activity, other specified; Y92.9 Unspecified place or not applicable; N17.9 Acute kidney failure, unspecified; E11.9 Type 2 diabetes mellitus without complications; I10 Essential (primary) hypertension; E03.9 Hypothyroidism, unspecified; Z85.118 Personal history of other malignant neoplasm of bronchus and lung; Z83.3 Family history of diabetes mellitus; Z82.49 Family history of ischemic heart disease and other diseases of the circulatory system; Z83.6 Family history of other diseases of the respiratory system; Z84.1 Family history of disorders of kidney and ureter; Z86.73 Personal history of transient ischemic attack (TIA), and cerebral infarction without residual deficits; Z86.718 Personal history of other venous thrombosis and embolism; Z91.81 History of falling
CPT/HCPCS: 93005; 93306; 85025; 81001; 36415 ×2; 86900; 83735; 86850; 84100; 85610 ×2; 80061; 86901; 82947 ×5; 84443; 84484 ×3; 84439; 80053 ×2; 83880; 70450; 71250; 72125; 71045; 97116; 96375; 96374; 99285; J1815; J0360 ×2; J3010 ×2; J2270 ×2; J2405; G0378

== ENCOUNTER 2024-08-13 17:12 | Emergency (ER) | payer OTHER, BC ==
--- NOTE | 2024-08-13 17:47 | EDPHYS ---
Physician Documentation [facility] Name: Twin Gamez Age: 69 yrs Sex: Male : 1955 Arrival Date: 08/13/2024 Time: 17:12 Bed 19 Private MD: ED Physician Clayton Sanchez HPI: 08/13 17:33 This 69 yrs old Male presents to ER via Wheelchair with complaints of Chest Pain. cp 17:33 The patient or guardian reports chest pain that is located primarily in the anterior cp chest wall, left. Onset: 30 minute(s) ago. 17:33 The pain does not radiate. The chest pain is described as a pressure. Duration: The cp patient or guardian reports a single episode, that is still ongoing, and worsening. 17:33 Severity of pain: in the emergency department the pain is a 9 / 10. cp 17:33 Associated signs and symptoms: Pertinent positives: lower extremity swelling, Pertinent cp negatives: abdominal pain, cough, diaphoresis, syncope. Historical: - Allergies: 17:23 No Known Allergies; ap3 - PMHx: 17:23 Cancer; Cancer; CVA; Hypertension; diabetes mellitus; niidm diabetese; Parkinson's ap3 disease; Thyroid problem; - Immunization history:: Client reports receiving the 2nd dose of the Covid vaccine, Pneumococcal vaccine is up to date, Flu vaccine is up to date. - Infectious Disease History:: Denies. - Social history:: Smoking status: Patient/guardian denies using tobacco. ROS: 17:35 Cardiovascular: Positive for chest pain, Negative for edema, palpitations, cp 17:35 Eyes: Negative for injury, pain, redness, and discharge, cp 17:35 Constitutional: Negative for body aches, chills, fever, poor PO intake, 17:35 Respiratory: Negative for cough, shortness of breath, wheezing, 17:35 Abdomen/GI: Negative for abdominal pain, vomiting, diarrhea, constipation, 17:35 Neuro: Negative for altered mental status, numbness, syncope, near syncope, weakness, Exam: 17:38 Constitutional: The patient appears in no acute distress, alert, awake, cp non-diaphoretic, non-toxic, well developed, well nourished, uncomfortable, 17:38 Head/Face: Normocephalic, atraumatic. cp 17:38 Eyes: Periorbital structures: appear normal, Conjunctiva: normal, no exudate, no cp injection, Sclera: no appreciated abnormality, Lids and lashes: appear normal, bilaterally, 17:38 ENT: External ear(s): are unremarkable, Nose: is normal, Mouth: Lips: moist, Oral mucosa: moist, mild bleeding noted left lower gum line, Posterior pharynx: Airway: no evidence of obstruction, patent, Voice: is normal, 17:38 Neck: ROM/movement: is normal, is supple, without pain, no range of motions cp limitations, 17:38 Chest/axilla: Inspection: normal, 17:38 Cardiovascular: Rate: tachycardic, Rhythm: regular, Edema: ankle edema, that is mild, JVD: is not appreciated, 17:38 Respiratory: the patient does not display signs of respiratory distress, Respirations: normal, no use of accessory muscles, no retractions, labored breathing, is not present, Breath sounds: are clear throughout, no decreased breath sounds, no stridor, no wheezing, 17:38 Abdomen/GI: Inspection: abdomen appears normal, Palpation: abdomen is soft and non-tender, in all quadrants, 17:38 Neuro: Orientation: to person, place \T\ time. Mentation: is normal, Motor: moves all fours, no focal deficits, Sensation: no obvious gross deficits, Vital Signs: 17:22 BP 120 / 58; Pulse 101; Resp 19; Pulse Ox 99% on R/A; Weight 104.33 kg; Pain 9/10; ap3 17:36 BP 128 / 66; Pulse 90; Resp 20; Pulse Ox 100% on R/A; kj2 18:02 BP 134 / 65; Pulse 101; Pulse Ox 99% on R/A; ll1 18:45 BP 110 / 60; Pulse 90; Resp 20; Temp 98.2; Pulse Ox 98% on R/A; kj2 17:22 Pain Scale: Adult ap3 MDM: 17:24 Medical Screening Exam initiated cp 17:33 Differential diagnosis: acute myocardial infarction, pleurisy, pneumonia, pneumothorax, cp pulmonary embolus, stable angina, thoracic aortic disection, unstable angina. 18:00 Data reviewed: vital signs, nurses notes, EKG, I have discussed the patient's cp presentation/case with the attending Emergency Department Physician; and as a result, I will transfer patient. 18:00 Management of patient was discussed with the following: Garbage Collector Supervisor: DR Seth, cp vp software support, who recommends transfer due to concern for posterior NE. I considered the following discharge prescriptions or medication management in the emergency department Medications were administered in the Emergency Department. See MAR. Care significantly affected by the following chronic conditions: Diabetes, Hypertension. Counseling: I had a detailed discussion with the patient and/or guardian regarding the historical points, exam findings, and any diagnostic results supporting the discharge/admit diagnosis, the need to transfer to another facility, for higher level of care. 18:07 The patient was not given aspirin in the Emergency Department. cp 18:47 Consideration of Admission/Observation Escalation of care including john admission/observation considered. 08/13 17:25 Order name: Basic Metabolic Panel; Complete Time: 18:13 cp 08/13 18:24 Interpretation: Normal except: K 5.2; ANION GAP 17.2; GLUC 293; BUN 45; CRE 2.18; GFR cp 32. 08/13 17:25 Order name: CBC with Diff; Complete Time: 18:13 cp 08/13 18:24 Interpretation: Normal except: WBC 11.10; RBC 3.14; HGB 8.7; HCT 27.2; RDW 16.4; NEUT A cp 8.1. 08/13 17:25 Order name: LFT's; Complete Time: 18:13 cp 08/13 17:25 Order name: Magnesium; Complete Time: 18:13 cp 08/13 17:25 Order name: NT PRO-BNP; Complete Time: 18:13 cp 08/13 18:26 Interpretation: Reviewed. cp 08/13 17:25 Order name: PT-INR; Complete Time: 18:13 cp 08/13 18:24 Interpretation: Abnormal. cp 08/13 17:25 Order name: Troponin HS; Complete Time: 18:13 cp 08/13 18:25 Interpretation: Abnormal: Troponin HS 787.7. cp 08/13 17:25 Order name: Ptt, Activated; Complete Time: 18:13 cp 08/13 17:25 Order name: XRAY Chest (1 view); Complete Time: 18:33 cp 08/13 17:25 Order name: EKG; Complete Time: 17:26 cp 08/13 17:25 Order name: Cardiac monitoring cp 08/13 17:25 Order name: EKG - Nurse/Tech 08/13 17:25 Order name: IV Saline Lock 08/13 17:25 Order name: Labs collected and sent 08/13 17:25 Order name: O2 Per Protocol 08/13 17:25 Order name: O2 Sat Monitoring cp Administered Medications: 17:55 Drug: morphine IVP or IV 4 mg IVP once over 4 mins Route: IVP; Infused Over: 4 mins; kj2 Site: left antecubital; 18:18 Follow up: Response: No adverse reaction kj2 18:04 CANCELLED (Physician Discretion): Heparin ([place] Drip) - ([id number] units, [id number] ml) cp 12 units/kg/hr IV at calculated rate Per protocol; Max initial rate 1000 units/hr, no Bolus 18:05 Drug: Nitroglycerin IV 5 mcg/min IV at calculated rate See Administration Instructions; kj2 Standard concentration 50mg/250mL; Recommended max rate 200 mcg/min; max rate for Angina 400mcg/min; Titrate 5 mcg/min q5min to achieve goal (see titration policy); Goal parameter SBP less than 160 bpm or resolution of chest pain; low-sorbing IV tubing. Route: IV; Rate: calculated rate; Site: left antecubital; 18:48 Follow up: IV Status: Infusion continued upon transfer kj2 18:17 Drug: Ondansetron IVP 4 mg IVP once; over 2 minutes Route: IVP; Site: left antecubital; kj2 18:18 Follow up: Response: No adverse reaction kj2 18:48 Follow up: Response: No adverse reaction kj2 18:43 Drug: morphine IVP or IV 4 mg IVP once over 4 mins Route: IVP; Infused Over: 4 mins; kj2 Site: left antecubital; 18:47 Follow up: Response: Medication Administered at Departure kj2 19:11 Not Given (not given pt departed with life flight emergentlyy): insulin regular human10 kj2 units IVP once 19:11 Not Given (not given, pt departed with life flight emergentlyy): ns 0.9% 250 ml IV at kj2 calculated rate once; to be given as a bolus over 30 minutes Disposition: 18:47 Co-signature as Attending Physician, Clayton Sanchez MD I agree with the assessment and john plan of care. Disposition Summary: 08/13/24 17:46 Transfer Ordered Notes: Reason: Higher level of care cp Condition: Stable cp Problem: new cp Symptoms: have improved cp Transfer Location: [facility](08/13/24 18:39) cp Accepting Physician: DR Sanabria(08/13/24 19:13) kj2 Diagnosis - ST elevation (STEMI) myocardial infarction involving other sites - Posterior cp Wall(08/13/24 18:39) Forms: - Medication Reconciliation Form cp - SBAR form cp Signatures: Dispatcher [employer] EDClayton Haas MD MD cha Page, Corey, CHRISTINE PA cp Dariana Lam, RN RN ap3 Kim Celeste RN RN kj2 Corrections: (The following items were deleted from the chart) 17:56 17:46 Doctor cp cp 18:04 17:39 Heparin (NE Drip) 12 units/kg/hr - ([place] [id number] units, D5W IV 500 ml) IV at cp calculated rate Per protocol; Max initial rate 1000 units/hr, no Bolus ordered. cp 18:39 17:46 [facility] cp cp 18:39 17:46 ST elevation (STEMI) myocardial infarction involving other sites - Posterior cp cp 18:39 17:56 DR Summers cp 18:51 18:47 Data reviewed: vital signs, nurses notes, radiologic studies, [facility] 18:51 18:47 Independent interpretation of the following test(s) in the Emergency Department john X-Ray: My interpretation is CXR. Radiology Department Ultrasound: My interpretation is USG. [facility] 18:51 18:47 Test considered but Not performed: Labs: NO LABS , PT REFUSED. CT: NO CT DONE, PT john REFUSED , WILL COME BACK IF NEEDED, IF PAIN RETURNS. [facility] 19:13 18:39 DR Sanabria cp kj2
--- NOTE | 2024-08-13 17:47 | ER ---
Nurse's Notes [facility] Name: Twin Gamez Age: 69 yrs Sex: Male : 1955 Arrival Date: 08/13/2024 Time: 17:12 Bed 19 Private MD: Diagnosis: ST elevation (STEMI) myocardial infarction involving other sites-Posterior Wall Presentation: 08/13 17:22 Chief complaint: Patient states: he started having chest pain approx 30 minutes prior ap3 to arrival. patient reports pain to be in the middle of his chest and he rates the pain as a 9/10 on the pain scale. patient denies any nausea or vomiting at this time associated with his chest pain. Coronavirus screen: At this time, the client does not indicate any symptoms associated with coronavirus-19. Ebola Screen: No symptoms or risks identified at this time. Initial Sepsis Screen: Does the patient meet any 2 criteria? HR > 90 bpm. Does the patient have a suspected source of infection? No. Patient's initial sepsis screen is negative. Risk Assessment: Do you want to hurt yourself or someone else? Patient reports no desire to harm self or others. Onset of symptoms was August 13, 2024 at 17:00. Transition of care: patient was not received from another setting of care. 17:22 Method Of Arrival: Wheelchair ap3 17:22 Acuity: CHIARA 2 ap3 Triage Assessment: 17:23 General: Appears uncomfortable, Behavior is cooperative, appropriate for age. Pain: ap3 Complains of pain in chest Pain does not radiate. Pain currently is 9 out of 10 on a pain scale. Neuro: Level of Consciousness is awake, alert, obeys commands, Oriented to person, place, time, situation, Appropriate for age. Cardiovascular: Reports chest pain. Respiratory: Airway is patent Respiratory effort is even, unlabored, Respiratory pattern is regular, symmetrical. Historical: - Allergies: 17:23 No Known Allergies; ap3 - PMHx: 17:23 Cancer; Cancer; CVA; Hypertension; diabetes mellitus; niidm diabetese; Parkinson's ap3 disease; Thyroid problem; - Immunization history:: Client reports receiving the 2nd dose of the Covid vaccine, Pneumococcal vaccine is up to date, Flu vaccine is up to date. - Infectious Disease History:: Denies. - Social history:: Smoking status: Patient/guardian denies using tobacco. Screenin:24 Abuse screen: Denies threats or abuse. Nutritional screening: No deficits noted. ap3 Tuberculosis screening: No symptoms or risk factors identified. 17:35 [facility] ED Fall Risk Assessment (Adult) History of falling in the last 3 months, kj2 including since admission No falls in past 3 months (0 pts) Confusion or Disorientation No (0 pts) Intoxicated or Sedated No (0 pts) Impaired Gait No (0 pts) Mobility Assist Device Used No (0 pt) Altered Elimination No (0 pt) Score/Fall Risk Level 0 - 2 = Low Risk Maintained a safe environment, Hourly rounding (assess needs \T\ fall precautionary measures) done. Assessment: 17:34 Reassessment: Patient and/or family updated on plan of care and expected duration. Pain kj2 level reassessed. Patient is alert, oriented x 3, equal unlabored respirations, skin warm/dry/pink. General: Appears uncomfortable, Behavior is calm, cooperative. Pain: Complains of pain in chest Pain currently is 9 out of 10 on a pain scale. Pain began 1 hour ago. Neuro: Level of Consciousness is awake, alert, obeys commands, Oriented to person, place, time, situation. Cardiovascular: Patient's skin is warm and dry. Respiratory: Airway is patent Respiratory effort is even, unlabored. GI: Abdomen is. : No signs and/or symptoms were reported regarding the genitourinary system. 18:07 Reassessment: heparin on hold due to bleeding of gums, awaiting lab per provider Gracie [email or web address] Donna. 18:30 Reassessment: Administrative approval given By Ney transfer and line up worker. 18:43 Reassessment: Patient and/or family updated on plan of care and expected duration. Pain kj2 level reassessed. Patient is alert, oriented x 3, equal unlabored respirations, skin warm/dry/pink. morphine 4mg given, life flight arrived to transport patient. Vital Signs: 17:22 BP 120 / 58; Pulse 101; Resp 19; Pulse Ox 99% on R/A; Weight 104.33 kg; Pain 9/10; ap3 17:36 BP 128 / 66; Pulse 90; Resp 20; Pulse Ox 100% on R/A; kj2 18:02 BP 134 / 65; Pulse 101; Pulse Ox 99% on R/A; ll1 18:45 BP 110 / 60; Pulse 90; Resp 20; Temp 98.2; Pulse Ox 98% on R/A; kj2 17:22 Pain Scale: Adult ap3 ED Course: 17:13 Patient arrived in ED. ra3 17:23 Triage completed. ap3 17:24 Clayton Ferrera PA is PHCP. cp 17:24 Clayton Sanchez MD is Attending Physician. cp 17:24 EKG done, by ED staff, reviewed by Clayton Sanchez MD. ap3 17:24 Patient maintains SpO2 saturation greater than 95% on room air. ap3 17:24 Arm band placed on right wrist. ap3 17:26 Kim Celeste, EBONI is Primary Nurse. kj2 17:36 No provider procedures requiring assistance completed. kj2 17:37 Patient has correct armband on for positive identification. Provided Education on: call kj2 light. Client placed on continuous cardiac and pulse oximetry monitoring. NIBP monitoring applied. site monitor on. Pulse ox on. 17:45 Inserted saline lock: 22 gauge in left antecubital area, using aseptic technique. Blood kj2 collected. Flushed with 10 mL NS 18:00 Inserted saline lock: 22 gauge in left wrist, using aseptic technique. Flushed with 10 kj2 mL NS. 18:20 XRAY Chest (1 view) In Process Unspecified. EDMS 18:27 transfer initiated to [facility] by dr sanchez, pt denied at [facility] due to no beds bd per Evon. 18:29 transfer initiated to [facility] by kasey atkins Administered Medications: 17:55 Drug: morphine IVP or IV 4 mg IVP once over 4 mins Route: IVP; Infused Over: 4 mins; kj2 Site: left antecubital; 18:18 Follow up: Response: No adverse reaction kj2 18:04 CANCELLED (Physician Discretion): Heparin ([place] Drip) - ([id number] units, [id number] ml) cp 12 units/kg/hr IV at calculated rate Per protocol; Max initial rate 1000 units/hr, no Bolus 18:05 Drug: Nitroglycerin IV 5 mcg/min IV at calculated rate See Administration Instructions; kj2 Standard concentration 50mg/250mL; Recommended max rate 200 mcg/min; max rate for Angina 400mcg/min; Titrate 5 mcg/min q5min to achieve goal (see titration policy); Goal parameter SBP less than 160 bpm or resolution of chest pain; low-sorbing IV tubing. Route: IV; Rate: calculated rate; Site: left antecubital; 18:48 Follow up: IV Status: Infusion continued upon transfer kj2 18:17 Drug: Ondansetron IVP 4 mg IVP once; over 2 minutes Route: IVP; Site: left antecubital; kj2 18:18 Follow up: Response: No adverse reaction kj2 18:48 Follow up: Response: No adverse reaction kj2 18:43 Drug: morphine IVP or IV 4 mg IVP once over 4 mins Route: IVP; Infused Over: 4 mins; kj2 Site: left antecubital; 18:47 Follow up: Response: Medication Administered at Departure kj2 19:11 Not Given (not given pt departed with life flight emergentlyy): insulin regular human10 kj2 units IVP once 19:11 Not Given (not given, pt departed with life flight emergentlyy): ns 0.9% 250 ml IV at kj2 calculated rate once; to be given as a bolus over 30 minutes Medication: 17:36 VIS not applicable for this client. kj2 Outcome: 17:46 ER care complete, transfer ordered by MD. cp 18:44 Transferred by helicopter Note: life flight kj2 18:44 Condition: stable 18:44 Instructed on the need for transfer, 19:13 Patient left the ED. kj2 Signatures: Dispatcher [employer] EDMS Kaylyn Raya Shelby RN RN Clayton Kuo PA PA cp Dariana Lam RN RN [email or web address] Garfield Brian RN RN ll1 Radhika To ra3 Kim Celeste RN RN kj2
[2024-08-13] MEDS ORDERED: MORPHINE 4 MG/ML SYR ONE ×2 (17:53→18:41)
[2024-08-13] MEDS ORDERED: HEPARIN/D5W 25,000 UNIT/500 ML BAG IV ONE (17:54)
[2024-08-13] MEDS ORDERED: NITROGLYCERIN/D5W 50 MG/250 ML BTL IV ONE (17:54)
[2024-08-13 17:56] LABS: PT Prothrombin Time 77.7 SECONDS (9.4-12.5); PTT, Activated Partial Thromb 59.1 SECONDS (24.3-36.9)
[2024-08-13 18:02] LABS: Protime INR 7.55
[2024-08-13 18:06] LABS: Absolute Basophils 0.1 K/uL (0-0.5); Absolute Lymphocytes (CBC) 1.7 K/uL (0.7-4.9); Absolute Monocytes 1.2 K/uL (0.1-1.3); Absolute Neutrophil 8.1 K/uL (1.8-8.0); Basophils % 0.6 % (0-1.3); Eosinophils % 0.4 % (0-4.4); Hematocrit 27.2 % (39.6-49.0); Hemoglobin 8.7 g/dL (13.6-17.9); Lymphocytes % 15.6 % (15.3-44.8); MCH 27.7 pg (27.0-35.0); MCHC 32.1 g/dL (32.0-36.0); MCV 86.5 fL (80-100); Monocytes % 10.5 % (3.3-12.3); Neutrophils % 72.9 % (41.7-73.7); Nucleated Red Blood Cells % 0.1 % (0-0); Platelets 401 thou/uL (152-406); RBC Red Blood Cell Count 3.14 M/uL (4.33-5.43); Red Cell Distribution Width 16.4 % (12.1-15.2)
[2024-08-13 18:07] LABS: ALT/SGPT < 14 U/L (16-61); AST/SGOT 19 U/L (15-37); Albumin 3.4 g/dL (3.4-5.0); Albumin/Globulin Ratio 0.9 (1.1-1.8); Alkaline Phosphatase 72 U/L (45-117); Anion Gap 17.2 mEq/L (5.0-15.0); BUN Blood Urea Nitrogen 45 mg/dL (7-18); Bicarbonate 24 mEq/L (21-32); Bilirubin Direct 0.2 mg/dL (0-0.2); Bilirubin Indirect, Calculated 0.3 mg/dL (0.2-0.8); Bilirubin Total 0.5 mg/dL (0.2-1.0); Globulin 3.7 g/dL (2.3-3.5); Glomerular Filtration Rate 32 ml/min (=/>90); Glucose Level 293 mg/dL (74-106); Magnesium 2.7 mg/dL (1.6-2.4); NT PRO-BNP 1564 pg/mL (<125); Potassium 5.2 mEq/L (3.5-5.1); Protein, Total 7.1 g/dL (6.4-8.2); Sodium Level 141 mEq/L (136-145)
[2024-08-13] MEDS ORDERED: ONDANSETRON 4 MG/2 ML VIAL ONE (18:08)
[2024-08-13 18:09] LABS: Troponin High Sensitivity 787.7 pg/mL (<58.9)
--- NOTE | 2024-08-13 18:31 | RAD REPORT ---
EXAM: Chest Single View HISTORY: CHEST PAIN COMPARISON: 02/15/2024 FINDINGS: LUNGS/PLEURA: Nonspecific prominence of the pulmonary interstitium. MEDIASTINUM: The mediastinal silhouette is within normal limits. CARDIAC: The cardiac silhouette is within normal limits. UPPER ABDOMEN: No significant abnormality. BONES: No acute abnormality. LINES/TUBES/OTHER: N/A IMPRESSION: Nonspecific increased prominence of the pulmonary interstitial markings. No evidence of other markel p ulmonary edema or consolidative airspace disease.
[2024-08-14 00:59] VITALS: BP 110/60; TEMP 98.2; O2SAT 98
--- NOTE | 2024-08-15 12:33 | EKG ---
Test Date: 2024-08-13 Test Time: 17:20:11 Computerized Mill Recorder: HUSSAIN MEASUREMENT RESULTS: Intervals: Rate: 93 ND: 172 QRSD: 132 QT: 412 QTc: 512 Garfield: P: 82 ND: 172 QRS: -15 T: 35 INTERPRETIVE STATEMENTS: Normal sinus rhythm Right bundle branch block Abnormal ECG Compared to ECG 11/07/2023 09:18:29 Fusion complex(es) no longer present Left-axis deviation no longer present Electronically Signed On 08-15-24 12:30:38 BOBTAIL DRIVER by Mele Seth
== END 2024-08-13 19:13 | disposition short-term general hospital (02) ==
LOC: ER 17:12
DX: I21.29 ST elevation (STEMI) myocardial infarction involving other sites (principal); I10 Essential (primary) hypertension; G20.A1 Parkinson's disease without dyskinesia, without mention of fluctuations
CPT/HCPCS: 96365; 93005 ×3; 85025; 80048; 36415; 83735; 85610; 80076; 85730; 84484; 83880; 71045; 96375; 99285; J2405

== ENCOUNTER 2024-09-17 04:08 | Emergency (ER) | payer OTHER, BC ==
--- NOTE | 2024-09-17 05:35 | EDPHYS ---
Physician Documentation [facility] Name: Twin Gamez Age: 69 yrs Sex: Male : 1955 Arrival Date: 09/17/2024 Time: 04:08 Bed 7 Private MD: ED Physician Alphonso Fernandez HPI: 09/17 05:23 This 69 yrs old Male presents to ER via EMS with complaints of Low Blood Sugar. sp3 05:23 69-year-old male with a history of diabetes, hypertension, Parkinson's disease who just sp3 recently was discharged 2 days ago from [facility] presents with hypoglycemia episode with blood sugar dipping into the 60s. EMS arrived and administered glucagon and dextrose. Blood sugar came up to the 70s and patient is now awake and alert at baseline. Patient takes 50 mg of glipizide 3 times a day as recent dosage change. ROS otherwise negative.. Historical: - Allergies: 04:13 No Known Allergies; ha1 04:48 No Known Allergies; vc1 - Home Meds: 04:13 triamterene-hydrochlorothiazid 37.5-25 mg Oral tab 1 tab once daily [Active]; glipizide ha1 10 mg Oral tab [Active]; Atenolol Oral [Active]; lorsartin [Active]; 04:48 amiodarone 200 mg Oral tablet [Active]; aspirin 81 mg oral tablet,chewable [Active]; vc1 Dulcolax Oral [Active]; carbidopa-levodopa 25-100 mg Oral Tablet,disintegrating 3 times per day [Active]; Cinnamon oral 400 mg [Active]; clopidogrel 75 mg oral tablet [Active]; Farxiga 10 mg oral tablet [Active]; Vytorin 10-80 oral [Active]; formoterol fumarate 20 mcg/2 mL inhalation Solution for Nebulization [Active]; glipizide 10 mg Oral tablet every 8 hours [Active]; Atrovent Inhl [Active]; Metoprolol Tartrate 12.5 mg Oral every 12 hours [Active]; Miralax 17 gram/dose Oral powder [Active]; sertraline oral 75 mg [Active]; tamsulosin 0.4 mg oral capsule [Active]; [place] Thyroid 120 mg oral tablet [Active]; glipizide 5 mg oral tablet every 8 hours [Active]; isosorbide dinitrate 30 mg Oral tablet 2 times per day [Active]; Warfarin 7.5 mg and 3.5 mg Tuesday \\ Tuesday Oral [Active]; triamterene-hydrochlorothiazid 37.5-25 mg oral tablet [Active]; ezetimibe-simvastatin 10-80 mg oral tablet [Active]; multivitamin oral tablet [Active]; - PMHx: 04:13 Cancer; CVA; diabetes mellitus; Hypertension; niidm diabetese; Parkinson's disease; ha1 Thyroid problem; Cancer; BLADDER CANCER; - Immunization history:: Adult Immunizations unknown. - Infectious Disease History:: Denies. - Social history:: Smoking status: unknown. ROS: 05:24 Constitutional: Negative for fever, chills, and weight loss, Eyes: Negative for injury, sp3 pain, redness, and discharge, ENT: Negative for injury, pain, and discharge, Neck: Negative for injury, pain, and swelling, Cardiovascular: Negative for chest pain, palpitations, and edema, Respiratory: Negative for shortness of breath, cough, wheezing, and pleuritic chest pain, Abdomen/GI: Negative for abdominal pain, nausea, vomiting, diarrhea, and constipation, Back: Negative for injury and pain, : Negative for injury, bleeding, discharge, and swelling, Skin: Negative for injury, rash, and discoloration, Psych: Negative for depression, anxiety, suicide ideation, homicidal ideation, and hallucinations, Allergy/Immunology: Negative for hives, rash, and allergies, Hematologic/Lymphatic: Negative for swollen nodes, abnormal bleeding, and unusual bruising, 05:24 All other systems are negative, Exam: 05:24 Constitutional: This is a well developed, well nourished patient who is awake, alert, sp3 and in no acute distress. Head/Face: Normocephalic, atraumatic. Eyes: Pupils equal round and reactive to light, extra-ocular motions intact. Lids and lashes normal. Conjunctiva and sclera are non-icteric and not injected. Cornea within normal limits. Periorbital areas with no swelling, redness, or edema. Neck: Trachea midline, no thyromegaly or masses palpated, and no cervical lymphadenopathy. Supple, full range of motion without nuchal rigidity, or vertebral point tenderness. No Meningismus. Chest/axilla: Normal chest wall appearance and motion. Nontender with no deformity. No lesions are appreciated. Cardiovascular: Regular rate and rhythm with a normal S1 and S2. No gallops, murmurs, or rubs. Normal PMI, no JVD. No pulse deficits. Respiratory: Lungs have equal breath sounds bilaterally, clear to auscultation and percussion. No rales, rhonchi or wheezes noted. No increased work of breathing, no retractions or nasal flaring. Abdomen/GI: Soft, non-tender, with normal bowel sounds. No distension or tympany. No guarding or rebound. No evidence of tenderness throughout. Back: No spinal tenderness. No costovertebral tenderness. Full range of motion. Skin: Warm, dry with normal turgor. Normal color with no rashes, no lesions, and no evidence of cellulitis. MS/ Extremity: Pulses equal, no cyanosis. Neurovascular intact. Full, normal range of motion. 05:24 Neuro: Grossly normal exam. Intention tremor noted., Vital Signs: 04:13 BP 110 / 73; Pulse 90; Resp 19 S; Temp 97.9(O); Pulse Ox 94% on R/A; Weight 89.81 kg; ha1 Height 5 ft. 10 in. ; 06:00 BP 122 / 61; Pulse 90; Resp 18 S; Pulse Ox 98% on 3 lpm NC; ha1 04:13 Body Mass Index 28.41 (89.81 kg, 177.8 cm) ha1 MDM: 04:37 Medical Screening Exam initiated sp3 05:25 Data reviewed: vital signs, nurses notes. ED course: 69-year-old male with sp3 hypoglycemia. Differential diagnosis includes decreased p.o. intake versus inappropriate dose of medication after recent change. I will scale back his glipizide from 50 mg 3 times daily to 10 mg 3 times daily and have advised patient to get a blood glucose monitor to better document home sugars. They acknowledge and we will safely discharge him once he is able to finish his p.o. intake.. 05:34 ED course: IV not established due to difficulty in cooperation with patient. Patient sp3 declined other times. We will check blood sugar 1 more time prior to discharge. He is currently eating p.o. and in no acute distress. He understands and family understands need to decrease his glipizide dose.. 09/17 04:33 Order name: Glucose, Ancillary Testing; Complete Time: 05:25 EDMS 09/17 04:53 Order name: Glucose, Ancillary Testing; Complete Time: 05:25 EDMS 09/17 04:55 Order name: Glucose, Ancillary Testing EDMS 09/17 05:49 Order name: Glucose, Ancillary Testing EDMN 09/17 04:16 Order name: Finger Stick; Complete Time: 04:35 vc1 Administered Medications: No medications were administered Disposition Summary: 09/17/24 05:35 Discharge Ordered Notes: Location: Home sp3 Condition: Stable sp3 Diagnosis - Hypoglycemia sp3 Followup: sp3 - With: Private Physician - When: Upon discharge from the Emergency Department - Reason: Continuance of care Discharge Instructions: - Discharge Summary Sheet sp3 - Hypoglycemia sp3 Forms: - Medication Reconciliation Form sp3 - Antibiotic Education sp3 - Prescription Opioid Use sp3 - Patient Portal Instructions sp3 - Leadership Thank You Letter sp3 Signatures: Dispatcher [employer] Alphonso Saavedra MD MD sp3 Cristel Oliver RN RN vc1 Holley Engle RN RN ha1 Corrections: (The following items were deleted from the chart) 05:02 04:48 Home Meds: xytorin; vc1 vc1
--- NOTE | 2024-09-17 05:35 | ER ---
Nurse's Notes [facility] Name: Twin Gamez Age: 69 yrs Sex: Male : 1955 Arrival Date: 09/17/2024 Time: 04:08 Bed 7 Private MD: Diagnosis: Hypoglycemia Presentation: 09/17 04:13 Chief complaint: EMS states: LOW GLUCOSE LEVEL AT 39. ORAL GLUCOSE AND IM GLUCAGON WAS ha1 GIVEN. GLUCOSE LEVEL AT 70 NOW. AO X 4. 04:13 Coronavirus screen: Client denies travel out of the [place] in the last 14 days. Ebola ha1 Screen: No symptoms or risks identified at this time. Initial Sepsis Screen: Does the patient meet any 2 criteria? No. Patient's initial sepsis screen is negative. Does the patient have a suspected source of infection? No. Patient's initial sepsis screen is negative. Risk Assessment: Do you want to hurt yourself or someone else? Patient reports no desire to harm self or others. Onset of symptoms was September 17, 2024. 04:13 Method Of Arrival: EMS: [facility] ha1 04:13 Acuity: CHIARA 3 ha1 Triage Assessment: 04:13 General: Appears uncomfortable, Behavior is calm, cooperative. Pain: Complains of pain ha1 in CHRONIC RIGHT HIP PAIN. Neuro: Level of Consciousness is awake, alert, obeys commands, Oriented to person, place, time, situation. Cardiovascular: Capillary refill < 3 seconds Patient's skin is warm and dry. Respiratory: Airway is patent Respiratory effort is even, unlabored, Respiratory pattern is regular, symmetrical. GI: No signs and/or symptoms were reported involving the gastrointestinal system. Abdomen is round distended. : No signs and/or symptoms were reported regarding the genitourinary system. Derm: Skin is pale. Musculoskeletal: Circulation, motion, and sensation intact. Range of motion: intact in all extremities. Historical: - Allergies: 04:13 No Known Allergies; ha1 04:48 No Known Allergies; vc1 - Home Meds: 04:13 triamterene-hydrochlorothiazid 37.5-25 mg Oral tab 1 tab once daily [Active]; glipizide ha1 10 mg Oral tab [Active]; Atenolol Oral [Active]; lorsartin [Active]; 04:48 amiodarone 200 mg Oral tablet [Active]; aspirin 81 mg oral tablet,chewable [Active]; vc1 Dulcolax Oral [Active]; carbidopa-levodopa 25-100 mg Oral Tablet,disintegrating 3 times per day [Active]; Cinnamon oral 400 mg [Active]; clopidogrel 75 mg oral tablet [Active]; Farxiga 10 mg oral tablet [Active]; Vytorin 10-80 oral [Active]; formoterol fumarate 20 mcg/2 mL inhalation Solution for Nebulization [Active]; glipizide 10 mg Oral tablet every 8 hours [Active]; Atrovent Inhl [Active]; Metoprolol Tartrate 12.5 mg Oral every 12 hours [Active]; Miralax 17 gram/dose Oral powder [Active]; sertraline oral 75 mg [Active]; tamsulosin 0.4 mg oral capsule [Active]; [place] Thyroid 120 mg oral tablet [Active]; glipizide 5 mg oral tablet every 8 hours [Active]; isosorbide dinitrate 30 mg Oral tablet 2 times per day [Active]; Warfarin 7.5 mg and 3.5 mg Tuesday\\ Tuesday Oral [Active]; triamterene-hydrochlorothiazid 37.5-25 mg oral tablet [Active]; ezetimibe-simvastatin 10-80 mg oral tablet [Active]; multivitamin oral tablet [Active]; - PMHx: 04:13 Cancer; CVA; diabetes mellitus; Hypertension; niidm diabetese; Parkinson's disease; ha1 Thyroid problem; Cancer; BLADDER CANCER; - Immunization history:: Adult Immunizations unknown. - Infectious Disease History:: Denies. - Social history:: Smoking status: unknown. Screenin:13 [facility] ED Fall Risk Assessment (Adult) History of falling in the last 3 months, ha1 including since admission Yes- single mechanical fall (1 pt) Confusion or Disorientation No (0 pts) Intoxicated or Sedated No (0 pts) Impaired Gait Yes (1 pt) Mobility Assist Device Used Yes (1 pt) Altered Elimination No (0 pt) Score/Fall Risk Level 3 or more points = High Risk Oriented to surroundings, Maintained a safe environment, Educated pt \\T\\ family on fall prevention, incl call for assistance when getting out of bed, Hourly rounding (assess needs \\T\\ fall precautionary measures) done, Used ambulatory aids as needed (educated on \\T\\ assisted with). Abuse screen: Denies threats or abuse. Denies injuries from another. Nutritional screening: No deficits noted. Tuberculosis screening: No symptoms or risk factors identified. Assessment: 04:20 Reassessment: snacks provided. ha1 04:30 Reassessment: PATIENT REUSING IV. PATIENT STATES " I JUST GOT OUT OF THE HOSPITAL AND I ha1 AM TIRE OF GETTING POCK.". 05:00 Reassessment: Patient and/or family updated on plan of care and expected duration. Pain ha1 level reassessed. Patient is alert, oriented x 3, equal unlabored respirations, skin warm/dry/pink. 05:40 General: patients states" I have been giving Glipizide with all his other meds ha1 because they all mixed with his other medication in the medication dispenser and I do not know which one is it. Also, he just got out from the hospital and is not eating much." PROVIDED EDUCATION ON THE NEED HOLD ON ON GIVING Glipizide if GLUCOSE LEVEL IS LOW, MAINTAINING A HEALTHY DIET, WHAT TO DO IF GLUCOSE LEVEL IS LOW.. 06:00 Reassessment: AWAITING ON TRANSPORTATION. ha1 06:00 Reassessment: Patient and/or family updated on plan of care and expected duration. Pain ha1 level reassessed. Patient is alert, oriented x 3, equal unlabored respirations, skin warm/dry/pink. Vital Signs: 04:13 BP 110 / 73; Pulse 90; Resp 19 S; Temp 97.9(O); Pulse Ox 94% on R/A; Weight 89.81 kg; ha1 Height 5 ft. 10 in. ; 06:00 BP 122 / 61; Pulse 90; Resp 18 S; Pulse Ox 98% on 3 lpm NC; ha1 04:13 Body Mass Index 28.41 (89.81 kg, 177.8 cm) 1 ED Course: 04:13 Patient arrived in ED. vc1 04:13 Patient has correct armband on for positive identification. Placed in gown. Bed in low ha1 position. Call light in reach. Side rails up X2. Adult w/ patient. 04:13 Arm band placed on right wrist. ha1 04:16 Alphonso Fernandez MD is Attending Physician. vc1 04:30 Missed attempt(s): 20 gauge in left forearm. Bleeding controlled, band aid applied, ha1 catheter tip intact. 04:54 Juan Diego Woodson, RN is Primary Nurse. bm8 04:55 Triage completed. ha1 05:52 Provided Education on: MONITORING GLUCOSE LEVELS . ha1 06:06 No provider procedures requiring assistance completed. Patient did not have IV access ha1 during this emergency room visit. Administered Medications: No medications were administered Medication: 05:51 VIS not applicable for this client. ha1 Outcome: 05:35 Discharge ordered by . sp3 06:07 Condition: stable ha1 06:32 Discharged to home via ambulance, bm8 06:32 Instructed on discharge instructions, follow up and referral plans. Demonstrated understanding of instructions, follow-up care, 06:37 Patient left the ED. bm8 Signatures: Alphonso Fernandez MD MD sp3 Cristel Oliver RN RN vc1 Holley Engle RN RN 1 Juan Diego Woodson, RN RN bm8 Corrections: (The following items were deleted from the chart) 05:02 04:48 Home Meds: xytorin; vc1 vc1
[2024-09-17 06:41] VITALS: TEMP 97.9
[2024-09-17 06:42] VITALS: BP 122/61; O2SAT 98
== END 2024-09-17 06:37 | disposition home or self-care (01) ==
LOC: ER 04:08
DX: E11.649 Type 2 diabetes mellitus with hypoglycemia without coma (principal); G20.A1 Parkinson's disease without dyskinesia, without mention of fluctuations; Z79.01 Long term (current) use of anticoagulants
CPT/HCPCS: 82947; 99283

== ENCOUNTER 2024-09-18 02:07 | Inpatient (IN) | payer OTHER, BC ==
[2024-09-18] MEDS ORDERED: D5 0.45 NS 1,000 ML IV ONE ×2 (02:28→17:18)
[2024-09-18 02:43] LABS: Absolute Basophils 0.1 K/uL (0-0.5); Absolute Eosinophils 0.1 K/uL (0-0.5); Absolute Lymphocytes (CBC) 0.2 K/uL (0.7-4.9); Absolute Monocytes 0.6 K/uL (0.1-1.3); Absolute Neutrophil 8.1 K/uL (1.8-8.0); Basophils % 0.6 % (0-1.3); Eosinophils % 1.2 % (0-4.4); Hematocrit 24.1 % (39.6-49.0); Hemoglobin 7.9 g/dL (13.6-17.9); Lymphocytes % 2.4 % (15.3-44.8); MCH 25.3 pg (27.0-35.0); MCHC 32.8 g/dL (32.0-36.0); MCV 77.1 fL (80-100); MPV 7.1 fL (7.6-11.3); Monocytes % 6.7 % (3.3-12.3); Neutrophils % 89.1 % (41.7-73.7); Platelets 380 thou/uL (152-406); RBC Red Blood Cell Count 3.12 M/uL (4.33-5.43); Red Cell Distribution Width 20.3 % (12.1-15.2)
[2024-09-18 02:57] LABS: ALT/SGPT < 14 U/L (16-61); AST/SGOT 16 U/L (15-37); Albumin 2.1 g/dL (3.4-5.0); Albumin/Globulin Ratio 0.5 (1.1-1.8); Alkaline Phosphatase 71 U/L (45-117); Anion Gap 9.2 mEq/L (5.0-15.0); BUN Blood Urea Nitrogen 27 mg/dL (7-18); Bicarbonate 28 mEq/L (21-32); Bilirubin Direct 0.3 mg/dL (0-0.2); Bilirubin Indirect, Calculated 0.3 mg/dL (0.2-0.8); Bilirubin Total 0.6 mg/dL (0.2-1.0); Globulin 4.1 g/dL (2.3-3.5); Glomerular Filtration Rate 44 ml/min (=/>90); Glucose Level 122 mg/dL (74-106); Magnesium 2.2 mg/dL (1.6-2.4); NT PRO-BNP 9044 pg/mL (<125); Potassium 4.2 mEq/L (3.5-5.1); Protein, Total 6.2 g/dL (6.4-8.2); Sodium Level 128 mEq/L (136-145)
[2024-09-18 02:58] LABS: Troponin High Sensitivity 69.7 pg/mL (<58.9)
[2024-09-18 03:45] LABS: Band Neutrophils 7 % (0-1); Differential Total Cells Count 100; Eosinophils 1 % (0-3); Lymphocytes 2 % (15-42); Monocytes 8 % (0-10); Segmented Neutrophils 82 % (40-80)
[2024-09-18 03:46] LABS: Anisocytosis 1+; Blood Morphology Comment NOTED (NOT SEEN); Hypochromasia 1+; Microcytosis 1+; Platelet Estimate ADEQ; Polychromasia 1+
--- NOTE | 2024-09-18 04:02 | EDPHYS ---
Physician Documentation [facility] Name: Twin Gamez Age: 69 yrs Sex: Male : 1955 Arrival Date: 09/18/2024 Time: 02:07 Bed 25 Private MD: ED Physician Alphonso Fernandez HPI: 09/18 02:15 This 69 yrs old Male presents to ER via EMS with complaints of Low Blood Sugar. sp3 02:15 69-year-old male with history of diabetes, hypertension tension, Parkinson disease, sp3 prior CVA now presents to the ED with recurrent hypoglycemia episode. Patient was seen by me yesterday he was discharged home after blood sugar was fixed with a decrease in his dose of glipizide. Dose was changed from 15 to 10 mg. states that he did try and eat all day today but his blood sugar fell and he became with decreased responsiveness. EMS arrived to find blood sugar of 51 and administered dextrose. Patient now alert and oriented with blood sugar already from 220 to the 120. Patient has no complaints and denies fever, headache, chest pain, shortness with, abdominal pain, vomit, diarrhea or any other signs or symptoms on ROS at this time.. Historical: - Allergies: 02:10 No Known Allergies; jb4 - PMHx: 02:10 Hypertension; diabetes mellitus; CVA; Cancer; Bladder cancer; niidm diabetese; jb4 Parkinson's disease; Thyroid problem; - Immunization history:: Adult Immunizations up to date. - Infectious Disease History:: Denies. - Social history:: Smoking status: Patient denies any tobacco usage or history of. ROS: 02:16 Constitutional: Negative for fever, chills, and weight loss, Eyes: Negative for injury, sp3 pain, redness, and discharge, ENT: Negative for injury, pain, and discharge, Neck: Negative for injury, pain, and swelling, Cardiovascular: Negative for chest pain, palpitations, and edema, Respiratory: Negative for shortness of breath, cough, wheezing, and pleuritic chest pain, Abdomen/GI: Negative for abdominal pain, nausea, vomiting, diarrhea, and constipation, Back: Negative for injury and pain, : Negative for injury, bleeding, discharge, and swelling, MS/Extremity: Negative for injury and deformity, Skin: Negative for injury, rash, and discoloration, Psych: Negative for depression, anxiety, suicide ideation, homicidal ideation, and hallucinations, Allergy/Immunology: Negative for hives, rash, and allergies, Hematologic/Lymphatic: Negative for swollen nodes, abnormal bleeding, and unusual bruising, 02:16 All other systems are negative, Exam: 02:16 Constitutional: This is a well developed, well nourished patient who is awake, alert, sp3 and in no acute distress. Head/Face: Normocephalic, atraumatic. Eyes: Pupils equal round and reactive to light, extra-ocular motions intact. Lids and lashes normal. Conjunctiva and sclera are non-icteric and not injected. Cornea within normal limits. Periorbital areas with no swelling, redness, or edema. Neck: Trachea midline, no thyromegaly or masses palpated, and no cervical lymphadenopathy. Supple, full range of motion without nuchal rigidity, or vertebral point tenderness. No Meningismus. Chest/axilla: Normal chest wall appearance and motion. Nontender with no deformity. No lesions are appreciated. Cardiovascular: Regular rate and rhythm with a normal S1 and S2. No gallops, murmurs, or rubs. Normal PMI, no JVD. No pulse deficits. Respiratory: Lungs have equal breath sounds bilaterally, clear to auscultation and percussion. No rales, rhonchi or wheezes noted. No increased work of breathing, no retractions or nasal flaring. Abdomen/GI: Soft, non-tender, with normal bowel sounds. No distension or tympany. No guarding or rebound. No evidence of tenderness throughout. Back: No spinal tenderness. No costovertebral tenderness. Full range of motion. Skin: Warm, dry with normal turgor. Normal color with no rashes, no lesions, and no evidence of cellulitis. MS/ Extremity: Pulses equal, no cyanosis. Neurovascular intact. Full, normal range of motion. Neuro: Awake and alert, GCS 15, oriented to person, place, time, and situation. Cranial nerves II-XII grossly intact. Motor strength 5/5 in all extremities. Sensory grossly intact. Cerebellar exam normal. Normal gait. Vital Signs: 02:09 BP 122 / 62; Pulse 85; Resp 32; Pulse Ox 100% on R/A; jb4 02:37 BP 112 / 57; Pulse 79; Resp 32; Temp 98.3; Pulse Ox 97% on 3 lpm NC; Weight 103 kg; bm8 Height 5 ft. 8 in. ; Pain 0/10; 03:45 BP 119 / 61; Pulse 85; Resp 18; Temp 98.3; Pulse Ox 94% on 3 lpm NC; Pain 0/10; bm8 04:38 BP 126 / 68; Pulse 79; Resp 24; Temp 98.3; Pulse Ox 95% on 3 lpm NC; Pain 0/10; bm8 02:37 Body Mass Index 34.53 (103.00 kg, 172.72 cm) bm8 02:37 Pain Scale: Adult bm8 03:45 Pain Scale: Adult bm8 04:38 Pain Scale: Adult bm8 [place] Coma Score: 02:37 Eye Response: spontaneous(4). Motor Response: obeys commands(6). Verbal Response: bm8 oriented(5). Total: 15. 03:45 Eye Response: spontaneous(4). Motor Response: obeys commands(6). Verbal Response: bm8 oriented(5). Total: 15. 04:38 Eye Response: spontaneous(4). Motor Response: obeys commands(6). Verbal Response: bm8 oriented(5). Total: 15. MDM: 02:09 Medical Screening Exam initiated sp3 02:16 Data reviewed: vital signs, nurses notes, EMS record, old medical records, lab test sp3 result(s), EKG, radiologic studies. ED course: 69-year-old male with recurrent hypoglycemia episodes while on glipizide. EMS reports possible aspiration. We will go ahead and repeat blood work and place patient on D5 half-normal saline. Disposition probable 23-hour observation with continuous blood sugar monitoring periodically.. 03 02:12 Order name: Basic Metabolic Panel; Complete Time: 03:47 sp3 09/18 02:12 Order name: CBC with Diff; Complete Time: 03:47 sp3 09/18 02:12 Order name: LFT's; Complete Time: 03:47 sp3 09/18 02:12 Order name: Magnesium; Complete Time: 03:47 sp3 09/18 02:12 Order name: NT PRO-BNP; Complete Time: 03:47 sp3 09/18 02:12 Order name: Troponin HS; Complete Time: 03:47 sp3 09/18 02:56 Order name: Manual Differential; Complete Time: 03:47 EDMS 09/18 03:56 Order name: Glucose, Ancillary Testing; Complete Time: 04:00 EDMS 09/18 05:15 Order name: Magnesium EDMS 09/18 05:15 Order name: Phosphorus EDMS 09/18 05:15 Order name: Urinalysis w/ reflexes EDMS 09/18 05:15 Order name: Basic Metabolic Panel EDMS 09/18 05:15 Order name: Basic Metabolic Panel EDMS 09/18 05:15 Order name: CBC with Automated Diff EDMS 09/18 05:15 Order name: CBC with Automated Diff EDMS 09/18 08:09 Order name: Glucose, Ancillary Testing EDMS 09/18 11:13 Order name: CBC with Automated Diff EDMS / 11:15 Order name: Lactate w/ 2H reflex if indic. EDMS 09/18 11:32 Order name: Procalcitonin EDMS 09/18 11:45 Order name: Retic Count EDMS 09/18 11:52 Order name: Glucose, Ancillary Testing EDMS 09/18 12:13 Order name: Comprehensive Metabolic Panel EDMS 09/18 12:13 Order name: Troponin High Sensitivity EDMS 09/18 12:13 Order name: C-Reactive Protein EDMS 09/18 12:13 Order name: Magnesium EDMS 09/18 12:13 Order name: Iron EDMS 09/18 12:13 Order name: Vitamin B12 Level EDMS / 12:30 Order name: NT PRO-BNP EDMS / 02:12 Order name: XRAY Chest (1 view) sp3 09/18 09:28 Order name: CT EDMS 09/18 02:12 Order name: Cardiac monitoring; Complete Time: 02:31 sp3 09/18 02:12 Order name: EKG - Nurse/Tech; Complete Time: 02:29 sp3 09/18 02:12 Order name: IV Saline Lock; Complete Time: 02: sp3 09/18 02:12 Order name: Labs collected and sent; Complete Time: 02: sp3 09/18 02:12 Order name: O2 Per Protocol; Complete Time: 02: sp3 09/18 02:12 Order name: O2 Sat Monitoring; Complete Time: 02: sp3 Administered Medications: 02:36 Drug: D5-1/2 NS IV 1000 ml IV at 125 ml/hr continuous Route: IV; Rate: 125 ml/hr; Site: bm8 left forearm; 04:39 Follow up: Response: No adverse reaction; IV Status: Infusion continued upon admission bm8 Disposition Summary: 09/18/24 04:01 Hospitalization Ordered Notes: Hospitalization Status: Inpatient Admission sp3 Provider: Prince Jake spChey Condition: Stable sp3 Problem: an acute exacerbation sp3 Symptoms: have worsened sp3 Bed/Room Type: Standard sp3 Location: Telemetry/MedSurg (Inpatient)(09/18/24 16:18) bd Room Assignment: 430(09/18/24 16:18) bd Diagnosis - Persistent hypoglycemia, CHF/fluid overload, hyponatremia sp3 Forms: - Medication Reconciliation Form sp3 - SBAR form sp3 - Leadership Thank You Letter sp3 Signatures: Dispatcher [employer] EDMS Kaylyn Raya James, RN RN jb4 Alphonso Fernandez MD MD sp3 Ashley Camejo rv1 Juan Diego Woodson, RN RN bm8 Corrections: (The following items were deleted from the chart) 02:11 02:10 PMHx: Cancer; jb4 jb4 02:11 02:10 PMHx: Cancer; jb4 jb4 04:51 04:01 Telemetry/MedSurg (Inpatient) sp3 rv1 04:51 04:01 sp3 rv1 16:18 04:51 [facility] ER HOLD rv1 bd 16:18 04:51 ERHOLD- rv1 bd
--- NOTE | 2024-09-18 04:02 | ER ---
Nurse's Notes [facility] Name: Twin Gamez Age: 69 yrs Sex: Male : 1955 Arrival Date: 09/18/2024 Time: 02:07 Bed 25 Private MD: Diagnosis: Persistent hypoglycemia, CHF/fluid overload, hyponatremia Presentation: 09/18 02:08 Chief complaint:. jb4 02:09 Coronavirus screen: At this time, the client does not indicate any symptoms associated jb4 with coronavirus-19. Ebola Screen: No symptoms or risks identified at this time. Initial Sepsis Screen: Does the patient meet any 2 criteria? No. Patient's initial sepsis screen is negative. Does the patient have a suspected source of infection? No. Patient's initial sepsis screen is negative. Risk Assessment: Do you want to hurt yourself or someone else? Patient reports no desire to harm self or others. Onset of symptoms was September 18, 2024. Transition of care: patient was not received from another setting of care. 02:09 Method Of Arrival: EMS: [facility] jb4 02:09 Acuity: CHIARA 2 jb4 Triage Assessment: 02:10 General: Appears in no apparent distress. uncomfortable, Behavior is calm, cooperative, jb4 appropriate for age. Pain: Denies pain. Neuro: Level of Consciousness is awake, alert, obeys commands, Oriented to person, place, time, situation. Cardiovascular: Patient's skin is warm and dry. Respiratory: Airway is patent Respiratory effort is even, labored, Respiratory pattern is symmetrical, tachypnea. Derm: Skin is intact, Skin is pink, warm \T\ dry. Musculoskeletal: Circulation, motion, and sensation intact. Range of motion: intact in all extremities. Historical: - Allergies: 02:10 No Known Allergies; jb4 - PMHx: 02:10 Hypertension; diabetes mellitus; CVA; Cancer; Bladder cancer; niidm diabetese; jb4 Parkinson's disease; Thyroid problem; - Immunization history:: Adult Immunizations up to date. - Infectious Disease History:: Denies. - Social history:: Smoking status: Patient denies any tobacco usage or history of. Screenin:37 [facility] ED Fall Risk Assessment (Adult) History of falling in the last 3 months, bm8 including since admission No falls in past 3 months (0 pts) Confusion or Disorientation No (0 pts) Intoxicated or Sedated No (0 pts) Impaired Gait No (0 pts) Mobility Assist Device Used No (0 pt) Altered Elimination No (0 pt) Score/Fall Risk Level 0 - 2 = Low Risk Oriented to surroundings, Maintained a safe environment, Educated pt \T\ family on fall prevention, incl call for assistance when getting out of bed, Assessed \T\ reinforced patient's understanding of fall precautions, Hourly rounding (assess needs \T\ fall precautionary measures) done, Used ambulatory aids as needed (educated on \T\ assisted with), Used gait belt as appropriate. Abuse screen: Denies threats or abuse. Nutritional screening: No deficits noted. Tuberculosis screening: No symptoms or risk factors identified. Assessment: 02:37 Reassessment: Patient appears in no apparent distress at this time. Patient and/or bm8 family updated on plan of care and expected duration. Pain level reassessed. Patient is alert, oriented x 3, equal unlabored respirations, skin warm/dry/pink. General: Appears in no apparent distress. comfortable, Behavior is calm, cooperative, appropriate for age. Pain: Denies pain. Neuro: No deficits noted. Level of Consciousness is awake, alert, obeys commands, Oriented to person, place, time, situation, Appropriate for age. Cardiovascular: Denies chest pain, Capillary refill < 3 seconds in bilateral fingers Patient's skin is warm and dry. Respiratory: Airway is patent Respiratory effort is even, unlabored, Respiratory pattern is hyperventilation Breath sounds are clear bilaterally. 03:45 Reassessment: Patient appears in no apparent distress at this time. Patient and/or bm8 family updated on plan of care and expected duration. Pain level reassessed. Patient is alert, oriented x 3, equal unlabored respirations, skin warm/dry/pink. Patient denies pain at this time. Patient states feeling better. Patient states symptoms have improved. 04:38 Reassessment: Patient appears in no apparent distress at this time. Patient and/or bm8 family updated on plan of care and expected duration. Pain level reassessed. Patient is alert, oriented x 3, equal unlabored respirations, skin warm/dry/pink. Patient denies pain at this time. Patient states feeling better. Patient states symptoms have improved. Vital Signs: 02:09 BP 122 / 62; Pulse 85; Resp 32; Pulse Ox 100% on R/A; jb4 02:37 BP 112 / 57; Pulse 79; Resp 32; Temp 98.3; Pulse Ox 97% on 3 lpm NC; Weight 103 kg; bm8 Height 5 ft. 8 in. ; Pain 0/10; 03:45 BP 119 / 61; Pulse 85; Resp 18; Temp 98.3; Pulse Ox 94% on 3 lpm NC; Pain 0/10; bm8 04:38 BP 126 / 68; Pulse 79; Resp 24; Temp 98.3; Pulse Ox 95% on 3 lpm NC; Pain 0/10; bm8 02:37 Body Mass Index 34.53 (103.00 kg, 172.72 cm) bm8 02:37 Pain Scale: Adult bm8 03:45 Pain Scale: Adult bm8 04:38 Pain Scale: Adult bm8 [place] Coma Score: 02:37 Eye Response: spontaneous(4). Motor Response: obeys commands(6). Verbal Response: bm8 oriented(5). Total: 15. 03:45 Eye Response: spontaneous(4). Motor Response: obeys commands(6). Verbal Response: bm8 oriented(5). Total: 15. 04:38 Eye Response: spontaneous(4). Motor Response: obeys commands(6). Verbal Response: bm8 oriented(5). Total: 15. ED Course: 02:07 Patient arrived in ED. jj6 02:09 Alphonso Fernandez MD is Attending Physician. sp3 02:10 Triage completed. jb4 02:13 Arm band placed on right wrist. jb4 02:25 Juan Diego Woodson, EBONI is Primary Nurse. bm8 02:28 Maintain EMS IV. Dressing intact. Good blood return noted. Site clean \T\ dry. Gauge \T\ rv 1 site: 18G Left Wrist. Flushed with 10 mL NS. 02:29 Basic Metabolic Panel Sent. rv1 02:29 CBC with Diff Sent. rv1 02:30 LFT's Sent. rv1 02:30 Magnesium Sent. rv1 02:30 NT PRO-BNP Sent. rv1 02:30 Troponin HS Sent. rv1 02:37 Patient has correct armband on for positive identification. Placed in gown. Bed in low bm8 position. Call light in reach. Side rails up X2. Client placed on continuous cardiac and pulse oximetry monitoring. NIBP monitoring applied. supervisor computer operations on. Pulse ox on. NIBP on. Door closed. Warm blanket given. Verbal reassurance given. Head of bed elevated. 02:37 No provider procedures requiring assistance completed. Initial lab(s) drawn, by ED bm8 staff, sent to lab. EKG done, by ED staff, reviewed by Alphonso Fernandez MD. Oxygen administration via nasal cannula \T\ 3L/min Response to oxygen therapy: symptoms improved. 02:46 XRAY Chest (1 view) In Process Unspecified. EDMS 03:59 , No [phone]. rv1 04:01 Prince Joseph MD is Hospitalizing Provider. sp3 04:37 Patient admitted, IV remains in place. intact, No redness/swelling at site. rg5 04:38 Provided Education on: need for admission. bm8 Administered Medications: 02:36 Drug: D5-1/2 NS IV 1000 ml IV at 125 ml/hr continuous Route: IV; Rate: 125 ml/hr; Site: bm8 left forearm; 04:39 Follow up: Response: No adverse reaction; IV Status: Infusion continued upon admission bm8 Medication: 02:37 VIS not applicable for this client. bm8 Outcome: 04:01 Decision to Hospitalize by Provider. sp3 04:37 Admitted to ER Hold. Please see [facility] for further documentation. rg5 04:37 Condition: stable 04:37 Instructed on the need for admit, 18:54 Patient left the ED. ss Signatures: Dispatcher [employer] [facility] Miley Poole RN RN Kamron Seaman, RN RN jb4 Alphonso Fernandez MD MD sp3 Yelena Hammerj6 Ashley Camejo rv1 Juan Diego Woodson, RN RN bm8 Félix Mac, EBONI RN rg5 Corrections: (The following items were deleted from the chart) 02:11 02:10 PMHx: Cancer; jb4 4 02:11 02:10 PMHx: Cancer; jb4 jb4 02:13 02:09 BP 122 / 62; Pulse 85bpm; Resp 20bpm; Pulse Ox 100% RA; jb4 jb4 02:13 02:10 Musculoskeletal: Circulation, motion, and sensation intact. Range of motion: jb4 intact in all extremities, jb4
[2024-09-18] MEDS ORDERED: ONDANSETRON 4 MG/2 ML VIAL IV PRN (05:11)
--- NOTE | 2024-09-18 05:33 | P.HP ---
Certification for Inpatient Patient admitted to: Observation With expected LOS: <2 Midnights Practitioner: I am a practitioner with admitting privileges, knowledge of patient current condition, hospital course, and medical plan of care. Services: Services provided to patient in accordance with Admission requirements found in Title 42 Section 412.3 of the Code of Federal Regulations Patient History Date of Service: 09/18/24 Reason for admission: Hypoglycemia encephalopathy History of Present Illness: Patient is a 69-year-old male with a past medical history of hype rtension, type 2 diabetes mellitus, CVA and Parkinson's disease. He returns to the hospital for recurrent hypoglycemic episode. Patient was just seen here yesterday for a similar presentation. Is on glipizide 15 mg. His dose was reduced by ER from 15 to 10 mg and he was discharged. He is brought back here via EMS after he became minimally responsive. He was reportedly hypoglycemic on side with a blood glucose of 51. He received IV dextrose en route to ER. Upon arrival, his blood glucose was 220 rapidly dropped to 120. He is now on dextrose infusion. During my evaluation, patient was alert and awake. Allergies No Known Allergies Allergy (Verified 09/04/14 14:56) Home Medications: Ezetimibe/Simvastatin [Vytorin 10-80 mg Tablet] 1 tab PO DAILY 09/04/14 Glipizide [Glipizide ER] 15 mg PO TID 09/04/14 Aspirin Tab [Fiordaliza Aspirin*] 1 tab PO DAILY 09/03/21 Cinnamon Bark [Cinnamon] 1 cap PO DAILY 09/03/21 Multivit-Mins/Iron/Folic/Lycop [Centrum Men's Tablet] 1 tab PO DAILY 09/03/21 Turmeric Root Extract [Turmeric Curcumin] 1 cap PO DAILY 09/03/21 Dapagliflozin Propanediol [Farxiga] 10 mg PO DAILY 11/07/23 Isosorbide Mononitrate [Isosorbide Mononitrate ER] 30 mg PO DAILY 11/07/23 Metoprolol Tartrate 12.5 mg PO BID 11/07/23 Thyroid,Pork [Dog Track Kennel Manager Thyroid] 120 mg PO DAILY 11/07/23 Triamterene/Hydrochlorothiazid [Triamterene-Hctz 37.5-25 mg Tb] 1 each PO DAILY 11/07/23 Warfarin Sodium 7.5 mg PO DAILY 11/07/23 - Past Medical/Surgical History Diabetic: Yes -: HTN -: DM -: GERD -: Hypothyroidism -: Lymphedema -: Sleep Apnea -: Obesity -: LLE [place] Filter 1994 -: Hernia repair -: Right shoulder -: Right knee -: Right elbow -: Bilateral hands -: Cataract rt eye -: rods in neck - Family History Father -: Heart disease Mother -: Heart disease, Lung disease, Diabetes, Kidney disease - Social History Alcohol use: No CD- Drugs: No Caffeine use: No Physical Examination - Physical Exam General: Alert, Acute distress HEENT: Atraumatic, Normocephalic Cardiovascular: No edema, Normal pulses, Regular rate/rhythm, Normal S1 S2 Neurological: Normal speech - Studies Laboratory Data (last 24 hrs) 09/18/24 09/18/24 02:20 02:20 WBC 9.10 Hgb 7.9 L Hct 24.1 L Plt Count 380 Sodium 128 L Potassium 4.2 BUN 27 H Creatinine 1.65 H Glucose 122 H Magnesium 2.2 Total Bilirubin 0.6 AST 16 ALT < 14 L Alkaline Phosphatase 71 Assessment and Plan - Problems (Diagnosis) (1) Hypoglycemia Current Visit: Yes Status: Acute (2) CVA (cerebral vascular accident) Current Visit: No Status: Acute Qualifiers: (3) Chronic venous hypertension w/ulcer and inflammation involv right side Current Visit: No Status: Acute (4) Diabetes Current Visit: No Status: Acute (5) Wellington filter in place Current Visit: No Status: Acute (6) H/O deep venous thrombosis Current Visit: No Status: Acute (7) H/O gastroesophageal reflux (GERD) Current Visit: No Status: Acute (8) Healed or old pulmonary embolism Current Visit: No Status: Acute (9) Hypertension Current Visit: No Status: Acute (10) Hypothyroidism Current Visit: No Status: Acute Qualifiers: (11) Obesity (BMI 30-39.9) Current Visit: No Status: Acute (12) Sleep apnea Current Visit: No Status: Acute - Plan Assessment This is a 69-year-old male who is being admitted for hypoglycemia encephalopathy after is brought in by EMS for decreased responsiveness. Patient was hypoglycemic on site blood glucose of 51. He received a dextrose en route to the ER. Due to rapid drop in blood glucose, he has not been started on dextrose infusion. He is being kept under observation Hypoglycemia Type 2 diabetes mellitus Parkinson's disease CVS Hypertension Hypothyroidism Plan: Will admit under observation with telemetry Dextrose infusion Clarence diet, encourage p.o. intake Wean off dextrose infusion as tolerated Resume rest of home medications upon reconciliation - Advance Directives Does patient have a Living Will: No Does patient have a Durable POA for Healthcare: No
[2024-09-18] MEDS: D5 0.45 NS 1,000 ML IV SCH (06:00)
[2024-09-18 06:03] VITALS: BMI 34.4
--- NOTE | 2024-09-18 06:09 | RAD REPORT ---
EXAM: XR Chest, 1 View CLINICAL HISTORY: The patient is 69 years old and is Male; Possible aspiration. TECHNIQUE: Single view of the chest. COMPARISON: No relevant prior studies available. FINDINGS: Lungs: Right lower lobe airspace opacification may represent pneumonia. No pulmonary vascular congestion. Pleural space: Unremarkable. No pneumothorax. Heart: Unremarkable. No cardiomegaly. Mediastinum: Unremarkable. Bones/joints: No acute fracture visualized. Upper abdomen: No free air in the visualized upper abdomen. IMPRESSION: Right lower lobe airspace opacification may represent pneumonia. Electronically signed by: Wendy Jackson MD 09/18/2024 04:31 AM [facility] V2 Due to temporary technical issues with the PACS/Plays.IO reporting system, reports are being colette d by the in-house radiologist without review as a courtesy to ensure prompt reporting the interpreting radiologist is fully responsible for the content of the report. Transcribed Date/Time: 09/18/2024 6:09 AM
[2024-09-18 07:07] LABS: Magnesium 2.3 mg/dL (1.6-2.4); Phosphorus 3.9 mg/dL (2.5-4.9)
[2024-09-18] MEDS ORDERED: HEPARIN 5000 UNIT/ML 1 ML VIAL ONE (08:38)
[2024-09-18] MEDS ORDERED: HYDROCODONE/APAP 10/325 TAB ONE (08:38)
[2024-09-18] MEDS: HYDROCODONE/APAP 10/325 TAB PO ONE (08:45)
[2024-09-18] MEDS: HEPARIN 5000 UNIT/ML 1 ML VIAL SQ SCH (08:47)
--- NOTE | 2024-09-18 09:09 | P.PN ---
Subjective Date of Service: 09/18/24 Patient presents from home home after being at an outside hospital for 5 weeks. Patient was at [facility] for acute myocardial infarction. Patient was given stent x 2. Patient developed multiple issues postoperatively including pneumonia and weakness. Patient was also severely anemic on arrival. Patient was supposed to go to rehab but he refused. He was home on Tuesday. Over the last few days the has been unable to care for him as she is also pretty debilitated. Patient's long-term prognosis is very poor. Will try to get him to a care home facility for placement at this time. Patient will be admitted for anemia and pneumonia and will continue with therapy eval. Review of Systems 10-point ROS is otherwise unremarkable Physical Examination - Vital Signs Temperature: 98 F Blood Pressure: 108/50 Pulse: 86 Respirations: 18 Pulse Ox (%): 99 - Physical Exam General: Alert, In no apparent distress, Oriented x3 HEENT: Atraumatic, PERRLA, EOMI Neck: Supple, JVD not distended Respiratory: Diminished, Rhonchi/gurgles Cardiovascular: Regular rate/rhythm, Normal S1 S2 Gastrointestinal: Normal bowel sounds, Soft and benign, Non-distended, No tenderness Musculoskeletal: No clubbing, No swelling, No tenderness Integumentary: No rashes Neurological: Sensation intact, Cranial nerves 3-12 intact - Studies Laboratory Data (last 24 hrs) 09/18/24 09/18/24 02:20 02:20 WBC 9.10 Hgb 7.9 L Hct 24.1 L Plt Count 380 Sodium 128 L Potassium 4.2 BUN 27 H Creatinine 1.65 H Glucose 122 H Magnesium 2.2 Total Bilirubin 0.6 AST 16 ALT < 14 L Alkaline Phosphatase 71 Medications List Reviewed: Yes Assessment & Plan - Problems (Diagnosis) (1) Hypoxemia Current Visit: Yes Status: Acute (2) Pneumonia Current Visit: Yes Status: Acute (3) Coronary artery disease status post coronary stent insertion Current Visit: Yes Status: Acute (4) Hypoglycemia Current Visit: Yes Status: Acute (5) Diabetes Current Visit: No Status: Acute (6) Wellington filter in place Current Visit: No Status: Acute (7) H/O deep venous thrombosis Current Visit: No Status: Acute (8) Hypertension Current Visit: No Status: Acute (9) Hypothyroidism Current Visit: No Status: Acute Qualifiers: (10) Obesity (BMI 30-39.9) Current Visit: No Status: Acute - Plan Plan: 1. Patient with hypoxemia most likely related to her right lower lobe infiltrate. Patient was at an outside hospital for 5 weeks. Concern for healthcare acquired pneumonia. Will cover with broad-spectrum antibiotics pending lab results and imaging findings. Continue with physical therapy. Patient is very deconditioned and weak and will need care home facility placement at discharge. Wean off O2 as tolerated 2. CAD with stent x 2; this was done over the last few weeks. Continue with antiplatelet regimen and statin therapy and strict blood pressure control 3. Metabolic syndrome; resume thyroid medications as well as strict blood pressure and blood sugar control 4. History of DVT and PE; continue with anticoagulation 5. GI DVT prophylaxis Discharge Plan: Home Plan to discharge in: Greater than 2 days - Advance Directives Does patient have a Living Will: No Does patient have a Durable POA for Healthcare: No - Code Status/Comfort Care Code Status Assessed: Yes Code Status: Full Code Critical Care: No Time Spent Managing PTS Care (In Minutes): 35
--- NOTE | 2024-09-18 09:28 | RAD REPORT ---
EXAMINATION: CT CHEST WITHOUT CONTRAST CLINICAL INDICATION: pneumonia TECHNIQUE: Routine CT scan of the chest without intravenous contrast. One or more of the following do se reduction techniques were used: Automated exposure control, adjustment of the mA and/or kV according to patient size, and/or iterative reconstruction. Unless otherwise specified, incidental fi ndings do not require dedicated imaging follow-up. COMPARISON: 09/12/2023 FINDINGS: LOWER NECK: Unremarkable. LUNGS: Moderate bilateral groundglass lung opacities seen. No right middle lobe there is 25 mm nodula r lesion present which has enlarged from the prior study at which time it measured 18 mm. Atelectasis is present in both posterior lung bases. PLEURA: Small to moderate bilateral pleural effusions. MEDIASTINUM AND LYMPH NODES: No mediastinal mass or fluid collection. Normal size mediastinal, hilar, and axillary lymph nodes. OSSEOUS STRUCTURES AND CHEST WALL: Intact. UPPER ABDOMEN: No significant abnormalities. IMPRESSION: Diffuse groundglass and interstitial lung opacities are present which may represent pneumonia or pulm onary edema. Small to moderate bilateral pleural effusions. Enlargement of lobulated right middle lobe nodular lesion to 25- 26 mm, previously 18 mm. The finding s are very concerning for neoplasm. PET/CT follow-up would be recommended after the patient's current acute findings resolves. Alternatively, biopsy/tissue diagnosis may be considered. Examination limited by lack of IV contrast.
[2024-09-18 11:11] LABS: Absolute Eosinophils 0.1 K/uL (0-0.5); Absolute Lymphocytes (CBC) 0.3 K/uL (0.7-4.9); Absolute Monocytes 0.7 K/uL (0.1-1.3); Basophils % 0.4 % (0-1.3); Eosinophils % 0.6 % (0-4.4); Hematocrit 24.5 % (39.6-49.0); Hemoglobin 8.1 g/dL (13.6-17.9); Lymphocytes % 3.2 % (15.3-44.8); MCH 25.3 pg (27.0-35.0); MCHC 32.9 g/dL (32.0-36.0); MCV 76.9 fL (80-100); Monocytes % 6.5 % (3.3-12.3); Neutrophils % 89.3 % (41.7-73.7); Platelets 375 thou/uL (152-406); RBC Red Blood Cell Count 3.18 M/uL (4.33-5.43)
[2024-09-18 11:44] LABS: Percent Reticulocyte Count 3.75 % (0.4-2.05)
[2024-09-18 12:11] LABS: AST/SGOT 13 U/L (15-37); Albumin 2.1 g/dL (3.4-5.0); Albumin/Globulin Ratio 0.5 (1.1-1.8); Alkaline Phosphatase 71 U/L (45-117); Anion Gap 9.1 mEq/L (5.0-15.0); BUN Blood Urea Nitrogen 24 mg/dL (7-18); Bicarbonate 28 mEq/L (21-32); Bilirubin Total 0.6 mg/dL (0.2-1.0); Glomerular Filtration Rate 55 ml/min (=/>90); Glucose Level 96 mg/dL (74-106); Magnesium 2.1 mg/dL (1.6-2.4); Potassium 4.1 mEq/L (3.5-5.1); Protein, Total 6.1 g/dL (6.4-8.2); Sodium Level 131 mEq/L (136-145)
--- NOTE | 2024-09-18 12:11 | EKG ---
Test Date: 2024-09-18 Test Time: 02:24:59 Biomass Facilitator: RV MEASUREMENT RESULTS: Intervals: Rate: 81 WY: 216 QRSD: 138 QT: 444 QTc: 515 [place]: P: 52 WY: 216 QRS: -23 T: -31 INTERPRETIVE STATEMENTS: Sinus rhythm with 1st degree AV block Right bundle branch block T wave abnormality, consider inferior ischemia Abnormal ECG Compared to ECG 08/13/2024 17:53:09 First degree AV block now present Right bundle-branch block now present T-wave abnormality now present Possible ischemia now present Left-axis deviation no longer present Myocardial infarct finding no longer present Electronically Signed On 09-18-24 12:10:18 RESAW MACHINE OPERATOR by Mele Seth
[2024-09-18 12:12] LABS: ALT/SGPT < 14 U/L (16-61)
[2024-09-18 12:13] LABS: Troponin High Sensitivity 69.8 pg/mL (<58.9)
[2024-09-18 12:30] LABS: NT PRO-BNP 9143 pg/mL (<125)
[2024-09-18] MEDS: ASPIRIN EC 81 MG TAB PO SCH (12:50)
[2024-09-18] MEDS: CLOPIDOGREL 75 MG TABLET PO SCH (12:51)
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
[2024-09-18] MEDS ORDERED: CLOPIDOGREL 75 MG TABLET ONE (13:59)
[2024-09-18] MEDS ORDERED: ASPIRIN EC 81 MG TAB PO ONE (13:59)
[2024-09-19 05:58] LABS: Absolute Eosinophils 0.2 K/uL (0-0.5); Absolute Lymphocytes (CBC) 0.4 K/uL (0.7-4.9); Absolute Monocytes 0.5 K/uL (0.1-1.3); Absolute Neutrophil 5.4 K/uL (1.8-8.0); Basophils % 0.8 % (0-1.3); Eosinophils % 2.8 % (0-4.4); Hematocrit 22.2 % (39.6-49.0); Hemoglobin 7.2 g/dL (13.6-17.9); Lymphocytes % 5.4 % (15.3-44.8); MCH 24.9 pg (27.0-35.0); MCHC 32.3 g/dL (32.0-36.0); MCV 77.3 fL (80-100); MPV 6.8 fL (7.6-11.3); Monocytes % 7.3 % (3.3-12.3); Neutrophils % 83.7 % (41.7-73.7); Nucleated Red Blood Cells % 0.2 % (0-0); Platelets 366 thou/uL (152-406); RBC Red Blood Cell Count 2.88 M/uL (4.33-5.43)
[2024-09-19 06:09] LABS: AST/SGOT 15 U/L (15-37); Albumin 1.7 g/dL (3.4-5.0); Albumin/Globulin Ratio 0.4 (1.1-1.8); Alkaline Phosphatase 73 U/L (45-117); Anion Gap 9.1 mEq/L (5.0-15.0); BUN Blood Urea Nitrogen 20 mg/dL (7-18); Bicarbonate 28 mEq/L (21-32); Bilirubin Total 0.5 mg/dL (0.2-1.0); Globulin 3.9 g/dL (2.3-3.5); Glomerular Filtration Rate 60 ml/min (=/>90); Glucose Level 130 mg/dL (74-106); Magnesium 2.2 mg/dL (1.6-2.4); Potassium 4.1 mEq/L (3.5-5.1); Protein, Total 5.6 g/dL (6.4-8.2); Sodium Level 133 mEq/L (136-145)
[2024-09-19 06:10] LABS: ALT/SGPT < 14 U/L (16-61)
--- NOTE | 2024-09-19 08:51 | P.PN ---
Date of Service: 09/19/24 Subjective Patient still very weak and diminished appetite. Patient appears to be malnourished with severe iron deficiency and severe hypoalbuminemia. Patient recovering from a pneumonia with procalcitonin levels elevated. Will continue with antibiotics. Will climate change analyst to oral antibiotics. Patient awaiting for rehab placement once he is medically stable. Physical Examination - Vital Signs reviewed - Physical Exam General: Alert, In no apparent distress, Oriented x3 Respiratory: Diminished, Rhonchi/gurgles Cardiovascular: Regular rate/rhythm, Normal S1 S2 Gastrointestinal: Normal bowel sounds, Soft and benign, Non-distended, No tenderness Musculoskeletal: No clubbing, No swelling, No tenderness Integumentary: No rashes Neurological: No focal deficits Assessment & Plan - Problems (Diagnosis) (1) Hypoxemia Current Visit: Yes Status: Acute (2) Pneumonia Current Visit: Yes Status: Acute (3) Coronary artery disease status post coronary stent insertion Current Visit: Yes Status: Acute (4) Hypoglycemia Current Visit: Yes Status: Acute (5) Diabetes Current Visit: No Status: Acute (6) [place] filter in place Current Visit: No Status: Acute (7) H/O deep venous thrombosis Current Visit: No Status: Acute (8) Hypertension Current Visit: No Status: Acute (9) Hypothyroidism Current Visit: No Status: Acute (10) Obesity (BMI 30-39.9) Current Visit: No Status: Acute - Plan Continue with plan of care mentioned below: 1. Patient with hypoxemia most likely related to her right lower lobe infiltrate. Patient was at an outside hospital for 5 weeks. Concern for healthcare acquired pneumonia. Will cover with broad-spectrum antibiotics pending lab results and imaging findings. Continue with physical therapy. Patient is very deconditioned and weak and will need intermediate facility placement at discharge. Wean off O2 as tolerated 2. CAD with stent x 2; this was done over the last few weeks. Continue with antiplatelet regimen and statin therapy and strict blood pressure control 3. Metabolic syndrome; resume thyroid medications as well as strict blood pr essure and blood sugar control 4. History of DVT and PE; continue with anticoagulation 5. Anemia of iron deficiency; iron transfusion and blood transfusion 6. Hypothyroidism; continue with low-dose Synthroid 7. GI DVT prophylaxis Discharge Plan: Home Plan to discharge in: Greater than 2 days - Advance Directives Does patient have a Living Will: No Does patient have a Durable POA for Healthcare: No - Code Status/Comfort Care Code Status Assessed: Yes Code Status: Full Code Critical Care: No Time Spent Managing PTS Care (In Minutes): 35
[2024-09-19] MEDS: ENSURE MAX PROTEIN 330 ML LIQUID PO SCH (09:00)
[2024-09-19] MEDS: SOD FERRIC GLUC COMPLX/SUCROSE 250 MG in NA CHLORIDE 0.9% 250 ML IV SCH ×2 (09:00→11:08)
[2024-09-19] MEDS: ISOSORBIDE MONO SR 30 MG TAB PO SCH (09:46)
[2024-09-19] MEDS: PANTOPRAZOLE 40MG TABLET PO ONE (09:46)
[2024-09-19] MEDS: METOPROLOL TAR 25 MG TAB PO SCH (09:46)
[2024-09-19] MEDS: ALBUMIN HUMAN 25% 100 ML IV ONE (09:47)
[2024-09-19] MEDS: **PT MED**Dapagliflozin Propanediol [Farxiga] 10 MG Tablet PO SCH (09:47)
--- NOTE | 2024-09-19 10:28 | P.PN ---
Subjective Date of Service: 09/19/24 Chief Complaint: Hypoglycemia encephalopathy Subjective: No new changes, No C/O voiced, Tolerating diet, Ambulating, Improving Review of Systems 10-point ROS is otherwise unremarkable Physical Examination - Vital Signs Temperature: 98.1 F Blood Pressure: 109/51 Pulse: 81 Respirations: 16 Pulse Ox (%): 95 - Physical Exam General: Alert, In no apparent distress HEENT: Atraumatic, PERRLA, EOMI Neck: Supple, JVD not distended Respiratory: Clear to auscultation bilaterally, Normal air movement Cardiovascular: Regular rate/rhythm, Normal S1 S2 Gastrointestinal: Normal bowel sounds, No tenderness Musculoskeletal: No tenderness Integumentary: No rashes Neurological: Normal speech, Normal tone, Normal affect Lymphatics: No axilla or inguinal lymphadenopathy - Studies Medications List Reviewed: Yes Assessment And Plan - Current Problems (Diagnosis) (1) Coronary artery disease status post coronary stent insertion Current Visit: Yes Status: Acute Plan: report two stents placement recently at [facility], troponin mild elevated, no chest pain Troponin mild elevated with no significant delta Echo shows low normal LV systolic function with inferior wall hypokinesis, normal filling pressure get records from [facility] ASA 81 mg daily Plavix 75 mg daily Lipitor 40 mg daily (2) Recurrent pulmonary emboli Current Visit: No Status: Chronic Plan: patient is on Coumadin, hold for now and keep on heparin drip. can re start coumadin or if patient is able to offer NOAC then Eliquis 5 mg po BID
--- NOTE | 2024-09-19 10:49 | ECHO ---
HEIGHT: 5 ft 8 in WEIGHT: 227 lb 0 oz DATE OF STUDY: 09/18/[address]: Mele Seth MD 2-DIMENSIONAL: YES M.MODE: YES DOPPLER: YES COLOR FLOW: YES TDS: PORTABLE: YES DEFINITY: BUBBLE STUDY: DIAGNOSIS: NON ST ELEVATION MYOCARDIAL INFARCTION CARDIAC HISTORY: CATHERIZATION: SURGERY: PROSTHETIC VALVE: PACEMAKER: MEASUREMENTS (cm) DIASTOLIC (NORMALS) SYSTOLIC (NORMALS) IVSd 0.9 (0.6-1.2) LA Diam 3.9 (1.9-4.0) LVEF 45-50% LVIDd 4.8 (3.5-5.7) LVIDs 3.6 (2.0-3.5) %FS 26% LVPWd 0.9 (0.6-1.2) Ao Diam 2.8 (2.0-3.7) 2 DIMENSIONAL ASSESSMENT: RIGHT ATRIUM: NORMAL LEFT ATRIUM: NORMAL RIGHT VENTRICLE: NORMAL LEFT VENTRICLE: NORMAL TRICUSPID VALVE: TRACE TRICUSPID REGURGITATION MITRAL VALVE: MODERATE MITRAL ANNULAR CALCIFICATION, MILD MITRAL REGURGITATION PULMONIC VALVE: NORMAL AORTIC VALVE: CALCIFIED PERICARDIAL EFFUSION: NONE AORTIC ROOT: NORMAL LEFT VENTRICULAR WALL MOTION: MILD INFERIOR WALL HYPOKINESIS DOPPLER/COLOR FLOW: DIASTOLIC DYSFUNCTION COMMENTS: 1. LOW NORMAL LEFT VENTRICULAR SYSTOLIC FUNCTION, EJECTION FRACTION 45-50%, MILD INFERIOR WALL HYPOKINESIS 2. DIASTOLIC DYSFUNCTION 3. CALCIFIED AORTIC VALVE, MODERATE AORTIC VALVE STENOSIS 4. MILD MITRAL REGURGITATION 5. NORMAL FILLING PRESSURE (RIGHT ATRIAL PRESSURE 0-5 mmHg) TECHNOLOGIST: SELENA RAVI [facility]
[2024-09-19 11:02] LABS: Absolute Eosinophils 0.2 K/uL (0-0.5); Absolute Lymphocytes (CBC) 0.3 K/uL (0.7-4.9); Absolute Monocytes 0.5 K/uL (0.1-1.3); Absolute Neutrophil 5.3 K/uL (1.8-8.0); Basophils % 0.7 % (0-1.3); Eosinophils % 3.3 % (0-4.4); Hematocrit 21.7 % (39.6-49.0); Lymphocytes % 4.5 % (15.3-44.8); MCH 24.7 pg (27.0-35.0); MCHC 32.1 g/dL (32.0-36.0); MCV 76.9 fL (80-100); MPV 6.9 fL (7.6-11.3); Monocytes % 7.5 % (3.3-12.3); Platelets 341 thou/uL (152-406); RBC Red Blood Cell Count 2.83 M/uL (4.33-5.43); Red Cell Distribution Width 19.9 % (12.1-15.2)
[2024-09-19] MEDS: NA CHLORIDE 0.9% 250 ML ONE (13:55)
[2024-09-19] MEDS: PANTOPRAZOLE 40MG TABLET PO SCH (16:26)
[2024-09-19 18:07] LABS: Hematocrit 23.2 % (39.6-49.0); Hemoglobin 7.3 g/dL (13.6-17.9)
[2024-09-20] MEDS: NA CHLORIDE 0.9% 250 ML ONE (14:02)
[2024-09-20] MEDS: ALBUMIN HUMAN 25% 100 ML IV ONE (18:44)
[2024-09-20 21:55] VITALS: O2SAT 93
[2024-09-20 22:11] LABS: Absolute Basophils 0.1 K/uL (0-0.5); Absolute Eosinophils 0.2 K/uL (0-0.5); Absolute Lymphocytes (CBC) 0.6 K/uL (0.7-4.9); Absolute Monocytes 0.5 K/uL (0.1-1.3); Absolute Neutrophil 4.8 K/uL (1.8-8.0); Eosinophils % 3.9 % (0-4.4); Hematocrit 27.2 % (39.6-49.0); Hemoglobin 8.7 g/dL (13.6-17.9); Lymphocytes % 9.5 % (15.3-44.8); MCH 25.2 pg (27.0-35.0); MCHC 32.2 g/dL (32.0-36.0); MCV 78.4 fL (80-100); MPV 6.4 fL (7.6-11.3); Monocytes % 8.5 % (3.3-12.3); Neutrophils % 77.1 % (41.7-73.7); Nucleated Red Blood Cells % 0.1 % (0-0); Platelets 404 thou/uL (152-406); RBC Red Blood Cell Count 3.46 M/uL (4.33-5.43); Red Cell Distribution Width 19.2 % (12.1-15.2)
[2024-09-20 22:24] LABS: Anion Gap 11.1 mEq/L (5.0-15.0); Potassium 4.1 mEq/L (3.5-5.1)
[2024-09-21] MEDS: SOD FERRIC GLUC COMPLX/SUCROSE 250 MG in NA CHLORIDE 0.9% 250 ML IV SCH (10:03)
[2024-09-21 13:07] VITALS: BP 133/63; TEMP 97.8
--- NOTE | 2024-09-29 01:43 | P.PN ---
Date of Service: 09/20/24 Subjective Patient continues to improve. Patient denies any new complaints. Clinical symptoms are much better. Physical Examination - Vital Signs reviewed - Physical Exam General: Alert, In no apparent distress, Oriented x3 Respiratory: Diminished, Rhonchi/gurgles Cardiovascular: Regular rate/rhythm, Normal S1 S2 Gastrointestinal: Normal bowel sounds, Soft and benign, Non-distended, No tenderness Musculoskeletal: No clubbing, No swelling, No tenderness Integumentary: No rashes Neurological: No focal deficits Assessment & Plan - Problems (Diagnosis) (1) Hypoxemia Current Visit: Yes Status: Acute (2) Pneumonia Current Visit: Yes Status: Acute (3) Coronary artery disease status post coronary stent insertion Current Visit: Yes Status: Acute (4) Hypoglycemia Current Visit: Yes Status: Acute (5) Diabetes Current Visit: No Status: Acute (6) [place] filter in place Current Visit: No Status: Acute (7) H/O deep venous thrombosis Current Visit: No Status: Acute (8) Hypertension Current Visit: No Status: Acute (9) Hypothyroidism Current Visit: No Status: Acute (10) Obesity (BMI 30-39.9) Current Visit: No Status: Acute - Plan Continue with plan of care mentioned below: 1. Patient with hypoxemia most likely related to her right lower lobe infiltrate. Oxygenation has improved. Patient was at an outside hospital for 5 weeks. Concern for healthcare acquired pneumonia. Will cover with broad- spectrum antibiotics pending lab results and imaging findings. Continue with ph ysical therapy. Patient is very deconditioned and weak and will need care home facility placement at discharge. Wean off O2 as tolerated 2. CAD with stent x 2; this was done over the last few weeks. Continue with antiplatelet regimen and statin therapy and strict blood pressure control. 3. Metabolic syndrome; resume thyroid medications as well as strict blood pressure and blood sugar control 4. History of DVT and PE; continue with anticoagulation 5. Anemia of iron deficiency; iron transfusion and blood transfusion 6. Hypothyroidism; continue with low-dose Synthroid 7. GI DVT prophylaxis Discharge Plan: Home Plan to discharge in: Greater than 2 days - Advance Directives Does patient have a Living Will: No Does patient have a Durable POA for Healthcare: No - Code Status/Comfort Care Code Status Assessed: Yes Code Status: Full Code Critical Care: No Time Spent Managing PTS Care (In Minutes): 35
--- NOTE | 2024-09-29 01:44 | P.DS ---
Discharge Date: 09/21/24 Disposition: ROUTINE DISCHARGE Discharge Condition: GOOD Reason for Admission: Hypoglycemia encephalopathy - Problems (1) Hypoxemia Status: Acute (2) Pneumonia Status: Acute (3) Coronary artery disease status post coronary stent insertion Status: Acute (4) Hypoglycemia Status: Acute (5) Diabetes Status: Acute (6) [place] filter in place Status: Acute (7) H/O deep venous thrombosis Status: Acute (8) Hypertension Status: Acute (9) Hypothyroidism Status: Acute Qualifiers: (10) Obesity (BMI 30-39.9) Status: Acute Brief History of Present Illness: Patient is a 69-year-old male with a past medical history of hypertension, type 2 diabetes mellitus, CVA and Parkinson's disease. He returns to the hospital for recurrent hypoglycemic episode. Patient was just seen here yesterday for a similar presentation. Is on glipizide 15 mg. His dose was reduced by ER from 15 to 10 mg and he was discharged. He is brought back here via EMS after he became minimally responsive. He was reportedly hypoglycemic on side with a blood glucose of 51. He received IV dextrose en route to ER. Upon arrival, his blood glucose was 220 rapidly dropped to 120. He is now on dextrose infusion. During my evaluation, patient was alert and awake. Hospital Course: Patient's clinical condition has stabilized. Patient's blood sugars are stable as well. Patient is really deconditioned and patient needs to continue with therapy and building up his strength. Patient also needs to increase his nutrition. Patient is doing well and [facility] Patient is stable for discharge with outpatient follow-up with his specialist as mentioned before. Vital Signs/Physical Exam: Temp Pulse Resp BP Pulse Ox 97.8 F 67 17 133/63 93 09/21/24 12:00 09/21/24 12:00 09/21/24 12:00 09/21/24 12:00 09/21/24 12:00 General: Alert, In no apparent distress, Oriented x3 Laboratory Data at Discharge: WBC 6.20 thou/uL (4.3-10.9) 09/20/24 22:03 Hgb 8.7 g/dL (13.6-17.9) L 09/20/24 22:03 Hct 27.2 % (39.6-49.0) L 09/20/24 22:03 Plt Count 404 thou/uL (152-406) 09/20/24 22:03 Sodium 140 mEq/L (136-145) 09/20/24 22:03 Potassium 4.1 mEq/L (3.5-5.1) 09/20/24 22:03 BUN 18 mg/dL (7-18) 09/20/24 22:03 Creatinine 0.99 mg/dL (0.70-1.30) 09/20/24 22:03 Glucose 170 mg/dL (74-106) H 09/20/24 22:03 Phosphorus 3.9 mg/dL (2.5-4.9) 09/18/24 06:40 Magnesium 2.2 mg/dL (1.6-2.4) 09/19/24 05:40 Total Bilirubin 0.5 mg/dL (0.2-1.0) 09/19/24 05:40 AST 15 U/L (15-37) 09/19/24 05:40 ALT < 14 U/L (16-61) L 09/19/24 05:40 Alkaline Phosphatase 73 U/L (45-117) 09/19/24 05:40 Home Medications: Dapagliflozin Propanediol [Farxiga] 10 mg PO DAILY 11/07/23 Isosorbide Mononitrate [Isosorbide Mononitrate ER] 30 mg PO BID 11/07/23 Metoprolol Tartrate 12.5 mg PO BID 11/07/23 Aspirin [Aspirin EC] 81 mg PO DAILY 09/20/24 Carbidopa/Levodopa [Carbidopa-Levodopa 25-100 Tab] 2 each PO TID 09/20/24 Clopidogrel Bisulfate [Plavix] 75 mg PO DAILY 09/20/24 Latanoprost 1 drop OP BEDTIME 09/20/24 Meclizine HCl 12.5 mg PO BID 09/20/24 Sertraline HCl 75 mg PO DAILY 09/20/24 Tamsulosin HCl 0.4 mg PO DAILY 6PM 09/20/24 Apixaban [Eliquis] 2.5 mg PO BID #60 tablet 09/21/24 Ensure Max Protein 273 ml PO BID #60 can 09/21/24 Pantoprazole [Protonix Tab*] 40 mg PO BIDAC #60 tab 09/21/24 New Medications: Apixaban [Eliquis] 2.5 mg PO BID #60 tablet Ensure Max Protein 273 ml PO BID #60 can Pantoprazole [Protonix Tab*] 40 mg PO BIDAC #60 tab Physician Discharge Instructions: -DC [facility] -Follow-up with PCP in 1 to 2 weeks -Follow-up with Cardiology in 1 to 2 weeks -Follow up with pulmonary for evaluation for PET scan -Follow-up with urology for bladder CA -Please call Dr. Jalloh at [phone] if any questions regarding hospital stay -Please call nursing station at [phone] if any nursing or medication qu estions -Return to the emergency room if symptoms worsen Diet: AHA Activity: Physical therapy eval Followup: Gerardo Toth MD [Primary Care Provider] - 1-2 Weeks (Call for appointment.) Time spent managing pt's care (in minutes): 35
== END 2024-09-21 14:35 | disposition home or self-care (01) | DRG 637 ==
LOC: ER 02:07 → ERHOLD 05:11 → 4TH 17:32 → OBSVTOIN 09-19 18:44
PROVIDERS: ADMIT Internal Medicine; ATTEND Hospitalist
PROC: 30233N1 Transfusion of Nonautologous Red Blood Cells into Peripheral Vein, Percutaneous Approach (ICD-10-PCS; principal; 2024-09-19)
DX: E11.649 Type 2 diabetes mellitus with hypoglycemia without coma (principal); J18.9 Pneumonia, unspecified organism; E87.1 Hypo-osmolality and hyponatremia; I87.331 Chronic venous hypertension (idiopathic) with ulcer and inflammation of right lower extremity; G93.49 Other encephalopathy; E46 Unspecified protein-calorie malnutrition; I11.0 Hypertensive heart disease with heart failure; I50.9 Heart failure, unspecified; E03.9 Hypothyroidism, unspecified; E66.9 Obesity, unspecified; D50.9 Iron deficiency anemia, unspecified; G47.30 Sleep apnea, unspecified; E88.09 Other disorders of plasma-protein metabolism, not elsewhere classified; K21.9 Gastro-esophageal reflux disease without esophagitis; G20.A1 Parkinson's disease without dyskinesia, without mention of fluctuations; I25.10 Atherosclerotic heart disease of native coronary artery without angina pectoris; R09.02 Hypoxemia; Z86.73 Personal history of transient ischemic attack (TIA), and cerebral infarction without residual deficits; Z85.51 Personal history of malignant neoplasm of bladder; Z79.84 Long term (current) use of oral hypoglycemic drugs; Z79.01 Long term (current) use of anticoagulants; Z79.82 Long term (current) use of aspirin; Z79.899 Other long term (current) drug therapy; Z86.718 Personal history of other venous thrombosis and embolism; Z86.711 Personal history of pulmonary embolism; Z68.34 Body mass index [BMI] 34.0-34.9, adult; Z95.5 Presence of coronary angioplasty implant and graft; Y95 Nosocomial condition
CPT/HCPCS: 36415; 36430; 71045; 71250; 80048; 80053; 80076; 82607; 82947; 83540; 83605; 83735; 83880; 84100; 84145; 84484; 85014; 85018; 85025; 85044; 86140; 86850; 86900; 86901; 86920; 92610; 93005; 93306; 96360; 96361; 97110; 97161; 97530; 99283; 99285; G0378; J1644; J2916; J7050; J7799; P9016; P9047